=== PATIENT | female | born 1965 | race Caucasian/White ===

== ENCOUNTER 2016-07-29 10:28 | Emergency (ER) | payer BC ==
[~2016-07-29] VITALS: Wt 106.2 kg
[~2016-07-29 10:28] MED LIST: ALBU8.5H3 INH; APR50 PO; ASPI-664 PO; ASPI81TA3 PO; FURO40TA4 PO; GLIP-95 PO; HYD25 PO; LOSA100T47 PO; METF-382 PO; METO-448 PO; METO25TA4 PO
[2016-07-29] MEDS ORDERED: ONDANSETRON 4 MG INJ IV STA (11:41)
[2016-07-29] MEDS ORDERED: morphine 4 MG/ML VIAL IV STA (11:41)
[2016-07-29 12:20] LABS: POTASSIUM 4.3 mmol/L (3.5-5.1)
[2016-07-29 12:22] LABS: CREATININE 1.39 mg/dl (0.44-1.00)
[2016-07-29 12:23] LABS: CALCIUM 9.3 mg/dl (8.4-10.2)
[2016-07-29 12:34] LABS: INR 0.93; PROTIME 12.5 Sec (12.2-14.2)
[2016-07-29 12:35] LABS: PARTIAL THROMBOPLASTIN TIME 32.8 Sec (25.0-35.0)
--- NOTE | 2016-07-29 12:35 | RADRPT ---
PROCEDURE: CT Left Lower Leg without contrast CLINICAL INDICATION: Left calf pain and swelling evaluate for abscess, hematoma, fracture TECHNIQUE: Transaxial images were obtained on a multi-slice CT scanner without intravenous contras t. Sagittal and coronal re-formations were subsequently made. One or more of the following dose reduction techniques were used: - Automated exposure control. - Adjustment of the mA and/or kV according to patient size. - Use of iterative reconstruction technique. Radiation: The CTDIvol is 18.46 mGy and the DLP is 888.56 mGycm. COMPARISON: None. FINDINGS: Osseous structures: The osseous elements appear intact with no fracture or destructive process ident ified. There is mild calcaneal spurring at the insertion of the Achilles tendon and plantar aponeuro sis. Joint spaces: The femoral tibial and patellar femoral as well as the ankle joint spaces appear unrem arkable. No joint effusion is identified. Soft tissues: The muscles appear unremarkable. There is stranding within the subcutaneous fat at th e posterior medial lower leg and within the ankle region. A few punctate calcifications are seen wi thin the subcutaneous fat compatible with phleboliths. IMPRESSION: 1. The osseous elements appear intact and the joint spaces are well maintained with no joint effusi on evident. 2. There is stranding of the subcutaneous fat posteriorly and medially within the lower leg and ank le regions suspicious for inflammation or edema. No abscess is identified within the limitations of lack of intravenous contrast. 3. Mild calcaneal spurring 4. A few punctate calcifications are seen in the subcutaneous fat compatible with phleboliths. Physician Marlon Date Time Electronically viewed and signed by Physician Marlon on 07/29/2016 12:34 /
--- NOTE | 2016-07-29 12:37 | RADRPT ---
PROCEDURE: US Lower extremity Venous. CLINICAL INDICATION: Right leg pain , swelling TECHNIQUE: Multiple sonographic images of the right lower extremity deep venous system was obtaine d utilizing grayscale, color-flow, compressive sonography and doppler imaging with augmentation. Th e images were reviewed on a PACS workstation. COMPARISON: None. FINDINGS: There is normal compressibility and flow within the right common femoral, superficial femoral, poste rior tibial, peroneal and popliteal veins. RPTAT: AA IMPRESSION: No sonographic evidence for deep venous thrombosis. .Donato Dennis MD, MD Date Time Electronically viewed and signed by .Donato Dennis MD, MD on 07/29/2016 12:37 .S/
--- NOTE | 2016-07-29 13:29 | ERD ---
ER Documentation Chief Complaint Date/Time DATE: 07/29/16 TIME: 13:24 Chief Complaint RIGHT LOWER LEG PAIN/REDNESS/SWELLING HPI Morbidly obese 50-year-old female history of diabetes who presents with right lower extremity pain and redness and swelling. Rack Puller use. The patient describes several days of symptoms, pain is noted to be throbbing, associated calf swelling and pain with associated erythema warmth and tenderness. She denies any recent travel, immobilization, no history of DVT. She denies any pleuritic pain or chest pain. Denies any recent trauma. ROS All systems reviewed and are negative except as per history of present illness. Medications Home Meds Active Scripts Ondansetron (Ondansetron Odt) 4 Mg Tab.rapdis, 4 MG PO Q6H Y for NAUSEA AND/OR VOMITING, #30 TAB Prov:DAVID PLASCENCIA MD 07/29/16 Hydrocodone/Acetaminophen ([place] 10-325 Tablet) 1 Each Tablet, 1 TAB PO Q6H Y for PAIN, #12 TAB Prov:DAVID PLASCENCIA MD 07/29/16 Clindamycin Hcl* (Clindamycin Hcl*) 300 Mg Capsule, 300 MG PO TID for 10 Days, CAP Prov:DAVID PLASCENCIA MD 07/29/16 Furosemide* (Furosemide*) 40 Mg Tablet, 40 MG PO BID for 28 Days, TAB Prov:BRYON MICHELLE MD 05/25/16 Metoprolol Tartrate* (Lopressor*) 25 Mg Tab, 25 MG PO BID for 28 Days, TAB Prov:BRYON MICHELLE MD 05/25/16 Hydralazine Hcl* (Hydralazine Hcl*) 50 Mg Tab, 50 MG PO Q8 for 28 Days, TAB Prov:BRYON MICHELLE MD 05/25/16 Aspirin (Aspirin) 81 Mg Chew, 81 MG PO DAILY for 28 Days, TAB Prov:BRYON MICHELLE MD 05/25/16 Reported Medications Aspirin* (Aspirin* (EC)) 81 Mg Tablet.dr, 81 MG PO DAILY, TAB 05/10/16 Hydrochlorothiazide* (Hydrochlorothiazide*) 25 Mg Tab, 25 MG PO DAILY, #30 TAB 05/10/16 Glipizide* (Glipizide*) 10 Mg Tablet, 10 MG PO BID, TAB 05/10/16 Metoprolol Tartrate* (Lopressor*) 25 Mg Tablet, 25 MG PO BID, #60 TAB 05/10/16 Albuterol Sulfate* (Proair HFA*) 8.5 Gm Hfa.aer.ad, 2 PUFF INH Q4H Y for WHEEZING AND SOB, INH 07/02/14 Losartan Potassium* (Cozaar*) 100 Mg Tablet, 100 MG PO DAILY, TAB 07/02/14 Metformin Hcl* (Metformin Hcl*) 500 Mg Tablet, 500 MG PO BID, TAB 07/02/14 Allergies Allergies: Coded Allergies: Penicillins (Verified Allergy, Mild, 05/28/16) PMhx/Soc History of Surgery: Yes (C. Section X4) Anesthesia Reaction: No Hx Neurological Disorder: No Hx Respiratory Disorders: Yes (Asthma) Hx Cardiac Disorders: Yes (HTN, Cholesterol) Hx Psychiatric Problems: No Hx Miscellaneous Medical Probl: Yes (MORBID OBESITY) Hx Alcohol Use: Yes (Social Drinker, Holidays only) Hx Substance Use: No Hx Tobacco Use: No Smoking Status: Never smoker FmHx Family History: No diabetes Physical Exam Vitals Vital Signs Date Time Temp Pulse Resp B/P Pulse Ox O2 Delivery O2 Flow Rate FiO2 07/29/16 14:08 65 18 143/79 99 Room Air 07/29/16 12:00 89 18 135/57 98 Room Air 07/29/16 10:33 97.5 98 18 171/94 95 Physical Exam General: Well developed, well nourished, no acute distress Head: Normocephalic, atraumatic. Eyes: Pupils equally reactive, EOM intact ENT: Moist mucous membranes Neck: Supple, no lymphadenopathy Respiratory: Lungs clear bilaterally, no distress Cardiovascular: RRR, no murmurs, rubs, or gallops Abdominal: Soft, non-tender, non-distended, no peritoneal signs : Deferred MSK: Right lower extremity has erythema warmth and tenderness to the mid unger with induration noted to the medial aspect of the calf. Negative Homans sign, 2 + dorsalis pedis and posterior tibial pulses, no temperature deficits. No crepitus. Neurologic: Alert and oriented, moving all extremities, normal speech, no focal weakness, no cerebellar signs Skin: Right lower extremity as described above Psych: Normal mood Result Diagram: 07/29/16 1200 07/29/16 1200 Results 24 hrs Laboratory Tests Test 07/29/16 12:00 Activated Partial Thromboplast Time 32.8Sec Anion Gap 19 Basophils # 0.010^3/ul Basophils % 0.4% Blood Urea Nitrogen 39mg/dl Calcium Level 9.3mg/dl Carbon Dioxide Level 33mmol/L Chloride Level 91mmol/L Creatine Kinase 90IU/L Creatinine 1.39mg/dl Eosinophils # 0.410^3/ul Eosinophils % 3.4% Glucose Level 162mg/dl Hematocrit 41.6% Hemoglobin 13.8g/dl INR International Normalized Ratio 0.93 Lymphocytes # 1.610^3/ul Lymphocytes % 14.5% Mean Corpuscular Hemoglobin 27.9pg Mean Corpuscular Hemoglobin Concent 33.2g/dl Mean Corpuscular Volume 83.9fl Mean Platelet Volume 9.1fl Monocytes # 0.610^3/ul Monocytes % 5.1% Neutrophils # 8.310^3/ul Neutrophils % 76.6% Nucleated Red Blood Cells # 0.010^3/ul Nucleated Red Blood Cells % 0.0/100WBC Platelet Count 36301^3/UL Potassium Level 4.3mmol/L Prothrombin Time 12.5Sec Prothrombin Time Ratio 1.0 Red Blood Count 4.9510^6/ul Red Cell Distribution Width 21.3% Sodium Level 139mmol/L White Blood Count 10.810^3/ul Current Medications Medications (Trade) Dose Ordered Sig/Sarah Route PRN Reason Start Time Stop Time Status Last Admin Dose Admin Morphine Sulfate (morphine) 4 mg ONCE STAT IV 07/29/16 11:41 07/29/16 11:45 DC 07/29/16 11:57 Ondansetron HCl 4 mg 4 mg ONCE STAT IV 07/29/16 11:41 07/29/16 11:45 DC 07/29/16 11:57 Clindamycin HCl/ Dextrose (Cleocin 600 Mg/ D5W (Pmx)) 50 ml @ 50 mls/hr ONCE IVPB 07/29/16 13:30 07/29/16 14:29 DC 07/29/16 14:05 Procedures/MDM EKG, MONITORS, & DIAGNOSTIC IMAGING: CT right Lower extremity: IMPRESSION: 1. The osseous elements appear intact and the joint spaces are well maintained with no joint effusion evident. 2. There is stranding of the subcutaneous fat posteriorly and medially within the lower leg and ankle regions suspicious for inflammation or edema. No abscess is identified within the limitations of lack of intravenous contrast. 3. Mild calcaneal spurring 4. A few punctate calcifications are seen in the subcutaneous fat compatible with phleboliths. Right Lower extremity duplex: No DVT LAB INTERPRETATION: Slightly elevated creatinine, normal white count MEDICAL DECISION MAKING: The patient presents with nontraumatic right lower extremity swelling, erythema warmth and tenderness. The patient's clinical exam and presentation is either consistent with cellulitis versus hematoma versus DVT. The patient will benefit from CT imaging to rule out this process, no evidence of trauma. Low clinical concern for necrotizing process. The patient has no fever. ER COURSE: The patient was given pain control medication. Her CT shows evidence of stranding but no evidence of abscess or focal collection of fluid. The patient has a negative duplex. The patient was treated with an IV dose of clindamycin and will benefit from outpatient antibiotics. The patient requires close return precautions and I believe she would benefit from repeat evaluation within 24 hours to assure for improvement and no progression of disease process. The patient should return to the emergency room for repeat evaluation. The patient verbalizes understanding. Her pain is well controlled. Again, no evidence of acute vascular process, necrotizing process. I kept the patient and/or family informed of laboratory and diagnostic imaging results throughout the emergency room course. DISPOSITION PLAN: We discussed follow up with the patient's primary care doctor within 24 to 48 hours as needed. We also discussed return to the emergency room for worsening symptoms or worsening condition. Patient to return tomorrow for repeat evaluation Discharge Medications: Clindamycin, [place], Zofran We discussed the use of narcotics including avoidance of operating heavy machinery and driving as well as its addictive properties. Departure Diagnosis: Primary Impression: Cellulitis of right lower extremity Condition: DAVID Sweeney MD Jul 29, 2016 13:29
[2016-07-29] MEDS ORDERED: CLINDAMYCIN 600 MG/D5W (PMX) 50 ML IVPB SCH (13:30)
[2016-07-29] MEDS ORDERED: HYDR-902 PO (14:32)
[2016-07-29] MEDS ORDERED: CLIN-73 PO (14:32)
[2016-07-29] MEDS ORDERED: ONDA4TAB14 PO (14:32)
[2016-07-29 14:34] LABS: HEMOGLOBIN 13.8 g/dl (12.0-16.0); RED BLOOD COUNT 4.95 10^6/ul (4.20-5.40); UNCORRECTED WBC 10.8 10^3/ul (4.8-10.8); WHITE BLOOD COUNT 10.8 10^3/ul (4.8-10.8)
[2016-07-29 14:35] LABS: BASOPHILS % 0.4 % (0.0-2.0); EOSINOPHILS # 0.4 10^3/ul (0.0-0.5); EOSINOPHILS % 3.4 % (0.0-7.0); HEMATOCRIT 41.6 % (37.0-47.0); LYMPHOCYTES # 1.6 10^3/ul (0.8-2.9); LYMPHOCYTES % 14.5 % (15.0-51.0); MEAN CORPUSCULAR HEMOGLOBIN 27.9 pg (29.0-33.0); MEAN CORPUSCULAR HGB CONC 33.2 g/dl (32.0-37.0); MEAN CORPUSCULAR VOLUME 83.9 fl (82.0-101.0); MEAN PLATELET VOLUME 9.1 fl (7.4-10.4); MONOCYTE # 0.6 10^3/ul (0.3-0.9); MONOCYTES % 5.1 % (0.0-11.0); NEUTROPHIL # 8.3 10^3/ul (1.6-7.5); NEUTROPHILS % 76.6 % (39.0-77.0); PLATELET COUNT 325 10^3/UL (140-440); RED CELL DISTRIBUTION WIDTH 21.3 % (11.5-14.5)
[2016-07-29 14:50] VITALS: BP 142/78; PULSE 69; RESP 18; TEMP 98.6
[2016-07-30] MEDS ORDERED: METO-429 PO (14:14)
[2016-07-30] MEDS ORDERED: FURO40TA4 PO (14:14)
== END 2016-07-29 14:51 | disposition home or self-care (01) ==
LOC: E/R 10:28
DX: L03.115 Cellulitis of right lower limb (principal); E11.9 Type 2 diabetes mellitus without complications; I10 Essential (primary) hypertension; J45.909 Unspecified asthma, uncomplicated; E66.9 Obesity, unspecified; Z79.82 Long term (current) use of aspirin; Z79.84 Long term (current) use of oral hypoglycemic drugs
CPT/HCPCS: 36415; 73700; 80048; 82550; 82553; 84484; 85025; 85610; 85730; 93971; 96374; 96375; J2270; J2405; Z7502; Z7610

== ENCOUNTER 2016-07-30 11:46 | Inpatient (IN) | payer BC ==
[~2016-07-30] VITALS: Ht 167.6 cm; Wt 106.0 kg
[~2016-07-30 11:46] MED LIST changes: +CLIN-73 PO; +HYDR-902 PO; +ONDA4TAB14 PO
[2016-07-30] MEDS ORDERED: FURO40TA4 PO (14:14)
[2016-07-30] MEDS ORDERED: METO-429 PO (14:14)
--- NOTE | 2016-07-30 14:42 | ERA ---
ER Documentation Chief Complaint Date/Time DATE: 07/30/16 TIME: 14:41 Chief Complaint R LOWER LEG SWELLING AND REDNESS, SEEN ER YESTERDAY. MORE PAIN AND REDNESS HPI The patient is a 50-year-old female, presenting to the ER because of abdominal pain for the last couple days, 11/17, no aggravating or relieving factor. She was seen in the ER last night for right lower extremity cellulitis treated with clindamycin. She denies fever, chills, neck pain. He complains of nausea and vomiting intermittently for the last 2 days, denies dysuria, diarrhea, constipation. She does not smoke or drink Past medical history: Hypertension, diabetes mellitus ROS All systems reviewed and are negative except as per history of present illness. Medications Home Meds Reported Medications Furosemide* (Furosemide*) 40 Mg Tablet, 40 MG PO BID, TAB 07/30/16 Metoprolol Tartrate* (Lopressor*) 50 Mg Tab, 50 MG PO BID, #60 TAB 07/30/16 Aspirin* (Aspirin* (EC)) 81 Mg Tablet.dr, 81 MG PO DAILY, TAB 05/10/16 Hydrochlorothiazide* (Hydrochlorothiazide*) 25 Mg Tab, 25 MG PO DAILY, #30 TAB 05/10/16 Glipizide* (Glipizide*) 10 Mg Tablet, 10 MG PO BID, TAB 05/10/16 Albuterol Sulfate* (Proair HFA*) 8.5 Gm Hfa.aer.ad, 2 PUFF INH Q4H Y for WHEEZING AND SOB, INH 07/02/14 Losartan Potassium* (Cozaar*) 100 Mg Tablet, 100 MG PO DAILY, TAB 07/02/14 Metformin Hcl* (Metformin Hcl*) 500 Mg Tablet, 500 MG PO BID, TAB 07/02/14 Discontinued Reported Medications Metoprolol Tartrate* (Lopressor*) 25 Mg Tablet, 25 MG PO BID, #60 TAB 05/10/16 Discontinued Scripts Ondansetron (Ondansetron Odt) 4 Mg Tab.rapdis, 4 MG PO Q6H Y for NAUSEA AND/OR VOMITING, #30 TAB Prov:DAVID PLASCENCIA MD 07/29/16 Hydrocodone/Acetaminophen ([place] 10-325 Tablet) 1 Each Tablet, 1 TAB PO Q6H Y for PAIN, #12 TAB Prov:DAVID PLASCENCIA MD 07/29/16 Clindamycin Hcl* (Clindamycin Hcl*) 300 Mg Capsule, 300 MG PO TID for 10 Days, CAP Prov:DAVID PLASCENCIA MD 07/29/16 Furosemide* (Furosemide*) 40 Mg Tablet, 40 MG PO BID for 28 Days, TAB Prov:BRYON MICHELLE MD 05/25/16 Metoprolol Tartrate* (Lopressor*) 25 Mg Tab, 25 MG PO BID for 28 Days, TAB Prov:BRYON MICHELLE MD 05/25/16 Hydralazine Hcl* (Hydralazine Hcl*) 50 Mg Tab, 50 MG PO Q8 for 28 Days, TAB Prov:BRYON MICHELLE MD 05/25/16 Aspirin (Aspirin) 81 Mg Chew, 81 MG PO DAILY for 28 Days, TAB Prov:BRYON MICHELLE MD 05/25/16 Allergies Allergies: Coded Allergies: Penicillins (Verified Allergy, Mild, 07/30/16) PMhx/Soc History of Surgery: Yes (C. Section X4) Anesthesia Reaction: No Hx Neurological Disorder: No Hx Respiratory Disorders: Yes (Asthma) Hx Cardiac Disorders: Yes (HTN, Cholesterol) Hx Psychiatric Problems: No Hx Miscellaneous Medical Probl: Yes (MORBID OBESITY) Hx Alcohol Use: Yes (Social Drinker, Holidays only) Hx Substance Use: No Hx Tobacco Use: No Physical Exam Vitals Vital Signs Date Time Temp Pulse Resp B/P Pulse Ox O2 Delivery O2 Flow Rate FiO2 07/30/16 11:50 97.8 91 20 136/69 98 Physical Exam Const: No acute distress. Head: Atraumatic. Eyes: Normal Conjunctiva. ENT: Normal External Ears, Nose and Mouth. Neck: Full range of motion. No meningismus. Resp: Clear to auscultation bilaterally. Cardio: Regular rate and rhythm, no murmurs. Abd: Soft, non distended, normal bowel sounds, diffuse and moderate abdominal tenderness, no rigidity, rebound, CVA tenderness Skin: No petechiae or rashes. Back: No midline or flank tenderness. Ext: Right lower extremity erythema, no calf tenderness Neur: Awake and alert. No focal deficit Psych: Normal Mood and Affect. Result Diagram: 07/30/16 1455 07/30/16 1455 Results 24 hrs Laboratory Tests Test 07/30/16 14:55 Alanine Aminotransferase (ALT/SGPT) 20IU/L Albumin 4.5g/dl Albumin/Globulin Ratio 1.32 Alkaline Phosphatase 108IU/L Anion Gap 20 Aspartate Amino Transf (AST/SGOT) 24IU/L Basophils # 0.010^3/ul Basophils % 0.2% Blood Morphology Comment Blood Urea Nitrogen 49mg/dl Calcium Level 9.1mg/dl Carbon Dioxide Level 34mmol/L Chloride Level 88mmol/L Creatinine 2.03mg/dl Direct Bilirubin 0.00mg/dl Eosinophils # 0.110^3/ul Eosinophils % 0.7% Globulin 3.40g/dl Glucose Level 183mg/dl Hematocrit 38.9% Hemoglobin 13.0g/dl Indirect Bilirubin 0.5mg/dl Lipase 56U/L Lymphocytes # 1.010^3/ul Lymphocytes % 7.5% Mean Corpuscular Hemoglobin 28.2pg Mean Corpuscular Hemoglobin Concent 33.4g/dl Mean Corpuscular Volume 84.4fl Mean Platelet Volume 8.8fl Monocytes # 0.310^3/ul Monocytes % 2.5% Neutrophils # 12.010^3/ul Neutrophils % 89.1% Nucleated Red Blood Cells # 0.010^3/ul Nucleated Red Blood Cells % 0.0/100WBC Platelet Count 49383^3/UL Potassium Level 4.4mmol/L Red Blood Count 4.6110^6/ul Red Cell Distribution Width 21.1% Sodium Level 138mmol/L Total Bilirubin 0.5mg/dl Total Protein 7.9g/dl White Blood Count 13.510^3/ul Current Medications Medications (Trade) Dose Ordered Sig/Sarah Route PRN Reason Start Time Stop Time Status Last Admin Dose Admin Morphine Sulfate (morphine) 2 mg ONCE STAT IV 07/30/16 14:45 07/30/16 14:47 DC 07/30/16 15:09 Ondansetron HCl 4 mg 4 mg ONCE STAT IV 07/30/16 14:45 07/30/16 14:47 DC 07/30/16 15:09 Sodium Chloride 500 ml @ 500 mls/hr Q1H ONCE IV 07/30/16 18:00 07/30/16 18:59 07/30/16 18:31 Clindamycin HCl/ Dextrose (Cleocin 300 Mg/ D5W (Pmx)) 50 ml @ 100 mls/hr ONCE IVPB 07/30/16 18:00 07/30/16 18:29 DC Procedures/MDM EKG: Read by emergency physician Rate/Rhythm: Normal Sinus Rhythm. 66 beats/min QRS, ST, T-waves: No ST elevation, no T inversion, incomplete right bundle branch block, LVH, lateral T inversion Impression: Abnormal EKG [place] [id number] Radiology Main Line: [phone] DIAGNOSTIC IMAGING REPORT Patient: JAMAR REYES : 1965 Age: 50 Sex: F MR #: [id number] DOS: 07/30/16 1530 Ordering MD: JUDITH DAVIDSON MD Location: E/R Room/Bed: PROCEDURE: CT Abdomen and Pelvis without contrast. CLINICAL INDICATION: Abdominal pain. TECHNIQUE: Multiple contiguous axial CT images of the abdomen and pelvis were obtained without the administration of intravenous contrast. Coronal and sagittal reconstructions were also performed. CTDIvol (mGy): 23.55; Total Exam DLP (mGy-cm): 1168.38. One or more of the following dose reduction techniques were utilized: - Automated exposure control. - Adjustment of the mA and/or kV according to patient size. - Use of iterative reconstruction technique. COMPARISON: None. FINDINGS: Limited imaging of the lower thorax is unremarkable. The liver and spleen are homogeneous in density. The liver is mildly diffusely low in attenuation compatible with mild fatty infiltration. The gallbladder, pancreas and adrenal glands are unremarkable. The kidneys are symmetric in size. There are no nephroureteral stones. There is no hydronephrosis or abnormal perinephric inflammation. The abdominal aorta is normal in caliber. Atherosclerotic calcification is present. There is no periaortic / retroperitoneal lymphadenopathy. The stomach and small and large intestines are unremarkable. The appendix is normal. There are no focal inflammatory changes of the mesentery. There is no mesenteric lymphadenopathy. There is no ascites. The bladder, uterus and adnexa are unremarkable. There is no free pelvic fluid. There is no pelvic sidewall or inguinal lymphadenopathy. Degenerative changes of the spine are observed. Diastasis of the abdominis rectus muscles is observed. IMPRESSION: No evidence of abdominopelvic mass, lymphadenopathy or acute inflammatory pathology. Fatty infiltration of the liver. RPTAT: HLST .Dolly Ruvalcaba MD, Date Time Electronically viewed and signed by .Dolly Ruvalcaba MD, MD on 07/30/2016 17:12 .T/ CC: JUDITH DAVIDSON MD Urinalysis is pending MEDICAL MAKING DECISION: The patient is a 50-year-old female, presenting to the ER because of acute abdominal pain of unclear etiology, acute kidney injury, acute right lower extremity cellulitis. She was treated with morphine 2 mg IV for pain, Zofran formula IV for nausea and clindamycin IV for acute right lower extremity cellulitis and normal saline 400 mL for acute dehydration with good response. The differential diagnoses considered include but are not limited to cholelithiasis, cholecystitis, cystitis, pancreatitis, hepatitis, gastritis, peptic ulcer disease, gastric ulcer, appendicitis, diverticulitis, cholangitis, choledocholithiasis, partial small bowel obstruction. Departure Diagnosis: Primary Impression: Abdominal pain Additional Impressions: Acute kidney injury Dehydration Cellulitis of right lower extremity Condition: Stable Comments I discussed the findings with the patient. I discussed the patient with her physician Dr. Michelle who was made aware of the lab, the treatment, the patient condition. The patient is admitted to medical surgery bed at 5:45 PM JUDITH DAVIDSON MD Jul 30, 2016 14:42
[2016-07-30] MEDS ORDERED: morphine 2 MG INJ IV STA (14:45)
[2016-07-30] MEDS ORDERED: ONDANSETRON 4 MG INJ IV STA ×2 (14:45→18:42)
[2016-07-30 15:04] LABS: BASOPHILS % 0.2 % (0.0-2.0); EOSINOPHILS # 0.1 10^3/ul (0.0-0.5); EOSINOPHILS % 0.7 % (0.0-7.0); HEMATOCRIT 38.9 % (37.0-47.0); LYMPHOCYTES % 7.5 % (15.0-51.0); MEAN CORPUSCULAR HEMOGLOBIN 28.2 pg (29.0-33.0); MEAN CORPUSCULAR HGB CONC 33.4 g/dl (32.0-37.0); MEAN CORPUSCULAR VOLUME 84.4 fl (82.0-101.0); MEAN PLATELET VOLUME 8.8 fl (7.4-10.4); MONOCYTE # 0.3 10^3/ul (0.3-0.9); MONOCYTES % 2.5 % (0.0-11.0); NEUTROPHILS % 89.1 % (39.0-77.0); PLATELET COUNT 322 10^3/UL (140-440); RED BLOOD COUNT 4.61 10^6/ul (4.20-5.40); RED CELL DISTRIBUTION WIDTH 21.1 % (11.5-14.5); UNCORRECTED WBC 13.5 10^3/ul (4.8-10.8); WHITE BLOOD COUNT 13.5 10^3/ul (4.8-10.8)
[2016-07-30 15:10] LABS: CONDITION 1; LH ANALYZER COMMENTS 1
[2016-07-30 15:11] LABS: ALBUMIN 4.5 g/dl (3.3-4.9)
[2016-07-30 15:12] LABS: POTASSIUM 4.4 mmol/L (3.5-5.1)
[2016-07-30 15:14] LABS: ALBUMIN/GLOBULIN RATIO 1.32; BILIRUBIN,INDIRECT 0.5 mg/dl (0-1.1); BILIRUBIN,TOTAL 0.5 mg/dl (0.2-1.3); CREATININE 2.03 mg/dl (0.44-1.00); TOTAL PROTEIN 7.9 g/dl (6.1-8.1)
[2016-07-30 15:15] LABS: CALCIUM 9.1 mg/dl (8.4-10.2)
--- NOTE | 2016-07-30 16:17 | RADRPT ---
PROCEDURE: Chest Radiograph. CLINICAL INDICATION: Fever TECHNIQUE: Single frontal chest radiograph. COMPARISON: Chest radiograph 05/23/2016 FINDINGS: The patient is rotated. Heart size is poorly evaluated. The cardiomediastinal silhouette is grossl y within normal limits. No infiltrate or effusion is seen. The bones are intact. IMPRESSION: 1. No evidence of acute cardiopulmonary disease. RPTAT: KK .Chris Maldonado MD, MD Date Time Electronically viewed and signed by .Chris Maldonado MD, on 07/30/2016 16:17 .B/
--- NOTE | 2016-07-30 17:12 | RADRPT ---
PROCEDURE: CT Abdomen and Pelvis without contrast. CLINICAL INDICATION: Abdominal pain. TECHNIQUE: Multiple contiguous axial CT images of the abdomen and pelvis were obtained without the administration of intravenous contrast. Coronal and sagittal reconstructions were also performed. C TDIvol (mGy): 23.55; Total Exam DLP (mGy-cm): 1168.38. One or more of the following dose reduction techniques were utilized: - Automated exposure control. - Adjustment of the mA and/or kV according to patient size. - Use of iterative reconstruction technique. COMPARISON: None. FINDINGS: Limited imaging of the lower thorax is unremarkable. The liver and spleen are homogeneous in density. The liver is mildly diffusely low in attenuation c ompatible with mild fatty infiltration. The gallbladder, pancreas and adrenal glands are unremarkabl e. The kidneys are symmetric in size. There are no nephroureteral stones. There is no hydronephrosis o r abnormal perinephric inflammation. The abdominal aorta is normal in caliber. Atherosclerotic calcification is present. There is no per iaortic / retroperitoneal lymphadenopathy. The stomach and small and large intestines are unremarkable. The appendix is normal. There are no focal inflammatory changes of the mesentery. There is no mesenteric lymphadenopathy. There is no a scites. The bladder, uterus and adnexa are unremarkable. There is no free pelvic fluid. There is no pelvic sidewall or inguinal lymphadenopathy. Degenerative changes of the spine are observed. Diastasis of the abdominis rectus muscles is observ ed. IMPRESSION: No evidence of abdominopelvic mass, lymphadenopathy or acute inflammatory pathology. Fatty infiltration of the liver. RPTAT: HLST .Dolly Ruvalcaba MD, Date Time Electronically viewed and signed by .Dolly Ruvalcaba MD, MD on 07/30/2016 17:12 .T/
[2016-07-30] MEDS ORDERED: SOD CHLORIDE 0.9% 500 ML IV ONE (18:00)
[2016-07-30] MEDS ORDERED: CLINDAMYCIN 300 MG/D5W (PMX) 50 ML IVPB SCH (18:00)
[2016-07-30 18:52] LABS: ADD UMIC YES; URINE BILIRUBIN (Dip) NEGATIVE (NEGATIVE); URINE BLOOD (Dip) NEGATIVE (NEGATIVE); URINE COLOR LT. YELLOW (YELLOW); URINE GLUCOSE (Dip) NEGATIVE (NEGATIVE); URINE KETONES (Dip) NEGATIVE (NEGATIVE); URINE LEUKOCYTE ESTERASE (Dip) NEGATIVE (NEGATIVE); URINE NITRITE (Dip) NEGATIVE (NEGATIVE); URINE TOTAL PROTEIN (Dip) 2+ (NEGATIVE); URINE UROBILINOGEN (Dip) 0.2 E.U./dL (0.1-1.0)
[2016-07-30] MEDS ORDERED: morphine 2 MG INJ IV ONE (19:00)
[2016-07-30 19:05] LABS: BACTERIA,URINE MODERATE; URINE RBCS 0-2 /HPF (0)
[2016-07-30] MEDS ORDERED: GLUCAGON 1 MG INJ IM PRN (20:30)
[2016-07-30] MEDS ORDERED: GLUCOSE GEL 15 GRAM TUBE PO PRN (20:30)
[2016-07-30] MEDS ORDERED: ALBUTEROL HFA 8 GM INHALER INH PRN (20:30)
[2016-07-30] MEDS ORDERED: GLUCOSE GEL 15 GRAM TUBE BUCCAL PRN (20:30)
[2016-07-30] MEDS ORDERED: DEXTROSE 50% 50 ML SYRINGE IV PRN ×2 (20:30)
[2016-07-30] MEDS: glipiZIDE 10 MG TAB PO SCH (21:00)
[2016-07-30] MEDS: FUROSEMIDE 40 MG TAB PO SCH (21:39)
[2016-07-30] MEDS: METOPROLOL 50 MG TAB PO SCH (21:39)
--- NOTE | 2016-07-30 22:25 | QN ---
Documentation Comment [id number] BRYON MICHELLE MD Jul 30, 2016 22:25
[2016-07-30 22:41] VITALS: TEMP 98.9
[2016-07-30] MEDS ORDERED: ONDANSETRON 4 MG INJ IV PRN (23:00)
[2016-07-30] MEDS ORDERED: NACL 0.9% 3 ML SYG IV SCH (23:00)
[2016-07-30 23:35] VITALS: Ht 167.6 cm; Wt 106.0 kg
--- NOTE | 2016-07-30 23:58 | HP ---
DATE OF ADMISSION: 07/30/2016 HISTORY OF PRESENT ILLNESS: The patient with history of acute hypoxemic hypercapnic respiratory mary lure, congestive heart failure, history of renal insufficiency, obstructive sleep apnea, obesity hyp oventilation syndrome, obesity, dyslipidemia, atherosclerotic heart disease. The patient now presen ts with right lower extremity redness, swelling, and pain for a few days and patient is being admitt ed for further management. PAST MEDICAL HISTORY: As mentioned above. ALLERGY HISTORY: PENICILLIN. SOCIAL HISTORY: Negative. MEDICATION HISTORY: 1. Albuterol. 2. Aspirin. 3. Lasix. 4. Glipizide. 5. Hydrochlorothiazide. 6. Losartan. 7. Metformin. 8. Metoprolol. REVIEW OF SYSTEMS: HEENT: Unremarkable. RESPIRATORY: Unremarkable. CARDIOVASCULAR: Unremarkable. ABDOMEN: Unremarkable. EXTREMITIES: Right lower extremity pain, swelling, redness. CENTRAL NERVOUS SYSTEM: Unremarkable. PHYSICAL EXAMINATION: GENERAL: Overweight female, awake, alert. VITAL SIGNS: Stable. HEAD: Atraumatic, normocephalic. Pupils equal, reactive to light. NECK: Supple. No JVD. LUNGS: Clear. CARDIOVASCULAR: S1, S2 normal. ABDOMEN: Soft, obese, bowel sounds present. No palpable mass or hepatosplenomegaly. MUSCULOSKELETAL: Right leg is warm, swollen, tender, red, erythematous. LABORATORY DATA: Shows WBC 13.5, hematocrit 38.9, platelet count is 322. Sodium 138, potassium 4.4 , BUN 49, creatinine 2.03. The patient has a creatinine of 1.95 on 05/28/2016 and creatinine of 1.3 9 on 07/29. Lower extremity CT scan done on 07/29/2016 shows osseous elements appear intact with st randing of the subcutaneous fat. No evidence of DVT, but ultrasound in the past. IMPRESSION: 1. Right lower extremity cellulitis. 2. Acute kidney injury. 3. Hypertension. 4. History of chronic obstructive pulmonary disease. 5. Atherosclerotic heart disease. 6. The patient has diabetes mellitus. PLAN: To continue home medications, sliding scale, antibiotics. DVT prophylaxis. Orders were done . Dictated By: BRYON MICHELLE MD BS/NTS Conf#: [id number] DID#: [id number]
[2016-07-31] MEDS: SOD CHLORIDE 0.9% 1,000 ML IV SCH ×2 (01:30→16:59)
[2016-07-31] MEDS: ACCUCHECK AT 2AM (Patients on SS coverage) XX SCH (02:00)
[2016-07-31] MEDS: HYDROCODONE/APAP (5/325) TAB PO PRN ×2 (03:01→18:20)
[2016-07-31] MEDS: FUROSEMIDE 40 MG TAB PO SCH ×2 (05:46→16:58)
[2016-07-31] MEDS ORDERED: PANTOPRAZOLE 40 MG INJ IV SCH (06:00)
[2016-07-31 06:23] LABS: BASOPHILS % 0.2 % (0.0-2.0); EOSINOPHILS # 0.4 10^3/ul (0.0-0.5); EOSINOPHILS % 2.6 % (0.0-7.0); HEMATOCRIT 39.4 % (37.0-47.0); HEMOGLOBIN 13.3 g/dl (12.0-16.0); LYMPHOCYTES # 2.5 10^3/ul (0.8-2.9); LYMPHOCYTES % 18.4 % (15.0-51.0); MEAN CORPUSCULAR HEMOGLOBIN 28.5 pg (29.0-33.0); MEAN CORPUSCULAR HGB CONC 33.6 g/dl (32.0-37.0); MEAN CORPUSCULAR VOLUME 84.9 fl (82.0-101.0); MEAN PLATELET VOLUME 8.8 fl (7.4-10.4); MONOCYTES % 7.6 % (0.0-11.0); NEUTROPHIL # 9.7 10^3/ul (1.6-7.5); NEUTROPHILS % 71.2 % (39.0-77.0); PLATELET COUNT 327 10^3/UL (140-440); RED BLOOD COUNT 4.64 10^6/ul (4.20-5.40); UNCORRECTED WBC 13.6 10^3/ul (4.8-10.8); WHITE BLOOD COUNT 13.6 10^3/ul (4.8-10.8)
[2016-07-31 06:25] LABS: CONDITION 1; LH ANALYZER COMMENTS 1
[2016-07-31 06:31] LABS: ALBUMIN 4.2 g/dl (3.3-4.9); POTASSIUM 4.1 mmol/L (3.5-5.1)
[2016-07-31 06:33] LABS: BILIRUBIN,INDIRECT 0.4 mg/dl (0-1.1); BILIRUBIN,TOTAL 0.4 mg/dl (0.2-1.3); CREATININE 1.76 mg/dl (0.44-1.00)
[2016-07-31 06:34] LABS: ALBUMIN/GLOBULIN RATIO 1.27; CALCIUM 8.8 mg/dl (8.4-10.2); TOTAL PROTEIN 7.5 g/dl (6.1-8.1)
[2016-07-31 07:23] VITALS: BP 144/65; RESP 18
[2016-07-31] MEDS: INSULIN ASPART [NOVOLOG] 3 ML PEN SC SCH ×4 (08:00→20:21)
[2016-07-31] MEDS: LEVOFLOXACIN 500MG/D5W (PMX) 100 ML IVPB SCH (08:16)
[2016-07-31] MEDS: ASPIRIN (EC) 81 MG TAB PO SCH (08:17)
[2016-07-31] MEDS: LOSARTAN 50 MG TAB PO SCH (08:17)
[2016-07-31] MEDS: METOPROLOL 50 MG TAB PO SCH ×2 (08:18→20:16)
[2016-07-31] MEDS: glipiZIDE 10 MG TAB PO SCH ×2 (08:18→16:57)
[2016-07-31] MEDS: ENOXAPARIN 40 MG/0.4 ML SYG SC SCH (08:20)
[2016-07-31 19:23] VITALS: BP 128/58; RESP 16
--- NOTE | 2016-07-31 20:37 | PN ---
Date/Time of Note Date/Time of Note DATE: 07/31/16 TIME: 20:36 Assessment/Plan VTE Prophylaxis VTE Prophylaxis Intervention: other Lines/Catheters [facility] Type (from [facility] Peripheral IV Urinary Cath still in place: No Assessment/Plan Chief Complaint/Hosp Course IMPRESSION: 1. Right lower extremity cellulitis. 2. Acute kidney injury. 3. Hypertension. 4. History of chronic obstructive pulmonary disease. 5. Atherosclerotic heart disease. 6. The patient has diabetes mellitus [facility]IOT[facility] Problems: Subjective 24 Hr Interval Summary Gastrointestinal: no complaints Genitourinary: no complaints Exam/Review of Systems Vital Signs Vitals Vital Signs Date Time Temp Pulse Resp B/P Pulse Ox O2 Delivery O2 Flow Rate FiO2 07/31/16 19:23 98.2 87 16 128/58 87 07/31/16 07:55 Nasal Cannula 2.0 Intake and Output 07/30/16 07/30/16 07/31/16 15:00 23:00 07:00 Intake Total 525 ml Output Total 2 ml Balance 523 ml Exam Respiratory: clear to auscultation Cardiovascular: regular rate and rhythm Gastrointestinal: bowel sounds (+), soft Extremities: edema (+) Results Result Diagram: 07/31/16 0529 07/31/16 0529 Results 24 hrs Laboratory Tests Test 07/31/16 01:58 07/31/16 05:29 07/31/16 07:39 07/31/16 11:44 Bedside Glucose 94 116 74 Alanine Aminotransferase (ALT/SGPT) 16 Albumin 4.2 Albumin/Globulin Ratio 1.27 Alkaline Phosphatase 98 Anion Gap 18 H Aspartate Amino Transf (AST/SGOT) 26 Basophils # 0.0 Basophils % 0.2 Blood Morphology Comment Blood Urea Nitrogen 43 H Calcium Level 8.8 Carbon Dioxide Level 34 H Chloride Level 91 L Creatinine 1.76 H Direct Bilirubin 0.00 Eosinophils # 0.4 Eosinophils % 2.6 Globulin 3.30 H Glucose Level 101 # Hematocrit 39.4 Hemoglobin 13.3 Indirect Bilirubin 0.4 Lymphocytes # 2.5 Lymphocytes % 18.4 Mean Corpuscular Hemoglobin 28.5 L Mean Corpuscular Hemoglobin Concent 33.6 Mean Corpuscular Volume 84.9 Mean Platelet Volume 8.8 Monocytes # 1.0 H Monocytes % 7.6 Neutrophils # 9.7 H Neutrophils % 71.2 Nucleated Red Blood Cells # 0.0 Nucleated Red Blood Cells % 0.0 Platelet Count 327 Potassium Level 4.1 Red Blood Count 4.64 Red Cell Distribution Width 21.0 H Sodium Level 139 Total Bilirubin 0.4 Total Protein 7.5 White Blood Count 13.6 H Test 07/31/16 16:22 07/31/16 20:20 Bedside Glucose 87 70 Medications Medications Current Medications Albuterol (Ventolin Hfa) 2 puff Q4H PRN INH WHEEZING AND SOB; Start 07/30/16 at 20:30 Aspirin (Halfprin) 81 mg DAILY PO Last administered on 07/31/16 08:17; Admin Dose 81 MG; Start 07/31/16 at 09:00 Furosemide (Lasix) 40 mg BID@06,18 PO Last administered on 07/31/16 16:58; Admin Dose 40 MG; Start 07/30/16 at 21:00 Losartan Potassium (Cozaar) 100 mg DAILY PO Last administered on 07/31/16 08: 17; Admin Dose 100 MG; Start 07/31/16 at 09:00 Metoprolol Tartrate (Lopressor) 50 mg BID PO Last administered on 07/31/16 20: 16; Admin Dose 50 MG; Start 07/30/16 at 21:00 Miscellaneous Information 1 ea NOTE XX ; Start 07/30/16 at 20:30 Glucose (Glutose) 15 gm Q15M PRN PO DECREASED GLUCOSE; Start 07/30/16 at 20:30 Glucose (Glutose) 22.5 gm Q15M PRN PO DECREASED GLUCOSE; Start 07/30/16 at 20: 30 Dextrose (D50w Syringe) 25 ml Q15M PRN IV DECREASED GLUCOSE; Start 07/30/16 at 20:30 Dextrose (D50w Syringe) 50 ml Q15M PRN IV DECREASED GLUCOSE; Start 07/30/16 at 20:30 Glucagon (Glucagen) 1 mg Q15M PRN IM DECREASED GLUCOSE; Start 07/30/16 at 20:30 Glucose 15 gm 15 gm Q15M PRN BUCCAL DECREASED GLUCOSE; Start 07/30/16 at 20:30 Sodium Chloride (NS) 1,000 ml @ 50 mls/hr Q20H IV Last administered on 01:30; Admin Dose 50 MLS/HR; Start 07/30/16 at 22:33 Ondansetron HCl (Zofran Inj) 4 mg Q6H PRN IV NAUSEA AND/OR VOMITING; Start at 23:00 Acetaminophen (Tylenol Tab) 650 mg Q6H PRN PO PAIN LEVEL 1-3 OR FEVER; Start at 23:00 Acetaminophen/ Hydrocodone Bitart ([place] (5/325)) 1 tab Q6H PRN PO MODERATE PAIN LEVEL 4-6 Last administered on 07/31/16 18:20; Admin Dose 1 TAB; Start at 23:00 Enoxaparin Sodium 40 mg 40 mg DAILY SC Last administered on 07/31/16 08:20; Admin Dose 40 MG; Start 07/31/16 at 09:00 Levofloxacin/ Dextrose (Levaquin 500mg/ D5W 100 ml (Pmx)) 100 ml @ 100 mls/hr DAILY IVPB Last administered on 07/31/16 08:16; Admin Dose 100 MLS/HR; Start 07/31/16 at 09:00 Diagnostic Test (Pha) (Accucheck) 1 ea 02 XX ; Start 07/31/16 at 02:00 Pantoprazole (Protonix Tab) 40 mg DAILY@06 PO ; Start 08/01/16 at 06:00 BRYON MICHELLE MD Jul 31, 2016 20:37
[2016-07-31 21:46] VITALS: BP 125/65; PULSE 71
[2016-08-01] MEDS: ACCUCHECK AT 2AM (Patients on SS coverage) XX SCH (02:00)
[2016-08-01] MEDS: HYDROCODONE/APAP (5/325) TAB PO PRN ×2 (03:41→16:36)
[2016-08-01] MEDS: PANTOPRAZOLE (EC) 40 MG TAB PO SCH (05:31)
[2016-08-01] MEDS: SOD CHLORIDE 0.9% 1,000 ML IV SCH (05:32)
[2016-08-01 05:33] LABS: BASOPHILS % 0.2 % (0.0-2.0); EOSINOPHILS # 0.3 10^3/ul (0.0-0.5); EOSINOPHILS % 2.9 % (0.0-7.0); HEMATOCRIT 38.3 % (37.0-47.0); HEMOGLOBIN 12.6 g/dl (12.0-16.0); LYMPHOCYTES # 2.2 10^3/ul (0.8-2.9); LYMPHOCYTES % 19.1 % (15.0-51.0); MEAN CORPUSCULAR HEMOGLOBIN 28.1 pg (29.0-33.0); MEAN CORPUSCULAR VOLUME 85.3 fl (82.0-101.0); MEAN PLATELET VOLUME 8.8 fl (7.4-10.4); MONOCYTE # 0.9 10^3/ul (0.3-0.9); NEUTROPHIL # 8.1 10^3/ul (1.6-7.5); NEUTROPHILS % 69.8 % (39.0-77.0); PLATELET COUNT 321 10^3/UL (140-440); RED BLOOD COUNT 4.49 10^6/ul (4.20-5.40); RED CELL DISTRIBUTION WIDTH 20.8 % (11.5-14.5); UNCORRECTED WBC 11.6 10^3/ul (4.8-10.8); WHITE BLOOD COUNT 11.6 10^3/ul (4.8-10.8)
[2016-08-01] MEDS: FUROSEMIDE 40 MG TAB PO SCH ×2 (05:35→17:56)
[2016-08-01 05:40] LABS: CONDITION 1; LH ANALYZER COMMENTS 1
[2016-08-01 07:51] VITALS: BP 124/57; RESP 16
[2016-08-01] MEDS: INSULIN ASPART [NOVOLOG] 3 ML PEN SC SCH ×4 (08:00→21:00)
[2016-08-01] MEDS: glipiZIDE 10 MG TAB PO SCH ×2 (08:06→16:36)
[2016-08-01] MEDS: METOPROLOL 50 MG TAB PO SCH ×2 (08:06→20:26)
[2016-08-01] MEDS: LEVOFLOXACIN 500MG/D5W (PMX) 100 ML IVPB SCH (08:07)
[2016-08-01] MEDS: ASPIRIN (EC) 81 MG TAB PO SCH (08:07)
[2016-08-01] MEDS: LOSARTAN 50 MG TAB PO SCH (08:07)
[2016-08-01] MEDS: ENOXAPARIN 40 MG/0.4 ML SYG SC SCH (08:08)
--- NOTE | 2016-08-01 18:44 | PN ---
Date/Time of Note Date/Time of Note DATE: 08/01/16 TIME: 18:42 Assessment/Plan VTE Prophylaxis VTE Prophylaxis Intervention: other Lines/Catheters [facility] ([facility] [place] Urinary Cath still in place: No Assessment/Plan Chief Complaint/Hosp Course IMPRESSION: 1. Right lower extremity cellulitis. BETTER 2. Acute kidney injury. 3. Hypertension. 4. History of chronic obstructive pulmonary disease. 5. Atherosclerotic heart disease. 6. The patient has diabetes mellitus [facility]TIBIOT[facility] Problems: Subjective 24 Hr Interval Summary Gastrointestinal: no complaints Genitourinary: no complaints Exam/Review of Systems Vital Signs Vitals Vital Signs Date Time Temp Pulse Resp B/P Pulse Ox O2 Delivery O2 Flow Rate FiO2 08/01/16 07:51 98.4 60 16 124/57 90 07/31/16 20:00 Nasal Cannula 2.0 Intake and Output 07/31/16 07/31/16 08/01/16 15:00 23:00 07:00 Intake Total 100 ml 1170 ml 835 ml Output Total 550 ml Balance 100 ml 620 ml 835 ml Exam Respiratory: clear to auscultation Cardiovascular: regular rate and rhythm Gastrointestinal: bowel sounds (+), soft Extremities: edema (/REDNESS LESS) Results Result Diagram: 08/01/16 0422 07/31/16 0529 Results 24 hrs Laboratory Tests Test 07/31/16 20:20 08/01/16 04:22 08/01/16 07:52 08/01/16 12:00 Bedside Glucose 70 94 128 Basophils # 0.0 Basophils % 0.2 Blood Morphology Comment Eosinophils # 0.3 Eosinophils % 2.9 Hematocrit 38.3 Hemoglobin 12.6 Lymphocytes # 2.2 Lymphocytes % 19.1 Mean Corpuscular Hemoglobin 28.1 L Mean Corpuscular Hemoglobin Concent 33.0 Mean Corpuscular Volume 85.3 Mean Platelet Volume 8.8 Monocytes # 0.9 Monocytes % 8.0 Neutrophils # 8.1 H Neutrophils % 69.8 Nucleated Red Blood Cells # 0.0 Nucleated Red Blood Cells % 0.0 Platelet Count 321 Red Blood Count 4.49 Red Cell Distribution Width 20.8 H White Blood Count 11.6 H Test 08/01/16 16:35 Bedside Glucose 99 Medications Medications Current Medications Albuterol (Ventolin Hfa) 2 puff Q4H PRN INH WHEEZING AND SOB; Start 07/30/16 at 20:30 Aspirin (Halfprin) 81 mg DAILY PO Last administered on 08/01/16 08:07; Admin Dose 81 MG; Start 07/31/16 at 09:00 Furosemide (Lasix) 40 mg BID@06,18 PO Last administered on 08/01/16 17:56; Admin Dose 40 MG; Start 07/30/16 at 21:00 Losartan Potassium (Cozaar) 100 mg DAILY PO Last administered on 08/01/16 08: 07; Admin Dose 100 MG; Start 07/31/16 at 09:00 Metoprolol Tartrate (Lopressor) 50 mg BID PO Last administered on 08/01/16 08: 06; Admin Dose 50 MG; Start 07/30/16 at 21:00 Miscellaneous Information 1 ea NOTE XX ; Start 07/30/16 at 20:30 Glucose (Glutose) 15 gm Q15M PRN PO DECREASED GLUCOSE; Start 07/30/16 at 20:30 Glucose (Glutose) 22.5 gm Q15M PRN PO DECREASED GLUCOSE; Start 07/30/16 at 20: 30 Dextrose (D50w Syringe) 25 ml Q15M PRN IV DECREASED GLUCOSE; Start 07/30/16 at 20:30 Dextrose (D50w Syringe) 50 ml Q15M PRN IV DECREASED GLUCOSE; Start 07/30/16 at 20:30 Glucagon (Glucagen) 1 mg Q15M PRN IM DECREASED GLUCOSE; Start 07/30/16 at 20:30 Glucose 15 gm 15 gm Q15M PRN BUCCAL DECREASED GLUCOSE; Start 07/30/16 at 20:30 Sodium Chloride (NS) 1,000 ml @ 50 mls/hr Q20H IV Last administered on 05:32; Admin Dose 50 MLS/HR; Start 07/30/16 at 22:33 Ondansetron HCl (Zofran Inj) 4 mg Q6H PRN IV NAUSEA AND/OR VOMITING; Start at 23:00 Acetaminophen (Tylenol Tab) 650 mg Q6H PRN PO PAIN LEVEL 1-3 OR FEVER; Start at 23:00 Acetaminophen/ Hydrocodone Bitart ([place] (5/325)) 1 tab Q6H PRN PO MODERATE PAIN LEVEL 4-6 Last administered on 08/01/16 16:36; Admin Dose 1 TAB; Start at 23:00 Enoxaparin Sodium 40 mg 40 mg DAILY SC Last administered on 08/01/16 08:08; Admin Dose 40 MG; Start 07/31/16 at 09:00 Levofloxacin/ Dextrose (Levaquin 500mg/ D5W 100 ml (Pmx)) 100 ml @ 100 mls/hr DAILY IVPB Last administered on 08/01/16 08:07; Admin Dose 100 MLS/HR; Start 07/31/16 at 09:00 Diagnostic Test (Pha) (Accucheck) 1 ea 02 XX ; Start 07/31/16 at 02:00 Pantoprazole (Protonix Tab) 40 mg DAILY@06 PO Last administered on 08/01/16 05 :31; Admin Dose 40 MG; Start 08/01/16 at 06:00 BRYON MICHELLE MD Aug 01, 2016 18:44
[2016-08-01 19:37] VITALS: BP 177/76; RESP 16
[2016-08-01] MEDS: GLUCOSE GEL 15 GRAM TUBE PO PRN (19:57)
[2016-08-02] MEDS: ACCUCHECK AT 2AM (Patients on SS coverage) XX SCH (02:00)
[2016-08-02] MEDS: GLUCOSE GEL 15 GRAM TUBE PO PRN (02:06)
[2016-08-02] MEDS: HYDROCODONE/APAP (5/325) TAB PO PRN ×3 (02:52→20:16)
[2016-08-02] MEDS: DEXTROSE 5%-0.45% NACL 1,000 ML IV SCH (03:33)
[2016-08-02] MEDS: PANTOPRAZOLE (EC) 40 MG TAB PO SCH (05:34)
[2016-08-02] MEDS: FUROSEMIDE 40 MG TAB PO SCH ×2 (05:37→17:42)
[2016-08-02 05:45] LABS: ALBUMIN 3.8 g/dl (3.3-4.9)
[2016-08-02 05:46] LABS: POTASSIUM 4.2 mmol/L (3.5-5.1)
[2016-08-02 05:48] LABS: ALBUMIN/GLOBULIN RATIO 1.05; BILIRUBIN,INDIRECT 0.2 mg/dl (0-1.1); BILIRUBIN,TOTAL 0.2 mg/dl (0.2-1.3); CREATININE 1.38 mg/dl (0.44-1.00); TOTAL PROTEIN 7.4 g/dl (6.1-8.1)
[2016-08-02 05:49] LABS: CALCIUM 8.8 mg/dl (8.4-10.2)
[2016-08-02 05:50] LABS: BASOPHILS % 0.3 % (0.0-2.0); EOSINOPHILS # 0.3 10^3/ul (0.0-0.5); EOSINOPHILS % 2.5 % (0.0-7.0); HEMOGLOBIN 12.4 g/dl (12.0-16.0); LYMPHOCYTES # 1.8 10^3/ul (0.8-2.9); LYMPHOCYTES % 14.4 % (15.0-51.0); MEAN CORPUSCULAR HEMOGLOBIN 27.9 pg (29.0-33.0); MEAN CORPUSCULAR HGB CONC 32.5 g/dl (32.0-37.0); MEAN CORPUSCULAR VOLUME 85.7 fl (82.0-101.0); MEAN PLATELET VOLUME 8.8 fl (7.4-10.4); MONOCYTE # 0.7 10^3/ul (0.3-0.9); MONOCYTES % 5.9 % (0.0-11.0); NEUTROPHIL # 9.7 10^3/ul (1.6-7.5); NEUTROPHILS % 76.9 % (39.0-77.0); PLATELET COUNT 338 10^3/UL (140-440); RED BLOOD COUNT 4.44 10^6/ul (4.20-5.40); RED CELL DISTRIBUTION WIDTH 20.1 % (11.5-14.5); UNCORRECTED WBC 12.6 10^3/ul (4.8-10.8); WHITE BLOOD COUNT 12.6 10^3/ul (4.8-10.8)
[2016-08-02 06:38] LABS: CONDITION 1; LH ANALYZER COMMENTS 1
[2016-08-02 07:57] VITALS: BP 138/61; RESP 18
[2016-08-02] MEDS: INSULIN ASPART [NOVOLOG] 3 ML PEN SC SCH ×4 (08:00→20:24)
[2016-08-02] MEDS: glipiZIDE 10 MG TAB PO SCH ×2 (09:50→17:42)
[2016-08-02] MEDS: LOSARTAN 50 MG TAB PO SCH (09:50)
[2016-08-02] MEDS: METOPROLOL 50 MG TAB PO SCH ×2 (09:50→20:15)
[2016-08-02] MEDS: ASPIRIN (EC) 81 MG TAB PO SCH (09:50)
[2016-08-02] MEDS: LEVOFLOXACIN 500MG/D5W (PMX) 100 ML IVPB SCH (09:51)
[2016-08-02] MEDS: ENOXAPARIN 40 MG/0.4 ML SYG SC SCH (09:52)
[2016-08-02 16:25] VITALS: BP 176/84; PULSE 68; RESP 18
[2016-08-02 17:44] VITALS: BP 159/82; PULSE 71; RESP 18
[2016-08-02 20:00] VITALS: BP 182/86; PULSE 68; RESP 18; RESP 19
--- NOTE | 2016-08-02 20:31 | PN ---
Date/Time of Note Date/Time of Note DATE: 08/02/16 TIME: 20:29 Assessment/Plan VTE Prophylaxis VTE Prophylaxis Intervention: other Lines/Catheters IV [facility] Type (from [facility]): Peripheral IV Urinary Cath still in place: No Assessment/Plan Chief Complaint/Hosp Course IMPRESSION: 1. Right lower extremity cellulitis. 2. Acute kidney injury. 3. Hypertension. 4. History of chronic obstructive pulmonary disease. 5. Atherosclerotic heart disease. 6. The patient has diabetes mellitus PLAN [facility]TIBIOT[facility] dr villalba to see called Problems: Subjective 24 Hr Interval Summary ENT: no complaints Respiratory: no complaints Cardiovascular: no complaints Exam/Review of Systems Vital Signs Vitals Vital Signs Date Time Temp Pulse Resp B/P Pulse Ox O2 Delivery O2 Flow Rate FiO2 08/02/16 17:44 71 18 159/82 08/02/16 07:57 98.5 93 07/31/16 20:00 Nasal Cannula 2.0 Intake and Output 08/01/16 08/01/16 08/02/16 15:00 23:00 07:00 Intake Total 1870 ml 1800 ml Output Total 700 ml Balance 1870 ml 1100 ml Exam Neck: supple Respiratory: clear to auscultation Cardiovascular: regular rate and rhythm Gastrointestinal: soft Musculoskeletal: nl extremities to inspection Skin: other (rt leg wound+) Results Result Diagram: 08/02/16 04208/02/16 0425 Results 24 hrs Laboratory Tests Test 08/01/16 20:48 08/02/16 02:01 08/02/16 02:26 08/02/16 02:28 Bedside Glucose 107 52 L 53 L 56 L Test 08/02/16 02:49 08/02/16 03:09 08/02/16 03:28 08/02/16 04:25 Bedside Glucose 66 L 175 162 Alanine Aminotransferase (ALT/SGPT) 25 Albumin 3.8 Albumin/Globulin Ratio 1.05 Alkaline Phosphatase 86 Anion Gap 15 Aspartate Amino Transf (AST/SGOT) 21 Basophils # 0.0 Basophils % 0.3 Blood Morphology Comment Blood Urea Nitrogen 30 #H Calcium Level 8.8 Carbon Dioxide Level 34 H Chloride Level 93 L Creatinine 1.38 H Direct Bilirubin 0.00 Eosinophils # 0.3 Eosinophils % 2.5 Globulin 3.60 H Glucose Level 108 Hematocrit 38.0 Hemoglobin 12.4 Indirect Bilirubin 0.2 Lymphocytes # 1.8 Lymphocytes % 14.4 L Mean Corpuscular Hemoglobin 27.9 L Mean Corpuscular Hemoglobin Concent 32.5 Mean Corpuscular Volume 85.7 Mean Platelet Volume 8.8 Monocytes # 0.7 Monocytes % 5.9 Neutrophils # 9.7 H Neutrophils % 76.9 Nucleated Red Blood Cells # 0.0 Nucleated Red Blood Cells % 0.0 Platelet Count 338 Potassium Level 4.2 Red Blood Count 4.44 Red Cell Distribution Width 20.1 H Sodium Level 138 Total Bilirubin 0.2 Total Protein 7.4 White Blood Count 12.6 H Test 08/02/16 08:42 08/02/16 12:32 08/02/16 17:33 Bedside Glucose 89 175 127 Medications Medications Current Medications Albuterol (Ventolin Hfa) 2 puff Q4H PRN INH WHEEZING AND SOB; Start 07/30/16 at 20:30 Aspirin (Halfprin) 81 mg DAILY PO Last administered on 08/02/16 09:50; Admin Dose 81 MG; Start 07/31/16 at 09:00 Furosemide (Lasix) 40 mg BID@,18 PO Last administered on 08/02/16 17:42; Admin Dose 40 MG; Start 07/30/16 at 21:00 Losartan Potassium (Cozaar) 100 mg DAILY PO Last administered on 08/02/16 09: 50; Admin Dose 100 MG; Start 07/31/16 at 09:00 Metoprolol Tartrate (Lopressor) 50 mg BID PO Last administered on 08/02/16 20: 15; Admin Dose 50 MG; Start 07/30/16 at 21:00 Miscellaneous Information 1 ea NOTE XX ; Start 07/30/16 at 20:30 Glucose (Glutose) 15 gm Q15M PRN PO DECREASED GLUCOSE Last administered on 08/02 02:06; Admin Dose 15 GM; Start 07/30/16 at 20:30 Glucose (Glutose) 22.5 gm Q15M PRN PO DECREASED GLUCOSE; Start 07/30/16 at 20: 30 Dextrose (D50w Syringe) 25 ml Q15M PRN IV DECREASED GLUCOSE Last administered on 08/02/16 03:01; Admin Dose 25 ML; Start 07/30/16 at 20:30 Dextrose (D50w Syringe) 50 ml Q15M PRN IV DECREASED GLUCOSE; Start 07/30/16 at 20:30 Glucagon (Glucagen) 1 mg Q15M PRN IM DECREASED GLUCOSE; Start 07/30/16 at 20:30 Glucose (Glutose) 15 gm Q15M PRN BUCCAL DECREASED GLUCOSE; Start 07/30/16 at 20 :30 Ondansetron HCl (Zofran Inj) 4 mg Q6H PRN IV NAUSEA AND/OR VOMITING; Start at 23:00 Acetaminophen (Tylenol Tab) 650 mg Q6H PRN PO PAIN LEVEL 1-3 OR FEVER; Start at 23:00 Acetaminophen/ Hydrocodone Bitart ([place] (5/325)) 1 tab Q6H PRN PO MODERATE PAIN LEVEL 4-6 Last administered on 08/02/16 20:16; Admin Dose 1 TAB; Start at 23:00 Enoxaparin Sodium 40 mg 40 mg DAILY SC Last administered on 08/02/16 09:52; Admin Dose 40 MG; Start 07/31/16 at 09:00 Levofloxacin/ Dextrose (Levaquin 500mg/ D5W 100 ml (Pmx)) 100 ml @ 100 mls/hr DAILY IVPB Last administered on 08/02/16 09:51; Admin Dose 100 MLS/HR; Start 07/31/16 at 09:00 Diagnostic Test (Pha) (Accucheck) 1 ea 02 XX ; Start 07/31/16 at 02:00 Pantoprazole 40 mg 40 mg DAILY@06 PO Last administered on 08/02/16 05:34; Admin Dose 40 MG; Start 08/01/16 at 06:00 Dextrose/Sodium Chloride (D5-1/2ns) 1,000 ml @ 30 mls/hr Q24H IV Last administered on 08/02/16 03:33; Admin Dose 30 MLS/HR; Start 08/02/16 at 03:30 BRYON MICHELLE MD Aug 02, 2016 20:30
[2016-08-02 22:15] VITALS: BP 185/83; PULSE 63
[2016-08-02] MEDS ORDERED: hydrALAzine 20 MG INJ IV PRN (22:30)
[2016-08-03 00:13] VITALS: BP 159/83; PULSE 73
[2016-08-03] MEDS: ACCUCHECK AT 2AM (Patients on SS coverage) XX SCH (02:00)
[2016-08-03] MEDS: DEXTROSE 5%-0.45% NACL 1,000 ML IV SCH (05:42)
[2016-08-03] MEDS: PANTOPRAZOLE (EC) 40 MG TAB PO SCH (05:44)
[2016-08-03] MEDS: FUROSEMIDE 40 MG TAB PO SCH ×2 (05:46→17:21)
[2016-08-03 05:49] LABS: ADD SCAN DIFF NO
[2016-08-03 06:08] LABS: BASOPHILS % 0.3 % (0.0-2.0); EOSINOPHILS # 0.5 10^3/ul (0.0-0.5); EOSINOPHILS % 4.7 % (0.0-7.0); HEMATOCRIT 39.8 % (37.0-47.0); HEMOGLOBIN 12.6 g/dl (12.0-16.0); LYMPHOCYTES # 2.6 10^3/ul (0.8-2.9); LYMPHOCYTES % 26.1 % (15.0-51.0); MEAN CORPUSCULAR HEMOGLOBIN 27.6 pg (29.0-33.0); MEAN CORPUSCULAR HGB CONC 31.7 g/dl (32.0-37.0); MEAN CORPUSCULAR VOLUME 87.1 fl (82.0-101.0); MEAN PLATELET VOLUME 10.1 fl (7.4-10.4); MONOCYTE # 0.7 10^3/ul (0.3-0.9); MONOCYTES % 7.1 % (0.0-11.0); PLATELET COUNT 382 10^3/UL (140-415); RED BLOOD COUNT 4.57 10^6/ul (4.20-5.40); RED CELL DISTRIBUTION WIDTH 18.9 % (11.5-14.5); WHITE BLOOD COUNT 9.8 10^3/ul (4.8-10.8)
[2016-08-03 07:07] VITALS: BP 126/84; RESP 18
[2016-08-03] MEDS: glipiZIDE 10 MG TAB PO SCH ×2 (07:52→17:21)
[2016-08-03] MEDS: INSULIN ASPART [NOVOLOG] 3 ML PEN SC SCH ×4 (08:00→20:40)
[2016-08-03] MEDS: LEVOFLOXACIN 500MG/D5W (PMX) 100 ML IVPB SCH (08:18)
[2016-08-03] MEDS: METOPROLOL 50 MG TAB PO SCH ×2 (08:19→20:36)
[2016-08-03] MEDS: LOSARTAN 50 MG TAB PO SCH ×2 (08:20→20:36)
[2016-08-03] MEDS: ENOXAPARIN 40 MG/0.4 ML SYG SC SCH (08:20)
[2016-08-03] MEDS: ASPIRIN (EC) 81 MG TAB PO SCH (08:20)
[2016-08-03] MEDS ORDERED: LOSARTAN 50 MG TAB PO SCH (09:00)
[2016-08-03] MEDS: HYDROCODONE/APAP (5/325) TAB PO PRN ×2 (12:03→18:48)
[2016-08-03 19:25] VITALS: BP 157/74; RESP 18
[2016-08-03] MEDS: ACETAMINOPHEN 325 MG TAB PO PRN (20:33)
[2016-08-03] MEDS: DOCUSATE SODIUM 250 MG CAP PO SCH (20:35)
--- NOTE | 2016-08-03 21:32 | PN ---
Date/Time of Note Date/Time of Note DATE: 08/03/16 TIME: 21:31 Assessment/Plan VTE Prophylaxis VTE Prophylaxis Intervention: other Lines/Catheters IV Catheter Type (from [facility]): Peripheral IV Urinary Cath still in place: No Assessment/Plan Chief Complaint/Hosp Course IMPRESSION: 1. Right lower extremity cellulitis./BLISTER 2. Acute kidney injury. STABLE 3. Hypertension. 4. History of chronic obstructive pulmonary disease. 5. Atherosclerotic heart disease. 6. The patient has diabetes mellitus 7 BLISTER+ [facility]AN [facility]TIBIOT[facility] dr villalba to see called Problems: Subjective 24 Hr Interval Summary Musculoskeletal: no complaints Skin: skin lesions (+) Exam/Review of Systems Vital Signs Vitals Vital Signs Date Time Temp Pulse Resp B/P Pulse Ox O2 Delivery O2 Flow Rate FiO2 08/03/16 19:25 98.1 71 18 157/74 94 07/31/16 20:00 Nasal Cannula 2.0 Intake and Output 08/02/16 08/02/16 08/03/16 15:00 23:00 07:00 Intake Total 1810 ml 1150 ml Output Total 3 ml 3 ml Balance 1807 ml 1147 ml Exam Respiratory: clear to auscultation Cardiovascular: regular rate and rhythm Gastrointestinal: soft Musculoskeletal: nl extremities to inspection Extremities: edema (+) Results Result Diagram: 08/03/16 0425 08/02/16 0425 Results 24 hrs Laboratory Tests Test 08/03/16 04:25 08/03/16 07:37 08/03/16 12:00 08/03/16 17:16 Basophils # 0.0 Basophils % 0.3 Eosinophils # 0.5 Eosinophils % 4.7 Hematocrit 39.8 Hemoglobin 12.6 Lymphocytes # 2.6 Lymphocytes % 26.1 Mean Corpuscular Hemoglobin 27.6 L Mean Corpuscular Hemoglobin Concent 31.7 L Mean Corpuscular Volume 87.1 Mean Platelet Volume 10.1 Monocytes # 0.7 Monocytes % 7.1 Neutrophils # 6.0 Neutrophils % 61.0 Nucleated Red Blood Cells # 0.0 Nucleated Red Blood Cells % 0.0 Platelet Count 382 Red Blood Count 4.57 Red Cell Distribution Width 18.9 H White Blood Count 9.8 # Bedside Glucose 125 93 106 Test 08/03/16 20:39 Bedside Glucose 96 Medications Medications Current Medications Albuterol (Ventolin Hfa) 2 puff Q4H PRN INH WHEEZING AND SOB; Start 07/30/16 at 20:30 Aspirin (Halfprin) 81 mg DAILY PO Last administered on 08/03/16 08:20; Admin Dose 81 MG; Start 07/31/16 at 09:00 Furosemide (Lasix) 40 mg BID@,18 PO Last administered on 08/03/16 17:21; Admin Dose 40 MG; Start 07/30/16 at 21:00 Metoprolol Tartrate (Lopressor) 50 mg BID PO Last administered on 08/03/16 20: 36; Admin Dose 50 MG; Start 07/30/16 at 21:00 Miscellaneous Information 1 ea NOTE XX ; Start 07/30/16 at 20:30 Glucose (Glutose) 15 gm Q15M PRN PO DECREASED GLUCOSE Last administered on 08/02 02:06; Admin Dose 15 GM; Start 07/30/16 at 20:30 Glucose (Glutose) 22.5 gm Q15M PRN PO DECREASED GLUCOSE; Start 07/30/16 at 20: 30 Dextrose (D50w Syringe) 25 ml Q15M PRN IV DECREASED GLUCOSE Last administered on 08/02/16 03:01; Admin Dose 25 ML; Start 07/30/16 at 20:30 Dextrose (D50w Syringe) 50 ml Q15M PRN IV DECREASED GLUCOSE; Start 07/30/16 at 20:30 Glucagon (Glucagen) 1 mg Q15M PRN IM DECREASED GLUCOSE; Start 07/30/16 at 20:30 Glucose (Glutose) 15 gm Q15M PRN BUCCAL DECREASED GLUCOSE; Start 07/30/16 at 20 :30 Ondansetron HCl (Zofran Inj) 4 mg Q6H PRN IV NAUSEA AND/OR VOMITING; Start at 23:00 Acetaminophen (Tylenol Tab) 650 mg Q6H PRN PO PAIN LEVEL 1-3 OR FEVER Last administered on 08/03/16 20:33; Admin Dose 650 MG; Start 07/30/16 at 23:00 Acetaminophen/ Hydrocodone Bitart ([place] (5/325)) 1 tab Q6H PRN PO MODERATE PAIN LEVEL 4-6 Last administered on 08/03/16 18:48; Admin Dose 1 TAB; Start at 23:00 Enoxaparin Sodium 40 mg 40 mg DAILY SC Last administered on 08/03/16 08:20; Admin Dose 40 MG; Start 07/31/16 at 09:00 Levofloxacin/ Dextrose (Levaquin 500mg/ D5W 100 ml (Pmx)) 100 ml @ 100 mls/hr DAILY IVPB Last administered on 08/03/16 08:18; Admin Dose 100 MLS/HR; Start 07/31/16 at 09:00 Diagnostic Test (Pha) (Accucheck) 1 ea 02 XX ; Start 07/31/16 at 02:00 Pantoprazole 40 mg 40 mg DAILY@06 PO Last administered on 08/03/16 05:44; Admin Dose 40 MG; Start 08/01/16 at 06:00 Dextrose/Sodium Chloride (D5-1/2ns) 1,000 ml @ 30 mls/hr Q24H IV Last administered on 08/03/16 05:42; Admin Dose 30 MLS/HR; Start 08/02/16 at 03:30 Hydralazine HCl (Apresoline) 10 mg Q6H PRN IV for SBP >170 Last administered on 08/02/16 22:36; Admin Dose 10 MG; Start 08/02/16 at 22:30 Hydralazine HCl (Apresoline) 25 mg TID PO Last administered on 08/03/16 20:34 ; Admin Dose 25 MG; Start 08/03/16 at 09:00 Losartan Potassium (Cozaar) 50 mg BID PO Last administered on 08/03/16 20:36; Admin Dose 50 MG; Start 08/03/16 at 09:00 Docusate Sodium (Colace) 250 mg BID PO Last administered on 08/03/16 20:35; Admin Dose 250 MG; Start 08/03/16 at 21:00 BRYON MICHELLE MD Aug 03, 2016 21:32
[2016-08-04] MEDS: ACCUCHECK AT 2AM (Patients on SS coverage) XX SCH (02:00)
[2016-08-04] MEDS: HYDROCODONE/APAP (5/325) TAB PO PRN ×2 (03:12→20:00)
[2016-08-04] MEDS: PANTOPRAZOLE (EC) 40 MG TAB PO SCH (05:38)
[2016-08-04] MEDS: FUROSEMIDE 40 MG TAB PO SCH ×2 (05:38→17:02)
[2016-08-04 06:14] LABS: ADD SCAN DIFF NO
[2016-08-04 06:17] LABS: BASOPHILS % 0.2 % (0.0-2.0); EOSINOPHILS # 0.5 10^3/ul (0.0-0.5); EOSINOPHILS % 5.1 % (0.0-7.0); HEMATOCRIT 40.9 % (37.0-47.0); LYMPHOCYTES # 2.3 10^3/ul (0.8-2.9); LYMPHOCYTES % 23.1 % (15.0-51.0); MEAN CORPUSCULAR HEMOGLOBIN 27.6 pg (29.0-33.0); MEAN CORPUSCULAR HGB CONC 31.8 g/dl (32.0-37.0); MEAN CORPUSCULAR VOLUME 86.8 fl (82.0-101.0); MONOCYTE # 0.7 10^3/ul (0.3-0.9); MONOCYTES % 6.8 % (0.0-11.0); NEUTROPHIL # 6.3 10^3/ul (1.6-7.5); PLATELET COUNT 385 10^3/UL (140-415); RED BLOOD COUNT 4.71 10^6/ul (4.20-5.40); WHITE BLOOD COUNT 9.9 10^3/ul (4.8-10.8)
[2016-08-04] MEDS: DEXTROSE 5%-0.45% NACL 1,000 ML IV SCH (06:43)
[2016-08-04] MEDS: INSULIN ASPART [NOVOLOG] 3 ML PEN SC SCH ×4 (08:00→21:00)
[2016-08-04 08:13] VITALS: BP 148/83; RESP 20
[2016-08-04] MEDS: DOCUSATE SODIUM 250 MG CAP PO SCH ×2 (08:32→20:05)
[2016-08-04] MEDS: ASPIRIN (EC) 81 MG TAB PO SCH (08:32)
[2016-08-04] MEDS: glipiZIDE 10 MG TAB PO SCH ×2 (08:33→17:02)
[2016-08-04] MEDS: LOSARTAN 50 MG TAB PO SCH ×2 (08:34→20:06)
[2016-08-04] MEDS: METOPROLOL 50 MG TAB PO SCH ×2 (08:34→20:06)
[2016-08-04] MEDS: LEVOFLOXACIN 500MG/D5W (PMX) 100 ML IVPB SCH (08:39)
[2016-08-04] MEDS: ENOXAPARIN 40 MG/0.4 ML SYG SC SCH (08:39)
[2016-08-04 09:42] LABS: POTASSIUM 4.7 mmol/L (3.5-5.1)
[2016-08-04 09:45] LABS: CREATININE 1.6 mg/dl (0.44-1.00)
[2016-08-04 09:46] LABS: CALCIUM 9.6 mg/dl (8.4-10.2)
--- NOTE | 2016-08-04 12:31 | PN ---
Date/Time of Note Date/Time of Note DATE: 08/04/16 TIME: 12:30 Assessment/Plan VTE Prophylaxis VTE Prophylaxis Intervention: other Lines/Catheters IV [facility] Type (from [facility]): Peripheral IV Urinary Cath still in place: No Assessment/Plan Chief Complaint/Hosp Course IMPRESSION: 1. Right lower extremity cellulitis./BLISTER 2. Acute kidney injury. STABLE 3. Hypertension. 4. History of chronic obstructive pulmonary disease. 5. Atherosclerotic heart disease. 6. The patient has diabetes mellitus 7 BLISTER+ PLAN [facility]OUND [facility] ANTIBIOTIC dr villalba to see called DR MENDOZA CALLED Problems: Subjective 24 Hr Interval Summary Skin: skin lesions (+) Exam/Review of Systems Vital Signs Vitals Vital Signs Date Time Temp Pulse Resp B/P Pulse Ox O2 Delivery O2 Flow Rate FiO2 08/04/16 08:13 98.8 88 20 148/83 96 07/31/16 20:00 Nasal Cannula 2.0 Intake and Output 08/03/16 08/03/16 08/04/16 15:00 23:00 07:00 Intake Total 100 ml 790 ml 480 ml Balance 100 ml 790 ml 480 ml Exam Neck: supple Respiratory: clear to auscultation Cardiovascular: regular rate and rhythm Gastrointestinal: soft Musculoskeletal: nl extremities to inspection Extremities: normal pulses Results Result Diagram: 08/04/16 0540 08/04/16 0540 Results 24 hrs Laboratory Tests Test 08/03/16 17:16 08/03/16 20:39 08/04/16 02:47 08/04/16 03:14 Bedside Glucose 106 96 77 112 Test 08/04/16 05:40 08/04/16 07:33 08/04/16 11:54 Anion Gap 17 H Basophils # 0.0 Basophils % 0.2 Blood Urea Nitrogen 33 H Calcium Level 9.6 Carbon Dioxide Level 31 Chloride Level 95 L Creatinine 1.60 H Eosinophils # 0.5 Eosinophils % 5.1 Glucose Level 106 Hematocrit 40.9 Hemoglobin 13.0 Lymphocytes # 2.3 Lymphocytes % 23.1 Mean Corpuscular Hemoglobin 27.6 L Mean Corpuscular Hemoglobin Concent 31.8 L Mean Corpuscular Volume 86.8 Mean Platelet Volume 10.0 Monocytes # 0.7 Monocytes % 6.8 Neutrophils # 6.3 Neutrophils % 64.0 Nucleated Red Blood Cells # 0.0 Nucleated Red Blood Cells % 0.0 Platelet Count 385 Potassium Level 4.7 Red Blood Count 4.71 Red Cell Distribution Width 19.0 H Sodium Level 138 White Blood Count 9.9 Bedside Glucose 97 75 Medications Medications Current Medications Albuterol (Ventolin Hfa) 2 puff Q4H PRN INH WHEEZING AND SOB; Start 07/30/16 at 20:30 Aspirin (Halfprin) 81 mg DAILY PO Last administered on 08/04/16 08:32; Admin Dose 81 MG; Start 07/31/16 at 09:00 Furosemide (Lasix) 40 mg BID@06,18 PO Last administered on 08/04/16 05:38; Admin Dose 40 MG; Start 07/30/16 at 21:00 Metoprolol Tartrate (Lopressor) 50 mg BID PO Last administered on 08/04/16 08: 34; Admin Dose 50 MG; Start 07/30/16 at 21:00 Miscellaneous Information 1 ea NOTE XX ; Start 07/30/16 at 20:30 Glucose (Glutose) 15 gm Q15M PRN PO DECREASED GLUCOSE Last administered on 08/02 02:06; Admin Dose 15 GM; Start 07/30/16 at 20:30 Glucose (Glutose) 22.5 gm Q15M PRN PO DECREASED GLUCOSE; Start 07/30/16 at 20: 30 Dextrose (D50w Syringe) 25 ml Q15M PRN IV DECREASED GLUCOSE Last administered on 08/02/16 03:01; Admin Dose 25 ML; Start 07/30/16 at 20:30 Dextrose (D50w Syringe) 50 ml Q15M PRN IV DECREASED GLUCOSE; Start 07/30/16 at 20:30 Glucagon (Glucagen) 1 mg Q15M PRN IM DECREASED GLUCOSE; Start 07/30/16 at 20:30 Glucose (Glutose) 15 gm Q15M PRN BUCCAL DECREASED GLUCOSE; Start 07/30/16 at 20 :30 Ondansetron HCl (Zofran Inj) 4 mg Q6H PRN IV NAUSEA AND/OR VOMITING; Start at 23:00 Acetaminophen (Tylenol Tab) 650 mg Q6H PRN PO PAIN LEVEL 1-3 OR FEVER Last administered on 08/03/16 20:33; Admin Dose 650 MG; Start 07/30/16 at 23:00 Acetaminophen/ Hydrocodone Bitart ([place] (5/325)) 1 tab Q6H PRN PO MODERATE PAIN LEVEL 4-6 Last administered on 08/04/16 03:12; Admin Dose 1 TAB; Start at 23:00 Enoxaparin Sodium 40 mg 40 mg DAILY SC Last administered on 08/03/16 08:20; Admin Dose 40 MG; Start 07/31/16 at 09:00 Levofloxacin/ Dextrose (Levaquin 500mg/ D5W 100 ml (Pmx)) 100 ml @ 100 mls/hr DAILY IVPB Last administered on 08/04/16 08:39; Admin Dose 100 MLS/HR; Start 07/31/16 at 09:00 Diagnostic Test (Pha) (Accucheck) 1 ea 02 XX ; Start 07/31/16 at 02:00 Pantoprazole 40 mg 40 mg DAILY@06 PO Last administered on 08/04/16 05:38; Admin Dose 40 MG; Start 08/01/16 at 06:00 Dextrose/Sodium Chloride (D5-1/2ns) 1,000 ml @ 30 mls/hr Q24H IV Last administered on 08/04/16 06:43; Admin Dose 30 MLS/HR; Start 08/02/16 at 03:30 Hydralazine HCl (Apresoline) 10 mg Q6H PRN IV for SBP >170 Last administered on 08/02/16 22:36; Admin Dose 10 MG; Start 08/02/16 at 22:30 Hydralazine HCl (Apresoline) 25 mg TID PO Last administered on 08/04/16 12:09 ; Admin Dose 25 MG; Start 08/03/16 at 09:00 Losartan Potassium (Cozaar) 50 mg BID PO Last administered on 08/04/16 08:34; Admin Dose 50 MG; Start 08/03/16 at 09:00 Docusate Sodium (Colace) 250 mg BID PO Last administered on 08/04/16 08:32; Admin Dose 250 MG; Start 08/03/16 at 21:00 BRYON MICHELLE MD Aug 04, 2016 12:31
[2016-08-04] MEDS ORDERED: LIDOCAINE 1% (MDV) 20 ML INJ ONE (19:04)
[2016-08-04] MEDS ORDERED: LIDOCAINE 1%/EPI (MDV) 20 ML INJ INJ ONE (19:30)
[2016-08-04 21:10] VITALS: BP 192/93; RESP 20
[2016-08-04] MEDS: CLINDAMYCIN 900 MG/D5W (PMX) 50 ML IVPB SCH (22:04)
[2016-08-05] MEDS: ACCUCHECK AT 2AM (Patients on SS coverage) XX SCH (02:00)
[2016-08-05 02:15] VITALS: BP 147/73; PULSE 62
[2016-08-05] MEDS: HYDROCODONE/APAP (5/325) TAB PO PRN ×3 (02:18→16:58)
[2016-08-05] MEDS: PANTOPRAZOLE (EC) 40 MG TAB PO SCH (05:05)
[2016-08-05] MEDS: FUROSEMIDE 40 MG TAB PO SCH ×2 (05:05→17:00)
[2016-08-05] MEDS: INSULIN ASPART [NOVOLOG] 3 ML PEN SC SCH ×4 (08:00→20:41)
[2016-08-05] MEDS: ENOXAPARIN 40 MG/0.4 ML SYG SC SCH (08:29)
[2016-08-05] MEDS: DOCUSATE SODIUM 250 MG CAP PO SCH ×2 (08:29→20:37)
[2016-08-05] MEDS: glipiZIDE 10 MG TAB PO SCH ×2 (08:29→16:58)
[2016-08-05] MEDS: ASPIRIN (EC) 81 MG TAB PO SCH (08:29)
[2016-08-05] MEDS: LOSARTAN 50 MG TAB PO SCH ×2 (08:30→20:37)
[2016-08-05] MEDS: METOPROLOL 50 MG TAB PO SCH ×2 (08:36→20:38)
[2016-08-05 08:53] VITALS: BP 131/70; RESP 20
[2016-08-05] MEDS: CLINDAMYCIN 900 MG/D5W (PMX) 50 ML IVPB SCH ×3 (09:40→22:04)
[2016-08-05] MEDS: SODIUM HYPOCHLORITE 0.125% 473 ML BTL IRR SCH (10:38)
--- NOTE | 2016-08-05 13:32 | PN ---
Date/Time of Note Date/Time of Note DATE: 08/05/16 TIME: 13:30 Assessment/Plan VTE Prophylaxis VTE Prophylaxis Intervention: other Lines/Catheters IV C[facility]ter Type (from [facility]): Peripheral IV Urinary Cath still in place: No Assessment/Plan Chief Complaint/Hosp Course IMPRESSION: 1. Right lower extremity cellulitis./BLISTER s/p i and d 2. Acute kidney injury. STABLE 3. Hypertension. 4. History of chronic obstructive pulmonary disease. 5. Atherosclerotic heart disease. 6. The patient has diabetes mellitus 7 BLISTER+ PLAN WOUND CARE ANTIBIOTIC per dr deejay MENDOZA CALLED Problems: Subjective 24 Hr Interval Summary Gastrointestinal: no complaints Musculoskeletal: no complaints Exam/Review of Systems Vital Signs Vitals Vital Signs Date Time Temp Pulse Resp B/P Pulse Ox O2 Delivery O2 Flow Rate FiO2 08/05/16 08:53 98.2 66 20 131/70 93 Intake and Output 08/04/16 08/04/16 08/05/16 15:00 23:00 07:00 Intake Total 430 ml 1200 ml 1940 ml Balance 430 ml 1200 ml 1940 ml Exam Neck: supple Respiratory: clear to auscultation Cardiovascular: regular rate and rhythm Extremities: edema (leg wound +) Results Result Diagram: 08/04/16 0540 08/04/16 0540 Results 24 hrs Laboratory Tests Test 08/04/16 16:49 08/04/16 20:03 08/05/16 07:33 08/05/16 11:51 Bedside Glucose 101 123 103 105 Medications Medications Current Medications Albuterol (Ventolin Hfa) 2 puff Q4H PRN INH WHEEZING AND SOB; Start 07/30/16 at 20:30 Aspirin (Halfprin) 81 mg DAILY PO Last administered on 08/05/16 08:29; Admin Dose 81 MG; Start 07/31/16 at 09:00 Furosemide (Lasix) 40 mg BID@06,18 PO Last administered on 08/05/16 05:05; Admin Dose 40 MG; Start 07/30/16 at 21:00 Metoprolol Tartrate (Lopressor) 50 mg BID PO Last administered on 08/05/16 08: 36; Admin Dose 50 MG; Start 07/30/16 at 21:00 Miscellaneous Information 1 ea NOTE XX ; Start 07/30/16 at 20:30 Glucose (Glutose) 15 gm Q15M PRN PO DECREASED GLUCOSE Last administered on 08/02 02:06; Admin Dose 15 GM; Start 07/30/16 at 20:30 Glucose (Glutose) 22.5 gm Q15M PRN PO DECREASED GLUCOSE; Start 07/30/16 at 20: 30 Dextrose (D50w Syringe) 25 ml Q15M PRN IV DECREASED GLUCOSE Last administered on 08/02/16 03:01; Admin Dose 25 ML; Start 07/30/16 at 20:30 Dextrose (D50w Syringe) 50 ml Q15M PRN IV DECREASED GLUCOSE; Start 07/30/16 at 20:30 Glucagon (Glucagen) 1 mg Q15M PRN IM DECREASED GLUCOSE; Start 07/30/16 at 20:30 Glucose (Glutose) 15 gm Q15M PRN BUCCAL DECREASED GLUCOSE; Start 07/30/16 at 20 :30 Ondansetron HCl (Zofran Inj) 4 mg Q6H PRN IV NAUSEA AND/OR VOMITING; Start at 23:00 Acetaminophen (Tylenol Tab) 650 mg Q6H PRN PO PAIN LEVEL 1-3 OR FEVER Last administered on 08/03/16 20:33; Admin Dose 650 MG; Start 07/30/16 at 23:00 Acetaminophen/ Hydrocodone Bitart ([place] (5/325)) 1 tab Q6H PRN PO MODERATE PAIN LEVEL 4-6 Last administered on 08/05/16 10:48; Admin Dose 1 TAB; Start at 23:00 Enoxaparin Sodium (Lovenox) 40 mg DAILY SC Last administered on 08/05/16 08:29 ; Admin Dose 40 MG; Start 07/31/16 at 09:00 Diagnostic Test (Pha) (Accucheck) 1 ea 02 XX ; Start 07/31/16 at 02:00 Pantoprazole 40 mg 40 mg DAILY@06 PO Last administered on 08/05/16 05:05; Admin Dose 40 MG; Start 08/01/16 at 06:00 Dextrose/Sodium Chloride (D5-1/2ns) 1,000 ml @ 30 mls/hr Q24H IV Last administered on 08/04/16 06:43; Admin Dose 30 MLS/HR; Start 08/02/16 at 03:30 Hydralazine HCl (Apresoline) 10 mg Q6H PRN IV for SBP >170 Last administered on 08/02/16 22:36; Admin Dose 10 MG; Start 08/02/16 at 22:30 Hydralazine HCl (Apresoline) 25 mg TID PO Last administered on 08/05/16 13:18 ; Admin Dose 25 MG; Start 08/03/16 at 09:00 Losartan Potassium (Cozaar) 50 mg BID PO Last administered on 08/05/16 08:30; Admin Dose 50 MG; Start 08/03/16 at 09:00 Docusate Sodium 250 mg 250 mg BID PO Last administered on 08/05/16 08:29; Admin Dose 250 MG; Start 08/03/16 at 21:00 Clindamycin HCl/ Dextrose (Cleocin 900 Mg/ D5W (Pmx)) 50 ml @ 50 mls/hr Q8 IVPB Last administered on 08/05/16 09:40; Admin Dose 50 MLS/HR; Start 08/04/16 at 22:00 Sodium Hypochlorite (Dakin'S (1/4 Strength)) 1 applic DAILY IRR Last administered on 08/05/16 10:38; Admin Dose 1 APPLIC; Start 08/05/16 at 10:30 BRYON MICHELLE MD Aug 05, 2016 13:32
--- NOTE | 2016-08-05 16:52 | PN ---
Date/Time of Note Date/Time of Note DATE: 08/03/16 TIME: 16:46 Assessment/Plan Lines/Catheters IV Catheter Type (from [facility]): Peripheral IV Abbott in Place (from [facility]): No Assessment/Plan Chief Complaint/Hosp Course 1. Right lower extremity cellulitis with probable abscess -Antibiotics -Will consider I&D if is not improving 2. Possible peripheral vascular disease -Will need vascular outpatient follow-up -Encourage medical optimization 3. Morbid obesity with BMI of 38 -Nutrition optimization -Exercise optimization 4. Diabetes mellitus -Diet and medication control -Weight optimization encouraged 5. Hypertension -Diet and medication control -Weight optimization encouraged 6. Acute kidney injury -Judicious fluid management -Avoid nephrotoxic agents 7. Atherosclerotic heart disease -Medical optimization as above -Cardiac optimization Fluid removed that Thank you, Late entry 08/03 Dictation #: [id number] Problems: Subjective 24 Hr Interval Summary Minimal pain right lower extremity. No fevers or chills. No chest pain or shortness of breath. No visual or neurologic changes. No dysuria. No abdominal pain. Bowel function. Exam/Review of Systems Vital Signs Vitals Vital Signs Date Time Temp Pulse Resp B/P Pulse Ox O2 Delivery O2 Flow Rate FiO2 08/05/16 08:53 98.2 66 20 131/70 93 Intake and Output 08/04/16 08/04/16 08/05/16 15:00 23:00 07:00 Intake Total 430 ml 1200 ml 1940 ml Balance 430 ml 1200 ml 1940 ml Exam Constitutional: alert, obese, oriented, No distress Psych: nl mood/affect, No anxiety Head: atraumatic, normocephalic Eyes: EOMI, PERRL, nl conjunctiva, No icteric ENMT: mucosa pink and moist, nl external ears & nose, nl lips & teeth Neck: jvd (min), non-tender, supple Respiratory: normal air movement, No congested cough, No labored breathing Cardiovascular: edema (RLE), regular rate and rhythm Gastrointestinal: non-tender, soft, No rebound or guarding Musculoskeletal: No nl extremities to inspection (RLE with erythema, edema, tenderness, fluctuance/induration) Extremities: No calf tenderness, No normal pulses Neurological: nl mental status, nl speech, nl strength Skin: nl turgor, rash or lesions (RLE erythema as above), No diaphoresis Lymph: nl lymph nodes Results Result Diagram: 08/04/16 0540 08/04/16 0540 GWENDOLYN KAMARA MD Aug 05, 2016 16:52
--- NOTE | 2016-08-05 16:54 | PN ---
Date/Time of Note Date/Time of Note DATE: 08/05/16 TIME: 16:53 Assessment/Plan Lines/Catheters IV Catheter Type (from [facility]): Peripheral IV Abbott in Place (from [facility]): No Assessment/Plan Chief Complaint/Hosp Course 1. Right lower extremity cellulitis with probable abscess -Antibiotics -I&D today 2. Possible peripheral vascular disease -Will need vascular outpatient follow-up -Encourage medical optimization 3. Morbid obesity with BMI of 38 -Nutrition optimization -Exercise optimization 4. Diabetes mellitus -Diet and medication control -Weight optimization encouraged 5. Hypertension -Diet and medication control -Weight optimization encouraged 6. Acute kidney injury -Judicious fluid management -Avoid nephrotoxic agents 7. Atherosclerotic heart disease -Medical optimization as above -Cardiac optimization Fluid removed that Thank you, Late entry 08/04 Problems: Subjective 24 Hr Interval Summary Minimal pain right lower extremity. No fevers or chills. No chest pain or shortness of breath. No visual or neurologic changes. No dysuria. No abdominal pain. Bowel function. Exam/Review of Systems Vital Signs Vitals Vital Signs Date Time Temp Pulse Resp B/P Pulse Ox O2 Delivery O2 Flow Rate FiO2 08/05/16 08:53 98.2 66 20 131/70 93 Intake and Output 08/04/16 08/04/16 08/05/16 15:00 23:00 07:00 Intake Total 430 ml 1200 ml 1940 ml Balance 430 ml 1200 ml 1940 ml Exam Free Text/Dictation Constitutional: alert, obese, oriented, No distress Psych: nl mood/affect, No anxiety Head: atraumatic, normocephalic Eyes: EOMI, PERRL, nl conjunctiva, No icteric ENMT: mucosa pink and moist, nl external ears & nose, nl lips & teeth Neck: jvd (min), non-tender, supple Respiratory: normal air movement, No congested cough, No labored breathing Cardiovascular: edema (RLE), regular rate and rhythm Gastrointestinal: non-tender, soft, No rebound or guarding Musculoskeletal: No nl extremities to inspection (RLE with erythema, edema, tenderness, fluctuance/induration) Extremities: No calf tenderness, No normal pulses Neurological: nl mental status, nl speech, nl strength Skin: nl turgor, rash or lesions (RLE erythema as above), No diaphoresis Lymph: nl lymph nodes Results Result Diagram: 08/04/16 0540 08/04/16 0540 GWENDOLYN KAMARA MD Aug 05, 2016 16:54
--- NOTE | 2016-08-05 16:56 | OPR ---
Date/Time of Note Date/Time of Note DATE: 08/05/16 TIME: 16:54 Operative Report Procedure Date: Aug 04, 2016 Preoperative Diagnosis Right lower extremity abscess Postoperative Diagnosis Same Operation Performed 1. Incision and drainage of right lower extremity abscess 2. Local anesthetic [place], [id number] Surgeon: GWENDOLYN KAMARA MD Anesthesia: other (local) Estimated Blood Loss: 0 - 10 ml's Specimens Culture Tubes/Drains 4 x 4 packing Complications: None Pt Condition Post Procedure: stable Disposition: other (on room) Indications Per notes Risks, benefits, alternatives as usual and customary. Because of her diabetes and possible peripheral vascular disease she is at high risk of chronic wound and nonhealing and worsening infection and spread of infection. Patient fully understands Marylou proceed with surgery Procedure Description Patient was placed supine on her bed, area was prepped and draped sterilely. Timeout was performed. She is artery antibiotics. Local anesthetic was injected at the incision site. Incision was made vertically into the abscess and pus was drained and culture was sent. Wound was irrigated and packed with 4 x 4. Dry gauze was applied. GWENDOLYN KAMARA MD Aug 05, 2016 16:56
[2016-08-05] MEDS: DEXTROSE 5%-0.45% NACL 1,000 ML IV SCH (16:58)
--- NOTE | 2016-08-05 16:59 | PN ---
Date/Time of Note Date/Time of Note DATE: 08/05/16 TIME: 16:56 Assessment/Plan Lines/Catheters IV Catheter Type (from [facility]): Peripheral IV Abbott in Place (from [facility]): No Assessment/Plan Chief Complaint/Hosp Course 1. Right lower extremity cellulitis with abscess status post incision and drainage to/25 -Antibiotics -Local wound care -Nutrition optimization -Vitamin C -Debridement when necessary -Outpatient vascular evaluation and the wound clinic 2. Possible peripheral vascular disease -Will need vascular outpatient follow-up -Encourage medical optimization 3. Morbid obesity with BMI of 38 -Nutrition optimization -Exercise optimization 4. Diabetes mellitus -Diet and medication control -Weight optimization encouraged 5. Hypertension -Diet and medication control -Weight optimization encouraged 6. Acute kidney injury -Judicious fluid management -Avoid nephrotoxic agents 7. Atherosclerotic heart disease -Medical optimization as above -Cardiac optimization Thank you, Problems: Subjective 24 Hr Interval Summary Pain improved on right lower extremity. No fevers or chills. No nausea or vomiting. No chest pain or shortness of breath. No visual or neurologic changes. No dysuria. Positive bowel function. No headache. No seizure. Exam/Review of Systems Vital Signs Vitals Vital Signs Date Time Temp Pulse Resp B/P Pulse Ox O2 Delivery O2 Flow Rate FiO2 08/05/16 08:53 98.2 66 20 131/70 93 Intake and Output 08/04/16 08/04/16 08/05/16 15:00 23:00 07:00 Intake Total 430 ml 1200 ml 1940 ml Balance 430 ml 1200 ml 1940 ml Exam Free Text/Dictation Constitutional: alert, obese, oriented, No distress Psych: nl mood/affect, No anxiety Head: atraumatic, normocephalic Eyes: EOMI, PERRL, nl conjunctiva, No icteric ENMT: mucosa pink and moist, nl external ears & nose, nl lips & teeth Neck: jvd (min), non-tender, supple Respiratory: normal air movement, No congested cough, No labored breathing Cardiovascular: edema (RLE), regular rate and rhythm Gastrointestinal: non-tender, soft, No rebound or guarding Musculoskeletal: No nl extremities to inspection (RLE wound with packing) Extremities: No calf tenderness, No normal pulses Neurological: nl mental status, nl speech, nl strength Skin: nl turgor, rash or lesions (RLE erythema improved), No diaphoresis Lymph: nl lymph nodes Results Result Diagram: 08/04/16 0540 08/04/16 0540 GWENDOLYN KAMARA MD Aug 05, 2016 16:59
--- NOTE | 2016-08-05 19:07 | CONS ---
DATE OF ADMISSION: 07/30/2016 DATE OF CONSULTATION: 08/02/2016 TYPE OF CONSULTATION: Surgical. REFERRING PHYSICIAN: Daniel Hernandez MD CHIEF COMPLAINT: 1. Right lower extremity infection with possible abscess. 2. BMI 38. HISTORY OF PRESENT ILLNESS: Ms. Chari Miles is a 50-year-old female with multiple comorbidities who presented to the hospital with right lower extremity redness, swelling and pain for several day s without evident injury to the site. She denies any fevers or chills. No chest pain, no shortness of breath. No cough, no seizures. No blood per mouth or rectum. No dysuria or vaginal discharge. No trauma. PAST MEDICAL HISTORY: 1. Obesity. 2. History of hypoxemic, hypercapnic respiratory failure. 3. Congestive heart failure. 4. Renal insufficiency. 5. Obstructive sleep apnea. 6. Hypoventilation syndrome. 7. Dyslipidemia. 8. Atherosclerotic cardiac disease. 9. Right lower extremity cellulitis with possible abscess. 10. Possible peripheral vascular disease. 11. Hypertension. 12. Leukocytosis. 13. Diabetes. 14. Asthma. 15. High cholesterol. PAST SURGICAL HISTORY: C-sections x4. FAMILY HISTORY: Noncontributory. REVIEW OF SYSTEMS: A 12-point of review of systems negative unless addressed in HPI. PHYSICAL EXAMINATION: VITAL SIGNS: Temperature 98.1, pulse 71, blood pressure 157/74, saturating 94%. GENERAL: No acute distress. Morbidly obese. HEENT: Pupils equal, reactive. No scleral icterus. Mucous membranes somewhat dry. NECK: No crepitus. Minimal JVD. PULMONARY: Normal respiratory effort. No wheezing. CARDIAC: S1 and S2 present. ABDOMEN: Soft, obese, nontender. EXTREMITIES: Right lower extremity with edema, erythema, tenderness and swelling. VASCULAR: Capillary refill is about 3 seconds. NEUROLOGIC: Alert, oriented, moves all 4 extremities grossly. LABORATORY AND RADIOGRAPHIC: As per chart and HPI. ASSESSMENT AND PLAN: Ms. Chari Miles is a 50-year-old female with multiple significant comorbid ities. 1. Right lower extremity cellulitis with probable abscess. Antibiotics. Will consider I and D if it's not improving. 2. Possible peripheral vascular disease. Will need vascular outpatient followup. Encourage medica l optimization. 3. Morbid obesity with body mass index of 38. Nutrition optimization. Exercise optimization. 4. Diabetes mellitus. Diet and medication control. Weight optimization encouraged. 5. Hypertension. Diet and medication control. Weight optimization encouraged. 6. Acute kidney injury. Judicious fluid management. Avoid nephrotoxic agents. 7. Atherosclerotic heart disease. Medical optimization as above. Cardiac optimization. Thank you very much for consulting me in this patient's care. Dictated By: GWENDOLYN MILLER/RATNA Conf#: [id number] DID#: [id number]
--- NOTE | 2016-08-05 19:42 | CONS ---
Date/Time of Note Date/Time of Note DATE: 08/05/16 TIME: 19:13 Assessment/Plan Assessment/Plan Chief Complaint/Hosp Course ID PROGRESS NOTE TOTAL ABX DAY # 7 => Clindamycin IV #7 s/p Levaquin 07/30 - 08/04 = #6 days 24H INTERVAL SUMMARY * A/A/O -- afebrile, VSS * POD #1 -> s/p Procedure Date: Aug 04, 2016 Preoperative Diagnosis Right lower extremity abscess Postoperative Diagnosis Same Operation Performed 1. Incision and drainage of right lower extremity abscess. QUOTING: ".Incision was made vertically into the abscess and pus was drained and culture was sent" * Susan: 08/04/16 Rcvd: 08/04/16 Source: RIGHT LEG Sp Descrip: Microbiology GRAM STAIN Final POLYMORPH. LEUKOCYTE RARE . NO ORGANISM SEEN WOUND CULTURE Preliminary No growth after 1 day Physical Exam Const: A/A/O -> VSS, no fevers, NAD HEENT: Unremarkable Neck: Full range of motion. Resp: Clear to auscultation bilaterally. Cardio: Pulse RRR Abd: Soft, non distended Skin: No petechiae or rashes. Ext: Right lower extremity erythema w/edema and blisters Neur: Awake and alert. No focal deficit Psych: Normal Mood and Affect. ID ASSESSMENT: 50 yo obese F admit with: 1. Acute Right lower extremity cellulitis with abscess. ' POD #1 -> s/p Procedure Date: Aug 04, 2016 * Preoperative Diagnosis Right lower extremity abscess Postoperative Diagnosis Same * Operation Performed 1. Incision and drainage of right lower extremity abscess. QUOTING: ".Incision was made vertically into the abscess and pus was drained and culture was sent" * Susan: 08/04/16 Rcvd: 08/04/16 Source: RIGHT LEG Sp Descrip: Microbiology GRAM STAIN Final = POLYMORPH. LEUKOCYTE RARE/NO ORGANISM SEEN WOUND CULTURE Preliminary No growth after 1 day 2. SIRS w/leukocytosis on admission, VSS, NO FEVERS/Chills 3. DMT2 w/complication of DM peripheral neuropathy 4. CKD 5. PULMONARY ISSUES: History of hypoxemic, hypercapnic respiratory failure. * COPD-Asthma-> Stable * Obstructive sleep apnea. * Obesity Hypoventilation syndrome. 6. CV ISSUES. * Essential HTN * HLD * Hx of Atherosclerotic cardiac disease. * Hx of Congestive heart failure. * BLEXT Venous stasis = obesity related venous insufficiency * Probable peripheral vascular/arterial disease. 7. PSHx: x4; Tubal Ligation ( ? )MRSA Nares => Screening ordered for tonight INVASIVES: *PIV ABX ALLERGIES: KNDA CURRENT ABX: TOTAL ABX DAY # 7 => Clindamycin IV #7 s/p Levaquin 07/30 - 08/04 = #6 days ID RECOMMENDATIONS: 1. Continue renal safe Clindamycin IV which has excellent coverage for Staph/ Strep/Anaerobes=> anticipate change to PO Clinda when cleared for DC home * Anticipate 14 days total ABX coverage = today day #7/14 2. MRSA Nares screening ordered 3. F/U on MICRO from 08/04/16 Abscess I&D = pending Problems: Consultation Date/Type/Reason Admit Date/Time Jul 30, 2016 at 17:48 Initial Consult Date Type of Consultation: ID Exam/Review of Systems Vital Signs Vitals Vital Signs Date Time Temp Pulse Resp B/P Pulse Ox O2 Delivery O2 Flow Rate FiO2 08/05/16 08:53 98.2 66 20 131/70 93 Intake and Output 08/04/16 08/04/16 08/05/16 15:00 23:00 07:00 Intake Total 430 ml 1200 ml 1940 ml Balance 430 ml 1200 ml 1940 ml Results Result Diagram: 08/04/16 0540 08/04/16 0540 Results 24 hrs Laboratory Tests Test 08/04/16 20:03 08/05/16 07:33 08/05/16 11:51 08/05/16 16:38 Bedside Glucose 123 103 105 86 Medications Medications Current Medications Albuterol (Ventolin Hfa) 2 puff Q4H PRN INH WHEEZING AND SOB; Start 07/30/16 at 20:30 Aspirin (Halfprin) 81 mg DAILY PO Last administered on 08/05/16 08:29; Admin Dose 81 MG; Start 07/31/16 at 09:00 Furosemide (Lasix) 40 mg BID@06,18 PO Last administered on 08/05/16 17:00; Admin Dose 40 MG; Start 07/30/16 at 21:00 Metoprolol Tartrate (Lopressor) 50 mg BID PO Last administered on 08/05/16 08: 36; Admin Dose 50 MG; Start 07/30/16 at 21:00 Miscellaneous Information 1 ea NOTE XX ; Start 07/30/16 at 20:30 Glucose (Glutose) 15 gm Q15M PRN PO DECREASED GLUCOSE Last administered on 08/02 02:06; Admin Dose 15 GM; Start 07/30/16 at 20:30 Glucose (Glutose) 22.5 gm Q15M PRN PO DECREASED GLUCOSE; Start 07/30/16 at 20: 30 Dextrose (D50w Syringe) 25 ml Q15M PRN IV DECREASED GLUCOSE Last administered on 08/02/16 03:01; Admin Dose 25 ML; Start 07/30/16 at 20:30 Dextrose (D50w Syringe) 50 ml Q15M PRN IV DECREASED GLUCOSE; Start 07/30/16 at 20:30 Glucagon (Glucagen) 1 mg Q15M PRN IM DECREASED GLUCOSE; Start 07/30/16 at 20:30 Glucose (Glutose) 15 gm Q15M PRN BUCCAL DECREASED GLUCOSE; Start 07/30/16 at 20 :30 Ondansetron HCl (Zofran Inj) 4 mg Q6H PRN IV NAUSEA AND/OR VOMITING; Start at 23:00 Acetaminophen (Tylenol Tab) 650 mg Q6H PRN PO PAIN LEVEL 1-3 OR FEVER Last administered on 08/03/16 20:33; Admin Dose 650 MG; Start 07/30/16 at 23:00 Acetaminophen/ Hydrocodone Bitart ([place] (5/325)) 1 tab Q6H PRN PO MODERATE PAIN LEVEL 4-6 Last administered on 08/05/16 16:58; Admin Dose 1 TAB; Start at 23:00 Enoxaparin Sodium (Lovenox) 40 mg DAILY SC Last administered on 08/05/16 08:29 ; Admin Dose 40 MG; Start 07/31/16 at 09:00 Diagnostic Test (Pha) (Accucheck) 1 ea 02 XX ; Start 07/31/16 at 02:00 Pantoprazole 40 mg 40 mg DAILY@06 PO Last administered on 08/05/16 05:05; Admin Dose 40 MG; Start 08/01/16 at 06:00 Dextrose/Sodium Chloride (D5-1/2ns) 1,000 ml @ 30 mls/hr Q24H IV Last administered on 08/05/16 16:58; Admin Dose 30 MLS/HR; Start 08/02/16 at 03:30 Hydralazine HCl (Apresoline) 10 mg Q6H PRN IV for SBP >170 Last administered on 08/02/16 22:36; Admin Dose 10 MG; Start 08/02/16 at 22:30 Hydralazine HCl (Apresoline) 25 mg TID PO Last administered on 08/05/16 13:18 ; Admin Dose 25 MG; Start 08/03/16 at 09:00 Losartan Potassium (Cozaar) 50 mg BID PO Last administered on 08/05/16 08:30; Admin Dose 50 MG; Start 08/03/16 at 09:00 Docusate Sodium 250 mg 250 mg BID PO Last administered on 08/05/16 08:29; Admin Dose 250 MG; Start 08/03/16 at 21:00 Clindamycin HCl/ Dextrose (Cleocin 900 Mg/ D5W (Pmx)) 50 ml @ 50 mls/hr Q8 IVPB Last administered on 08/05/16 14:59; Admin Dose 50 MLS/HR; Start 08/04/16 at 22:00 Sodium Hypochlorite (Dakin'S (1/4 Strength)) 1 applic DAILY IRR Last administered on 08/05/16 10:38; Admin Dose 1 APPLIC; Start 08/05/16 at 10:30 JUAN LUIS TEIXEIRA NP Aug 05, 2016 19:28
[2016-08-05 20:00] VITALS: BP 160/90; RESP 20
[2016-08-06] MEDS: ACCUCHECK AT 2AM (Patients on SS coverage) XX SCH (02:00)
[2016-08-06] MEDS: DEXTROSE 5%-0.45% NACL 1,000 ML IV SCH (03:30)
[2016-08-06] MEDS: CLINDAMYCIN 900 MG/D5W (PMX) 50 ML IVPB SCH ×3 (05:37→22:08)
[2016-08-06] MEDS: PANTOPRAZOLE (EC) 40 MG TAB PO SCH (05:38)
[2016-08-06] MEDS: FUROSEMIDE 40 MG TAB PO SCH ×2 (05:41→17:46)
[2016-08-06 06:05] LABS: ADD SCAN DIFF NO
[2016-08-06 06:14] LABS: BASOPHILS % 0.3 % (0.0-2.0); EOSINOPHILS # 0.4 10^3/ul (0.0-0.5); EOSINOPHILS % 4.6 % (0.0-7.0); HEMATOCRIT 41.5 % (37.0-47.0); HEMOGLOBIN 13.1 g/dl (12.0-16.0); LYMPHOCYTES # 2.4 10^3/ul (0.8-2.9); LYMPHOCYTES % 25.8 % (15.0-51.0); MEAN CORPUSCULAR HEMOGLOBIN 27.5 pg (29.0-33.0); MEAN CORPUSCULAR HGB CONC 31.6 g/dl (32.0-37.0); MEAN CORPUSCULAR VOLUME 87.2 fl (82.0-101.0); MEAN PLATELET VOLUME 9.9 fl (7.4-10.4); MONOCYTE # 0.5 10^3/ul (0.3-0.9); MONOCYTES % 4.8 % (0.0-11.0); NEUTROPHILS % 64.1 % (39.0-77.0); PLATELET COUNT 368 10^3/UL (140-415); RED BLOOD COUNT 4.76 10^6/ul (4.20-5.40); RED CELL DISTRIBUTION WIDTH 18.6 % (11.5-14.5); WHITE BLOOD COUNT 9.3 10^3/ul (4.8-10.8)
[2016-08-06 06:37] LABS: POTASSIUM 4.8 mmol/L (3.5-5.1)
[2016-08-06 06:40] LABS: CREATININE 1.48 mg/dl (0.44-1.00)
--- NOTE | 2016-08-06 07:41 | CONS ---
DATE OF ADMISSION: 07/30/2016 DATE OF CONSULTATION: 08/04/2016 TYPE OF CONSULTATION: Infectious Disease. REASON FOR CONSULTATION: Antibiotic management. HISTORY OF PRESENT ILLNESS: Chari Miles is a 50-year-old female who was admitted with a history of acute hypoxemic hypercapnic respiratory failure, congestive heart failure, history of renal insu fficiency, obstructive sleep apnea, obesity hypoventilation syndrome, dyslipidemia and atherosclerot ic cardiovascular disease. She now presents with right lower extremity redness, swelling and pain o f a few days' duration. She also is ALLERGIC TO PENICILLIN. On admission, her white count was 13.5, hemoglobin 38.9, platelet count 322,000. BUN and creatinine 49/2.03. A lower extremity CT s can done on 07/29/2016, shows osseous elements which appear intact with stranding of the subcutaneou s fat. No evidence of DVT. The patient was diagnosed as having right lower extremity cellulitis, a cute kidney injury, history of COPD, diabetes mellitus. She was begun on Levaquin. Chest x-ray maximus ws no evidence of acute cardiopulmonary disease. She has no evidence of abdominal pelvic mass on CT scan of the abdomen and pelvis. She has no lymphadenopathy or acute inflammatory pathology. Her w heriberto count today is 9.9, H and H of 13.0 and 40.9, platelet count 385,000. PAST MEDICAL HISTORY: Operations as outlined. FAMILY HISTORY: Noncontributory. SOCIAL HISTORY: She does not smoke, drink or abuse drugs. ALLERGIES: NONE TO PENICILLIN, SULFA OR FOODS. MEDICATIONS: Per chart. REVIEW OF SYSTEMS: As per HPI. PHYSICAL EXAMINATION: GENERAL: The patient is an overweight female who is alert, responsive, in no acute distress. VITAL SIGNS: Stable. She is afebrile. SKIN: Without generalized rash. She has right lower extremity cellulitis with blister formation. HEENT: Within normal limits. NECK: Supple. LYMPH NODES: None palpable. CHEST: Decreased breath sounds at the bases. HEART: Without murmur or gallop. ABDOMEN: Soft, nontender, without organosplenomegaly or masses. EXTREMITIES: Without cyanosis, clubbing, or edema. RECTAL AND GENITAL: Deferred. NEUROLOGIC: No focal neurological abnormality. IMPRESSION AND PLAN: The patient needs to be on a drug that kills methicillin-resistant staphyloco ccus. She currently is on Levaquin. I am going to place her on clindamycin 900 mg IV piggyback q.8 h. I will dictate my findings to Dr. Hernandez. I may stop the Levaquin as well. Dictated By: HUANG ROWLAND MD, JD/RATNA Conf#: [id number] DID#: [id number]
[2016-08-06] MEDS: INSULIN ASPART [NOVOLOG] 3 ML PEN SC SCH ×4 (08:00→20:48)
[2016-08-06 08:05] VITALS: BP 141/85; RESP 20
[2016-08-06] MEDS: ASPIRIN (EC) 81 MG TAB PO SCH (08:39)
[2016-08-06] MEDS: METOPROLOL 50 MG TAB PO SCH ×2 (08:39→20:45)
[2016-08-06] MEDS: DOCUSATE SODIUM 250 MG CAP PO SCH ×2 (08:39→20:39)
[2016-08-06] MEDS: glipiZIDE 10 MG TAB PO SCH ×2 (08:39→17:46)
[2016-08-06] MEDS: LOSARTAN 50 MG TAB PO SCH ×2 (08:40→20:45)
[2016-08-06] MEDS: ENOXAPARIN 40 MG/0.4 ML SYG SC SCH (08:41)
[2016-08-06] MEDS: SODIUM HYPOCHLORITE 0.125% 473 ML BTL IRR SCH ×2 (09:00→13:34)
--- NOTE | 2016-08-06 09:41 | PN ---
Date/Time of Note Date/Time of Note DATE: 08/06/16 TIME: 09:38 Assessment/Plan Lines/Catheters IV Catheter Type (from [facility]): Peripheral IV Abbott in Place (from [facility]): No Assessment/Plan Chief Complaint/Hosp Course 1. Right lower extremity cellulitis with abscess status post incision and drainage to/25 -Antibiotics -Local wound care -Nutrition optimization -Vitamin C -Outpatient follow up and Debridement prn -Outpatient vascular evaluation and the wound clinic 2. Possible peripheral vascular disease -Will need vascular outpatient follow-up -Encourage medical optimization 3. Morbid obesity with BMI of 38 -Nutrition optimization -Exercise optimization 4. Diabetes mellitus -Diet and medication control -Weight optimization encouraged 5. Hypertension -Diet and medication control -Weight optimization encouraged 6. Acute kidney injury. Cr improving -Judicious fluid management -Avoid nephrotoxic agents 7. Atherosclerotic heart disease -Medical optimization as above -Cardiac optimization Thank you, Problems: Subjective 24 Hr Interval Summary s/p I&D 08/04. Pain improved on right lower extremity. No fevers or chills. No nausea or vomiting. No chest pain or shortness of breath. No visual or neurologic changes. No dysuria. Positive bowel function. No headache. No seizure. Exam/Review of Systems Vital Signs Vitals Vital Signs Date Time Temp Pulse Resp B/P Pulse Ox O2 Delivery O2 Flow Rate FiO2 08/06/16 08:05 98.3 72 20 141/85 95 Intake and Output 08/05/16 08/05/16 08/06/16 15:00 23:00 07:00 Intake Total 50 ml 1610 ml 1380 ml Output Total 1100 ml 1100 ml Balance 50 ml 510 ml 280 ml Exam Free Text/Dictation Constitutional: alert, obese, oriented, No distress Psych: nl mood/affect, No anxiety Head: atraumatic, normocephalic Eyes: EOMI, PERRL, nl conjunctiva, No icteric ENMT: mucosa pink and moist, nl external ears & nose, nl lips & teeth Neck: jvd (min), non-tender, supple Respiratory: normal air movement, No congested cough, No labored breathing Cardiovascular: edema (RLE), regular rate and rhythm Gastrointestinal: non-tender, soft, No rebound or guarding Musculoskeletal: No nl extremities to inspection (RLE wound with packing) Extremities: No calf tenderness, No normal pulses Neurological: nl mental status, nl speech, nl strength Skin: nl turgor, RLE erythema improved. Wound with packing. No diaphoresis Lymph: nl lymph nodes Results Result Diagram: 08/06/16 0528 08/06/16 0520 GWENDOLYN KAMARA MD Aug 06, 2016 09:41
[2016-08-06] MEDS: HYDROCODONE/APAP (5/325) TAB PO PRN (10:42)
[2016-08-06] MEDS: ACETAMINOPHEN 325 MG TAB PO PRN (14:22)
--- NOTE | 2016-08-06 16:42 | PN ---
DATE: 08/06/2016 SUBJECTIVE: No changes overnight. The patient is alert, complaining of right lower extremity pain, no fevers. WBC 9.3, no shift, no bands. BUN 41, creatinine 1.48. MICROBIOLOGY: Right lower extremity wound culture preliminary growing Staphylococcus aureus. ANTIMICROBIALS: Patient is on clindamycin. ALLERGIES: SHE IS ALLERGIC TO PENICILLIN. PHYSICAL EXAMINATION: GENERAL: This is a morbidly obese, middle-aged woman who is in no distress. HEENT: Head atraumatic, normocephalic. Sclerae anicteric. Buccal mucosa pink. NECK: Obese. CHEST: Rise symmetrical. Breath sounds clear. HEART: S1, S2. ABDOMEN: Soft. Bowel tones present. EXTREMITIES: With right lower extremity dressing intact. ASSESSMENT: 1. Right lower extremity cellulitis with abscess, status post incision and drainage on 08/04/2016; culture growing Staphylococcus aureus preliminary. 2. Morbid obesity. 3. Diabetes. 4. Acute kidney injury. PLAN: Patient remains stable on appropriate antimicrobials, pending final cultures and sensitivitie s. Follow surgical recommendations. Dictated By: SMILEY AVILES DIGITAL TRAFFIC COORDINATOR for HUANG ROWLAND MD NI/NTS Conf#: [id number] DID#: [id number]
--- NOTE | 2016-08-06 16:56 | PN ---
Date/Time of Note Date/Time of Note DATE: 08/06/16 TIME: 16:55 Assessment/Plan VTE Prophylaxis VTE Prophylaxis Intervention: other Lines/Catheters IV C[facility] Type (from [facility]): Peripheral IV Urinary Cath still in place: No Assessment/Plan Chief Complaint/Hosp Course IMPRESSION: 1. Right lower extremity cellulitis./BLISTER s/p i and d [facility]UREUS + 2. Acute kidney injury. STABLE 3. Hypertension. 4. History of chronic obstructive pulmonary disease. 5. Atherosclerotic heart disease. 6. The patient has diabetes mellitus 7 BLISTER+S/P I AND D PLAN WOUND CARE ANTIBIOTIC per dr deejay MENDOZA CALLED Problems: Subjective 24 Hr Interval Summary Cardiovascular: no complaints Gastrointestinal: no complaints Exam/Review of Systems Vital Signs Vitals Vital Signs Date Time Temp Pulse Resp B/P Pulse Ox O2 Delivery O2 Flow Rate FiO2 08/06/16 08:05 98.3 72 20 141/85 95 Intake and Output 08/05/16 08/05/16 08/06/16 15:00 23:00 07:00 Intake Total 50 ml 1610 ml 1380 ml Output Total 1100 ml 1100 ml Balance 50 ml 510 ml 280 ml Exam Respiratory: clear to auscultation Cardiovascular: regular rate and rhythm Gastrointestinal: soft Musculoskeletal: nl extremities to inspection Extremities: normal pulses Results Result Diagram: 08/06/1628 08/06/16 0520 Results 24 hrs Laboratory Tests Test 08/05/16 20:40 08/06/16 05:20 08/06/16 05:28 08/06/16 07:31 Bedside Glucose 118 93 Anion Gap 19 H Blood Urea Nitrogen 41 H Calcium Level 9.0 Carbon Dioxide Level 29 Chloride Level 96 L Creatinine 1.48 H Glucose Level 88 Potassium Level 4.8 Sodium Level 139 Basophils # 0.0 Basophils % 0.3 Eosinophils # 0.4 Eosinophils % 4.6 Hematocrit 41.5 Hemoglobin 13.1 Lymphocytes # 2.4 Lymphocytes % 25.8 Mean Corpuscular Hemoglobin 27.5 L Mean Corpuscular Hemoglobin Concent 31.6 L Mean Corpuscular Volume 87.2 Mean Platelet Volume 9.9 Monocytes # 0.5 Monocytes % 4.8 Neutrophils # 6.0 Neutrophils % 64.1 Nucleated Red Blood Cells # 0.0 Nucleated Red Blood Cells % 0.0 Platelet Count 368 Red Blood Count 4.76 Red Cell Distribution Width 18.6 H White Blood Count 9.3 Test 08/06/16 11:03 Bedside Glucose 189 Medications Medications Current Medications Albuterol (Ventolin Hfa) 2 puff Q4H PRN INH WHEEZING AND SOB; Start 07/30/16 at 20:30 Aspirin (Halfprin) 81 mg DAILY PO Last administered on 08/06/16 08:39; Admin Dose 81 MG; Start 07/31/16 at 09:00 Furosemide (Lasix) 40 mg BID@06,18 PO Last administered on 08/06/16 05:41; Admin Dose 40 MG; Start 07/30/16 at 21:00 Metoprolol Tartrate (Lopressor) 50 mg BID PO Last administered on 08/06/16 08: 39; Admin Dose 50 MG; Start 07/30/16 at 21:00 Miscellaneous Information 1 ea NOTE XX ; Start 07/30/16 at 20:30 Glucose (Glutose) 15 gm Q15M PRN PO DECREASED GLUCOSE Last administered on 08/02 02:06; Admin Dose 15 GM; Start 07/30/16 at 20:30 Glucose (Glutose) 22.5 gm Q15M PRN PO DECREASED GLUCOSE; Start 07/30/16 at 20: 30 Dextrose (D50w Syringe) 25 ml Q15M PRN IV DECREASED GLUCOSE Last administered on 08/02/16 03:01; Admin Dose 25 ML; Start 07/30/16 at 20:30 Dextrose (D50w Syringe) 50 ml Q15M PRN IV DECREASED GLUCOSE; Start 07/30/16 at 20:30 Glucagon (Glucagen) 1 mg Q15M PRN IM DECREASED GLUCOSE; Start 07/30/16 at 20:30 Glucose (Glutose) 15 gm Q15M PRN BUCCAL DECREASED GLUCOSE; Start 07/30/16 at 20 :30 Ondansetron HCl (Zofran Inj) 4 mg Q6H PRN IV NAUSEA AND/OR VOMITING; Start at 23:00 Acetaminophen (Tylenol Tab) 650 mg Q6H PRN PO PAIN LEVEL 1-3 OR FEVER Last administered on 08/06/16 14:22; Admin Dose 650 MG; Start 07/30/16 at 23:00 Acetaminophen/ Hydrocodone Bitart ([place] (5/325)) 1 tab Q6H PRN PO MODERATE PAIN LEVEL 4-6 Last administered on 08/06/16 10:42; Admin Dose 1 TAB; Start at 23:00 Enoxaparin Sodium (Lovenox) 40 mg DAILY SC Last administered on 08/06/16 08:41 ; Admin Dose 40 MG; Start 07/31/16 at 09:00 Diagnostic Test (Pha) (Accucheck) 1 ea 02 XX ; Start 07/31/16 at 02:00 Pantoprazole 40 mg 40 mg DAILY@06 PO Last administered on 08/06/16 05:38; Admin Dose 40 MG; Start 08/01/16 at 06:00 Dextrose/Sodium Chloride (D5-1/2ns) 1,000 ml @ 30 mls/hr Q24H IV Last administered on 08/05/16 16:58; Admin Dose 30 MLS/HR; Start 08/02/16 at 03:30 Hydralazine HCl (Apresoline) 10 mg Q6H PRN IV for SBP >170 Last administered on 08/02/16 22:36; Admin Dose 10 MG; Start 08/02/16 at 22:30 Hydralazine HCl (Apresoline) 25 mg TID PO Last administered on 08/06/16 13:34 ; Admin Dose 25 MG; Start 08/03/16 at 09:00 Losartan Potassium (Cozaar) 50 mg BID PO Last administered on 08/06/16 08:40; Admin Dose 50 MG; Start 08/03/16 at 09:00 Docusate Sodium 250 mg 250 mg BID PO Last administered on 08/06/16 08:39; Admin Dose 250 MG; Start 08/03/16 at 21:00 Clindamycin HCl/ Dextrose (Cleocin 900 Mg/ D5W (Pmx)) 50 ml @ 50 mls/hr Q8 IVPB Last administered on 08/06/16 13:34; Admin Dose 50 MLS/HR; Start 08/04/16 at 22:00 Sodium Hypochlorite (Dakin'S (1/4 Strength)) 1 applic DAILY IRR Last administered on 08/06/16 13:34; Admin Dose 1 APPLIC; Start 08/05/16 at 10:30 BRYON MICHELLE MD Aug 06, 2016 16:55
[2016-08-06 21:11] VITALS: BP 133/74; RESP 19
[2016-08-07] MEDS: ACCUCHECK AT 2AM (Patients on SS coverage) XX SCH (02:00)
[2016-08-07] MEDS: HYDROCODONE/APAP (5/325) TAB PO PRN ×3 (04:48→20:40)
[2016-08-07] MEDS: DEXTROSE 5%-0.45% NACL 1,000 ML IV SCH (04:49)
[2016-08-07] MEDS: CLINDAMYCIN 900 MG/D5W (PMX) 50 ML IVPB SCH (05:12)
[2016-08-07] MEDS: PANTOPRAZOLE (EC) 40 MG TAB PO SCH (05:12)
[2016-08-07] MEDS: FUROSEMIDE 40 MG TAB PO SCH ×2 (05:14→17:43)
[2016-08-07 07:45] VITALS: BP 144/73; RESP 20
[2016-08-07] MEDS: INSULIN ASPART [NOVOLOG] 3 ML PEN SC SCH ×4 (07:55→20:37)
[2016-08-07] MEDS: glipiZIDE 10 MG TAB PO SCH (08:03)
[2016-08-07] MEDS: LOSARTAN 50 MG TAB PO SCH ×2 (08:36→20:36)
[2016-08-07] MEDS: ASPIRIN (EC) 81 MG TAB PO SCH (08:36)
[2016-08-07] MEDS: DOCUSATE SODIUM 250 MG CAP PO SCH ×2 (08:36→20:36)
[2016-08-07] MEDS: METOPROLOL 50 MG TAB PO SCH ×2 (08:37→20:35)
[2016-08-07] MEDS: ENOXAPARIN 40 MG/0.4 ML SYG SC SCH (08:38)
[2016-08-07] MEDS: SODIUM HYPOCHLORITE 0.125% 473 ML BTL IRR SCH ×2 (09:00→13:19)
--- NOTE | 2016-08-07 12:43 | CONS ---
Date/Time of Note Date/Time of Note DATE: 08/07/16 TIME: 12:42 Assessment/Plan Assessment/Plan Chief Complaint/Hosp Course SUBJECTIVE: No changes overnight. The patient is alert, complaining of right lower extremity pain, no fevers. MICROBIOLOGY: Right lower extremity wound culture growing MARKO ANTIMICROBIALS: Patient is on clindamycin. ALLERGIES: SHE IS ALLERGIC TO PENICILLIN. PHYSICAL EXAMINATION: GENERAL: This is a morbidly obese, middle-aged woman who is in no distress. HEENT: Head atraumatic, normocephalic. Sclerae anicteric. Buccal mucosa pink. NECK: Obese. CHEST: Rise symmetrical. Breath sounds clear. HEART: S1, S2. ABDOMEN: Soft. Bowel tones present. EXTREMITIES: With right lower extremity dressing intact. ASSESSMENT: 1. Right lower extremity MARKO cellulitis with abscess, status post incision and drainage on 08/04/2016 2. Morbid obesity. 3. Diabetes. 4. Acute kidney injury. PLAN: Patient remains stable, will change abx to oral Cipro, follow surgical recommendations. DW staff Problems: Consultation Date/Type/Reason Admit Date/Time Jul 30, 2016 at 17:48 Initial Consult Date Type of Consultation: ID Exam/Review of Systems Vital Signs Vitals Vital Signs Date Time Temp Pulse Resp B/P Pulse Ox O2 Delivery O2 Flow Rate FiO2 08/07/16 07:45 98.0 63 20 144/73 95 Intake and Output 08/06/16 08/06/16 08/07/16 15:00 23:00 07:00 Intake Total 50 ml 1370 ml 1580 ml Balance 50 ml 1370 ml 1580 ml Results Result Diagram: 08/06/16 0528 08/06/16 0520 Results 24 hrs Laboratory Tests Test 08/06/16 17:13 08/06/16 20:47 08/07/16 07:29 08/07/16 11:32 Bedside Glucose 121 89 93 75 Medications Medications Current Medications Albuterol (Ventolin Hfa) 2 puff Q4H PRN INH WHEEZING AND SOB; Start 07/30/16 at 20:30 Aspirin (Halfprin) 81 mg DAILY PO Last administered on 08/07/16 08:36; Admin Dose 81 MG; Start 07/31/16 at 09:00 Furosemide (Lasix) 40 mg BID@06,18 PO Last administered on 08/07/16 05:14; Admin Dose 40 MG; Start 07/30/16 at 21:00 Metoprolol Tartrate (Lopressor) 50 mg BID PO Last administered on 08/07/16 08: 37; Admin Dose 50 MG; Start 07/30/16 at 21:00 Miscellaneous Information 1 ea NOTE XX ; Start 07/30/16 at 20:30 Glucose (Glutose) 15 gm Q15M PRN PO DECREASED GLUCOSE Last administered on 08/02 02:06; Admin Dose 15 GM; Start 07/30/16 at 20:30 Glucose (Glutose) 22.5 gm Q15M PRN PO DECREASED GLUCOSE; Start 07/30/16 at 20: 30 Dextrose (D50w Syringe) 25 ml Q15M PRN IV DECREASED GLUCOSE Last administered on 08/02/16 03:01; Admin Dose 25 ML; Start 07/30/16 at 20:30 Dextrose (D50w Syringe) 50 ml Q15M PRN IV DECREASED GLUCOSE; Start 07/30/16 at 20:30 Glucagon (Glucagen) 1 mg Q15M PRN IM DECREASED GLUCOSE; Start 07/30/16 at 20:30 Glucose (Glutose) 15 gm Q15M PRN BUCCAL DECREASED GLUCOSE; Start 07/30/16 at 20 :30 Ondansetron HCl (Zofran Inj) 4 mg Q6H PRN IV NAUSEA AND/OR VOMITING; Start at 23:00 Acetaminophen (Tylenol Tab) 650 mg Q6H PRN PO PAIN LEVEL 1-3 OR FEVER Last administered on 08/06/16 14:22; Admin Dose 650 MG; Start 07/30/16 at 23:00 Acetaminophen/ Hydrocodone Bitart ([place] (5/325)) 1 tab Q6H PRN PO MODERATE PAIN LEVEL 4-6 Last administered on 08/07/16 12:23; Admin Dose 1 TAB; Start at 23:00 Enoxaparin Sodium (Lovenox) 40 mg DAILY SC Last administered on 08/07/16 08:38 ; Admin Dose 40 MG; Start 07/31/16 at 09:00 Diagnostic Test (Pha) (Accucheck) 1 ea 02 XX ; Start 07/31/16 at 02:00 Pantoprazole 40 mg 40 mg DAILY@06 PO Last administered on 08/07/16 05:12; Admin Dose 40 MG; Start 08/01/16 at 06:00 Dextrose/Sodium Chloride (D5-1/2ns) 1,000 ml @ 30 mls/hr Q24H IV Last administered on 08/07/16 04:49; Admin Dose 30 MLS/HR; Start 08/02/16 at 03:30 Hydralazine HCl (Apresoline) 10 mg Q6H PRN IV for SBP >170 Last administered on 08/02/16 22:36; Admin Dose 10 MG; Start 08/02/16 at 22:30 Hydralazine HCl (Apresoline) 25 mg TID PO Last administered on 08/07/16 08:37 ; Admin Dose 25 MG; Start 08/03/16 at 09:00 Losartan Potassium (Cozaar) 50 mg BID PO Last administered on 08/07/16 08:36; Admin Dose 50 MG; Start 08/03/16 at 09:00 Docusate Sodium 250 mg 250 mg BID PO Last administered on 08/07/16 08:36; Admin Dose 250 MG; Start 08/03/16 at 21:00 Clindamycin HCl/ Dextrose (Cleocin 900 Mg/ D5W (Pmx)) 50 ml @ 50 mls/hr Q8 IVPB Last administered on 08/07/16 05:12; Admin Dose 50 MLS/HR; Start 08/04/16 at 22:00 Sodium Hypochlorite (Dakin'S (1/4 Strength)) 1 applic DAILY IRR Last administered on 08/06/16 13:34; Admin Dose 1 APPLIC; Start 08/05/16 at 10:30 SMILEY AVILES NP Aug 07, 2016 12:43
[2016-08-07] MEDS ORDERED: CIPROFLOXACIN 500 MG TAB PO ONE (13:00)
[2016-08-07 19:47] VITALS: BP 133/84; RESP 16
--- NOTE | 2016-08-07 22:47 | PN ---
Date/Time of Note Date/Time of Note DATE: 08/07/16 TIME: 22:45 Assessment/Plan VTE Prophylaxis VTE Prophylaxis Intervention: other Lines/Catheters IV C[facility]ter Type (from [facility]): Peripheral IV Urinary Cath still in place: No Assessment/Plan Chief Complaint/Hosp Course IMPRESSION: 1. Right lower extremity cellulitis./BLISTER s/p i and d [facility] AUREUS + 2. Acute kidney injury. STABLE 3. Hypertension. 4. History of chronic obstructive pulmonary disease. 5. Atherosclerotic heart disease. 6. The patient has diabetes mellitus 7 BLISTER+S/P I AND D 8 m stable PLAN WOUND CARE ANTIBIOTIC per dr villalba per id Problems: Subjective 24 Hr Interval Summary Gastrointestinal: no complaints Genitourinary: no complaints Exam/Review of Systems Vital Signs Vitals Vital Signs Date Time Temp Pulse Resp B/P Pulse Ox O2 Delivery O2 Flow Rate FiO2 08/07/16 19:47 98.2 73 16 133/84 95 Intake and Output 08/06/16 08/06/16 08/07/16 14:59 22:59 06:59 Intake Total 50 ml 1370 ml 1580 ml Balance 50 ml 1370 ml 1580 ml Exam Neck: supple Respiratory: clear to auscultation Cardiovascular: regular rate and rhythm Gastrointestinal: bowel sounds (+), soft, No tender Extremities: No edema Results Result Diagram: 08/06/1652708/06/16 05 Results 24 hrs Laboratory Tests Test 08/07/16 07:29 08/07/16 11:32 08/07/16 17:05 08/07/16 17:07 Bedside Glucose 93 75 89 Hemoglobin A1c 6.1 H Test 08/07/16 20:04 Bedside Glucose 84 Medications Medications Current Medications Albuterol (Ventolin Hfa) 2 puff Q4H PRN INH WHEEZING AND SOB; Start 07/30/16 at 20:30 Aspirin (Halfprin) 81 mg DAILY PO Last administered on 08/07/16 08:36; Admin Dose 81 MG; Start 07/31/16 at 09:00 Furosemide (Lasix) 40 mg BID@06,18 PO Last administered on 08/07/16 17:43; Admin Dose 40 MG; Start 07/30/16 at 21:00 Metoprolol Tartrate (Lopressor) 50 mg BID PO Last administered on 08/07/16 20: 35; Admin Dose 50 MG; Start 07/30/16 at 21:00 Miscellaneous Information 1 ea NOTE XX ; Start 07/30/16 at 20:30 Glucose (Glutose) 15 gm Q15M PRN PO DECREASED GLUCOSE Last administered on 08/02 02:06; Admin Dose 15 GM; Start 07/30/16 at 20:30 Glucose (Glutose) 22.5 gm Q15M PRN PO DECREASED GLUCOSE; Start 07/30/16 at 20: 30 Dextrose (D50w Syringe) 25 ml Q15M PRN IV DECREASED GLUCOSE Last administered on 08/02/16 03:01; Admin Dose 25 ML; Start 07/30/16 at 20:30 Dextrose (D50w Syringe) 50 ml Q15M PRN IV DECREASED GLUCOSE; Start 07/30/16 at 20:30 Glucagon (Glucagen) 1 mg Q15M PRN IM DECREASED GLUCOSE; Start 07/30/16 at 20:30 Glucose (Glutose) 15 gm Q15M PRN BUCCAL DECREASED GLUCOSE; Start 07/30/16 at 20 :30 Ondansetron HCl (Zofran Inj) 4 mg Q6H PRN IV NAUSEA AND/OR VOMITING; Start at 23:00 Acetaminophen (Tylenol Tab) 650 mg Q6H PRN PO PAIN LEVEL 1-3 OR FEVER Last administered on 08/06/16 14:22; Admin Dose 650 MG; Start 07/30/16 at 23:00 Acetaminophen/ Hydrocodone Bitart ([place] (5/325)) 1 tab Q6H PRN PO MODERATE PAIN LEVEL 4-6 Last administered on 08/07/16 20:40; Admin Dose 1 TAB; Start at 23:00 Enoxaparin Sodium (Lovenox) 40 mg DAILY SC Last administered on 08/07/16 08:38 ; Admin Dose 40 MG; Start 07/31/16 at 09:00 Diagnostic Test (Pha) (Accucheck) 1 ea 02 XX ; Start 07/31/16 at 02:00 Pantoprazole (Protonix Tab) 40 mg DAILY@06 PO Last administered on 08/07/16 05 :12; Admin Dose 40 MG; Start 08/01/16 at 06:00 Hydralazine HCl (Apresoline) 10 mg Q6H PRN IV for SBP >170 Last administered on 08/02/16 22:36; Admin Dose 10 MG; Start 08/02/16 at 22:30 Hydralazine HCl (Apresoline) 25 mg TID PO Last administered on 08/07/16 20:35 ; Admin Dose 25 MG; Start 08/03/16 at 09:00 Losartan Potassium (Cozaar) 50 mg BID PO Last administered on 08/07/16 20:36; Admin Dose 50 MG; Start 08/03/16 at 09:00 Docusate Sodium (Colace) 250 mg BID PO Last administered on 08/07/16 20:36; Admin Dose 250 MG; Start 08/03/16 at 21:00 Sodium Hypochlorite (Dakin'S (1/4 Strength)) 1 applic DAILY IRR Last administered on 08/07/16 13:19; Admin Dose 1 APPLIC; Start 08/05/16 at 10:30 Ciprofloxacin (Cipro) 500 mg BID@06,18 PO ; Start 08/08/16 at 06:00 Insulin Glargine (Lantus) 12 unit DAILY@08 SC ; Start 08/08/16 at 08:00 BRYON MICHELLE MD Aug 07, 2016 22:47
--- NOTE | 2016-08-07 23:32 | PN ---
Date/Time of Note Date/Time of Note DATE: 08/07/16 TIME: 23:31 Assessment/Plan Lines/Catheters IV C[facility] Type (from [facility]): Peripheral IV Abbott in Place (from [facility]): No Assessment/Plan Chief Complaint/Hosp Course 1. Right lower extremity cellulitis with abscess status post incision and drainage to/25 -Antibiotics -Local wound care -Nutrition optimization -Vitamin C -Outpatient follow up and Debridement prn -Outpatient vascular evaluation and the wound clinic 2. Possible peripheral vascular disease -Will need vascular outpatient follow-up -Encourage medical optimization 3. Morbid obesity with BMI of 38 -Nutrition optimization -Exercise optimization 4. Diabetes mellitus -Diet and medication control -Weight optimization encouraged 5. Hypertension -Diet and medication control -Weight optimization encouraged 6. Acute kidney injury. Cr improving -Judicious fluid management -Avoid nephrotoxic agents 7. Atherosclerotic heart disease -Medical optimization as above -Cardiac optimization Thank you, Problems: Subjective 24 Hr Interval Summary s/p I&D 08/04. Pain improved on right lower extremity. No fevers or chills. No nausea or vomiting. No chest pain or shortness of breath. No visual or neurologic changes. No dysuria. Positive bowel function. No headache. No seizure. Exam/Review of Systems Vital Signs Vitals Vital Signs Date Time Temp Pulse Resp B/P Pulse Ox O2 Delivery O2 Flow Rate FiO2 08/07/16 19:47 98.2 73 16 133/84 95 Intake and Output 08/06/16 08/06/16 08/07/16 15:00 23:00 07:00 Intake Total 50 ml 1370 ml 1580 ml Balance 50 ml 1370 ml 1580 ml Exam Free Text/Dictation Constitutional: alert, obese, oriented, No distress Psych: nl mood/affect, No anxiety Head: atraumatic, normocephalic Eyes: EOMI, PERRL, nl conjunctiva, No icteric ENMT: mucosa pink and moist, nl external ears & nose, nl lips & teeth Neck: jvd (min), non-tender, supple Respiratory: normal air movement, No congested cough, No labored breathing Cardiovascular: edema (RLE), regular rate and rhythm Gastrointestinal: non-tender, soft, No rebound or guarding Musculoskeletal: No nl extremities to inspection (RLE wound with packing) Extremities: No calf tenderness, No normal pulses Neurological: nl mental status, nl speech, nl strength Skin: nl turgor, RLE erythema improved. Wound with packing. No diaphoresis Lymph: nl lymph nodes Results Result Diagram: 08/06/16 0528 08/06/16 0520 GWENDOLYN KAMARA MD Aug 07, 2016 23:32
[2016-08-08] MEDS: ACCUCHECK AT 2AM (Patients on SS coverage) XX SCH (01:23)
[2016-08-08] MEDS: PANTOPRAZOLE (EC) 40 MG TAB PO SCH (05:35)
[2016-08-08] MEDS: CIPROFLOXACIN 500 MG TAB PO SCH ×2 (05:35→17:27)
[2016-08-08] MEDS: FUROSEMIDE 40 MG TAB PO SCH ×2 (05:36→17:28)
[2016-08-08] MEDS ORDERED: INSULIN GLARGINE [LANtus] 3 ML PEN SC SCH (08:00)
[2016-08-08] MEDS: INSULIN ASPART [NOVOLOG] 3 ML PEN SC SCH ×6 (08:00→17:31)
[2016-08-08 08:10] VITALS: BP 117/64; RESP 20
[2016-08-08] MEDS: DOCUSATE SODIUM 250 MG CAP PO SCH (08:45)
[2016-08-08] MEDS: ENOXAPARIN 40 MG/0.4 ML SYG SC SCH (08:45)
[2016-08-08] MEDS: LOSARTAN 50 MG TAB PO SCH (08:47)
[2016-08-08] MEDS: METOPROLOL 50 MG TAB PO SCH (08:47)
[2016-08-08] MEDS: ASPIRIN (EC) 81 MG TAB PO SCH (08:47)
[2016-08-08] MEDS: SODIUM HYPOCHLORITE 0.125% 473 ML BTL IRR SCH (08:47)
--- NOTE | 2016-08-08 11:39 | PDOCDIS ---
Discharge Instructions CONDITION Patient Condition: Stable HOME CARE INSTRUCTIONS: Special Diet: controlled carb, low cholesterol, low fat ACTIVITY: Activity Restrictions: Slowly Increase Activity FOLLOW UP/APPOINTMENTS Appointments F/U OWN PCP [address] [facility] BRYON MICHELLE MD Aug 08, 2016 11:39
--- NOTE | 2016-08-08 11:42 | PDOCDIS ---
Discharge Instructions CONDITION Patient Condition: Stable HOME CARE INSTRUCTIONS: Special Diet: controlled carb, low cholesterol, low fat ACTIVITY: Activity Restrictions: Slowly Increase Activity BRYON MICHELLE MD Aug 08, 2016 11:42
[2016-08-08] MEDS ORDERED: LOSA50TA6 PO (11:44)
[2016-08-08] MEDS ORDERED: HYDR-3498 PO (11:44)
[2016-08-08] MEDS ORDERED: CIPR500T4 PO (11:44)
[2016-08-08] MEDS ORDERED: DAK125 IRR (11:44)
--- NOTE | 2016-08-08 15:07 | CONS ---
Date/Time of Note Date/Time of Note DATE: 08/08/16 TIME: 15:06 Assessment/Plan Assessment/Plan Chief Complaint/Hosp Course SUBJECTIVE: No changes overnight. The patient is alert, complaining of right lower extremity pain, no fevers. MICROBIOLOGY: Right lower extremity wound culture growing MARKO ANTIMICROBIALS: Cipro ALLERGIES: SHE IS ALLERGIC TO PENICILLIN. PHYSICAL EXAMINATION: GENERAL: This is a morbidly obese, middle-aged woman who is in no distress. HEENT: Head atraumatic, normocephalic. Sclerae anicteric. Buccal mucosa pink. NECK: Obese. CHEST: Rise symmetrical. Breath sounds clear. HEART: S1, S2. ABDOMEN: Soft. Bowel tones present. EXTREMITIES: With right lower extremity dressing intact. ASSESSMENT: 1. Right lower extremity MARKO cellulitis with abscess, status post incision and drainage on 08/04/2016 2. Morbid obesity. 3. Diabetes. 4. Acute kidney injury. PLAN: Patient remains stable, continue Cipro, follow surgical recommendations. Anticipate to treat with abx for 2 weeks DW staff DW staff Problems: Consultation Date/Type/Reason Admit Date/Time Jul 30, 2016 at 17:48 Type of Consultation: ID Exam/Review of Systems Vital Signs Vitals Vital Signs Date Time Temp Pulse Resp B/P Pulse Ox O2 Delivery O2 Flow Rate FiO2 08/08/16 08:10 98.2 79 20 117/64 92 Intake and Output 08/07/16 08/07/16 08/08/16 15:00 23:00 07:00 Intake Total 1400 ml 450 ml Balance 1400 ml 450 ml Results Result Diagram: 08/06/16 0528 08/06/16 0520 Results 24 hrs Laboratory Tests Test 08/07/16 17:05 08/07/16 17:07 08/07/16 20:04 08/08/16 07:52 Hemoglobin A1c 6.1 H Bedside Glucose 89 84 103 Test 08/08/16 11:52 Bedside Glucose 112 Medications Medications Current Medications Albuterol (Ventolin Hfa) 2 puff Q4H PRN INH WHEEZING AND SOB; Start 07/30/16 at 20:30 Aspirin (Halfprin) 81 mg DAILY PO Last administered on 08/08/16t 08:47; Admin Dose 81 MG; Start 07/31/16 at 09:00 Furosemide (Lasix) 40 mg BID@06,18 PO Last administered on 08/08/16 05:36; Admin Dose 40 MG; Start 07/30/16 at 21:00 Metoprolol Tartrate (Lopressor) 50 mg BID PO Last administered on 08/08/16 08: 47; Admin Dose 50 MG; Start 07/30/16 at 21:00 Miscellaneous Information 1 ea NOTE XX ; Start 07/30/16 at 20:30 Glucose (Glutose) 15 gm Q15M PRN PO DECREASED GLUCOSE Last administered on 08/02 02:06; Admin Dose 15 GM; Start 07/30/16 at 20:30 Glucose (Glutose) 22.5 gm Q15M PRN PO DECREASED GLUCOSE; Start 07/30/16 at 20: 30 Dextrose (D50w Syringe) 25 ml Q15M PRN IV DECREASED GLUCOSE Last administered on 08/02/16 03:01; Admin Dose 25 ML; Start 07/30/16 at 20:30 Dextrose (D50w Syringe) 50 ml Q15M PRN IV DECREASED GLUCOSE; Start 07/30/16 at 20:30 Glucagon (Glucagen) 1 mg Q15M PRN IM DECREASED GLUCOSE; Start 07/30/16 at 20:30 Glucose (Glutose) 15 gm Q15M PRN BUCCAL DECREASED GLUCOSE; Start 07/30/16 at 20 :30 Ondansetron HCl (Zofran Inj) 4 mg Q6H PRN IV NAUSEA AND/OR VOMITING; Start at 23:00 Acetaminophen (Tylenol Tab) 650 mg Q6H PRN PO PAIN LEVEL 1-3 OR FEVER Last administered on 08/06/16 14:22; Admin Dose 650 MG; Start 07/30/16 at 23:00 Acetaminophen/ Hydrocodone Bitart (Kershaw (5/325)) 1 tab Q6H PRN PO MODERATE PAIN LEVEL 4-6 Last administered on 08/07/16 20:40; Admin Dose 1 TAB; Start at 23:00 Enoxaparin Sodium (Lovenox) 40 mg DAILY SC Last administered on 08/08/16 08:45 ; Admin Dose 40 MG; Start 07/31/16 at 09:00 Diagnostic Test (Pha) (Accucheck) 1 ea 02 XX ; Start 07/31/16 at 02:00 Pantoprazole (Protonix Tab) 40 mg DAILY@06 PO Last administered on 08/08/16 05: 35; Admin Dose 40 MG; Start 08/01/16 at 06:00 Hydralazine HCl (Apresoline) 10 mg Q6H PRN IV for SBP >170 Last administered on 08/02/16 22:36; Admin Dose 10 MG; Start 08/02/16 at 22:30 Hydralazine HCl (Apresoline) 25 mg TID PO Last administered on 08/08/16 13:43; Admin Dose 25 MG; Start 08/03/16 at 09:00 Losartan Potassium (Cozaar) 50 mg BID PO Last administered on 08/08/16 08:47; Admin Dose 50 MG; Start 08/03/16 at 09:00 Docusate Sodium (Colace) 250 mg BID PO Last administered on 08/08/16 08:45; Admin Dose 250 MG; Start 08/03/16 at 21:00 Sodium Hypochlorite (Dakin'S (1/4 Strength)) 1 applic DAILY IRR Last administered on 08/08/16 08:47; Admin Dose 1 APPLIC; Start 08/05/16 at 10:30 Ciprofloxacin (Cipro) 500 mg BID@06,18 PO Last administered on 08/08/16 05:35; Admin Dose 500 MG; Start 08/08/16 at 06:00 Insulin Glargine (Lantus) 12 unit DAILY@08 SC Last administered on 08/08/16 08: 44; Admin Dose 12 UNIT; Start 08/08/16 at 08:00 SMILEY AVILES NP Aug 08, 2016 15:07
--- NOTE | 2016-08-09 17:14 | PN ---
Date/Time of Note Date/Time of Note DATE: 08/08/16 TIME: 10:13 Assessment/Plan Lines/Catheters IV Catheter Type (from [facility]): Saline Lock Abbott in Place (from Nrs): No Assessment/Plan Chief Complaint/Hosp Course 1. Right lower extremity cellulitis with abscess status post incision and drainage to/25 -Antibiotics -Local wound care -Nutrition optimization -Vitamin C -Outpatient follow up and Debridement prn -Outpatient vascular evaluation and the wound clinic 2. Possible peripheral vascular disease -Will need vascular outpatient follow-up -Encourage medical optimization 3. Morbid obesity with BMI of 38 -Nutrition optimization -Exercise optimization 4. Diabetes mellitus -Diet and medication control -Weight optimization encouraged 5. Hypertension -Diet and medication control -Weight optimization encouraged 6. Acute kidney injury. Cr improving -Judicious fluid management -Avoid nephrotoxic agents 7. Atherosclerotic heart disease -Medical optimization as above -Cardiac optimization Thank you, Late entry 08/08 Problems: Subjective 24 Hr Interval Summary s/p I&D 08/04. Pain improved on right lower extremity. No fevers or chills. No nausea or vomiting. No chest pain or shortness of breath. No visual or neurologic changes. No dysuria. Positive bowel function. No headache. No seizure. Exam/Review of Systems Vital Signs Vitals Vital Signs Date Time Temp Pulse Resp B/P Pulse Ox O2 Delivery O2 Flow Rate FiO2 08/08/16 08:10 98.2 79 20 117/64 92 Intake and Output 08/08/16 08/08/16 08/09/16 15:00 23:00 07:00 Intake Total 1100 ml Balance 1100 ml Exam Free Text/Dictation Constitutional: alert, obese, oriented, No distress Psych: nl mood/affect, No anxiety Head: atraumatic, normocephalic Eyes: EOMI, PERRL, nl conjunctiva, No icteric ENMT: mucosa pink and moist, nl external ears & nose, nl lips & teeth Neck: jvd (min), non-tender, supple Respiratory: normal air movement, No congested cough, No labored breathing Cardiovascular: edema (RLE), regular rate and rhythm Gastrointestinal: non-tender, soft, No rebound or guarding Musculoskeletal: No nl extremities to inspection (RLE wound with packing) Extremities: No calf tenderness, No normal pulses Neurological: nl mental status, nl speech, nl strength Skin: nl turgor, RLE erythema improved. Wound with packing. No diaphoresis Lymph: nl lymph nodes Results Result Diagram: 08/06/16 0528 08/06/16 0520 GWENDOLYN KAMARA MD Aug 09, 2016 17:14
--- NOTE | 2016-08-09 17:40 | QN ---
Documentation Comment [id number] BRYON MICHELLE MD Aug 09, 2016 17:40
--- NOTE | 2016-08-09 19:46 | DS ---
DATE OF ADMISSION: 07/30/2016 DATE OF DISCHARGE: 08/08/2016 HOSPITAL COURSE: Patient was admitted with diagnosis of diabetes mellitus, hypertension, has acute kidney injury, possible right lower extremity cellulitis , history of COPD, atherosclerotic heart disease. Patient was seen by Dr. Back in consultation and Dr. Roly Gonzalez, underwent I and D. Patient Staphylococcus aureus infection. Noted methicillin-sensitive Staph aureus infection treated with IV antibiotics. The patient is responding very well. Patient at home takes_ medication. He was on insulin, which was switched back to an oral medication at the request of the patient. Patient will be discharged home. DISCHARGE DIAGNOSES: Right lower extremity cellulitis, status post I and D. Patient has obesity, diabetes mellitus, hypertension, underlying CKD, atherosclerotic heart disease, Staph aureus infection. DISCHARGE MEDICATIONS: Patient to continue on: 1. Ciprofloxacin. 2. Hydrocodone. 3. antibiotic 4. Sodium chloride. 5. Dakin solution. 6. Albuterol. 7. Aspirin. 8. Glipizide. 9. Hydrochlorothiazide. 10. Metoprolol. Metformin was stopped. Lasix was stopped. Patient to follow with Dr. Back and Dr. Gonzalez and myself, and patient's primary care doctor as an outpatient. CONDITION: Patient is stable at the time of discharge. Dictated By: BRYON WILLS/RATNA Conf#: [id number] DID#: [id number] MTDD
== END 2016-08-08 19:23 | disposition home or self-care (01) | DRG 603 ==
LOC: E/R 11:46 → PP2 17:48
PROVIDERS: ADMIT Internal Medicine Nephrology; ATTEND Internal Medicine Nephrology
PROC: 0H9KXZZ Drainage of Right Lower Leg Skin, External Approach (ICD-10-PCS; principal; 2016-08-04)
DX: L03.115 Cellulitis of right lower limb (principal); N17.9 Acute kidney failure, unspecified; E11.42 Type 2 diabetes mellitus with diabetic polyneuropathy; I13.0 Hypertensive heart and chronic kidney disease with heart failure and stage 1 through stage 4 chronic kidney disease, or unspecified chronic kidney disease; I50.9 Heart failure, unspecified; E66.2 Morbid (severe) obesity with alveolar hypoventilation; L02.415 Cutaneous abscess of right lower limb; B95.61 Methicillin susceptible Staphylococcus aureus infection as the cause of diseases classified elsewhere; J45.909 Unspecified asthma, uncomplicated; E86.0 Dehydration; J44.9 Chronic obstructive pulmonary disease, unspecified; N18.9 Chronic kidney disease, unspecified; S80.821A Blister (nonthermal), right lower leg, initial encounter; Z68.37 Body mass index [BMI] 37.0-37.9, adult; Z79.82 Long term (current) use of aspirin; Z79.84 Long term (current) use of oral hypoglycemic drugs; Z88.0 Allergy status to penicillin
CPT/HCPCS: 36415; 71010; 74176; 80048; 80053; 81001; 81003; 82962; 83036; 83690; 85025; 87070; 87081; 93005; 96374; 96375; 96376; C9113; J0360; J1650; J1815; J1956; J2270; J2405; J7030; J7040; J7042

== ENCOUNTER 2016-09-05 11:27 | Emergency (ER) | payer BC ==
[~2016-09-05] VITALS: Wt 88.0 kg
[~2016-09-05 11:27] MED LIST changes: -APR50 PO; -ASPI81TA3 PO; +CIPR500T4 PO; -CLIN-73 PO; +DAK125 IRR; -FURO40TA4 PO; +HYDR-3498 PO; -HYDR-902 PO; +LOSA50TA6 PO; -METF-382 PO; +METO-429 PO; -METO-448 PO; -METO25TA4 PO; -ONDA4TAB14 PO
[2016-09-05] MEDS ORDERED: ALBUTEROL 0.083% (NEB) 2.5 MG/3 ML AMP HHN STA (11:50)
[2016-09-05] MEDS ORDERED: LORAZEPAM 0.5 MG TAB PO ONE (12:00)
[2016-09-05] MEDS ORDERED: IBUPROFEN 600 MG TAB PO ONE (12:00)
--- NOTE | 2016-09-05 12:58 | RADRPT ---
PROCEDURE: Chest Radiograph. CLINICAL INDICATION: Cough TECHNIQUE: Single frontal chest radiograph. COMPARISON: Chest radiograph 07/30/2016 FINDINGS: The heart is magnified and may be enlarged.. Lung volumes are decreased in there is basilar atelect asis and central compressive changes. Superimposed basilar infiltrates cannot be excluded, however n o lobar or confluent infiltrate is seen. The bones are intact. IMPRESSION: 1. Low lung volumes with basilar atelectasis and central compressive changes. 2. Possible superimposed basilar infiltrates. Recommend follow-up as clinically indicated. RPTAT: KK .Chris Maldonado MD, MD Date Time Electronically viewed and signed by .Chris Maldonado MD, on 09/05/2016 12:58 .B/
[2016-09-05] MEDS ORDERED: ALPR0.5T PO (13:06)
--- NOTE | 2016-09-05 13:12 | ERD ---
ER Documentation Chief Complaint Date/Time DATE: 09/05/16 TIME: 13:10 Chief Complaint LEFT ARM PAIN AND CHEST PAIN FOR THE PAST FEW DAYS. NO N.V NO TRAUMA HPI 50-year-old woman presents with sharp nonexertional nonradiating chest pain 3- 4 days as well as bilateral upper extremity paresthesias, she has had similar episodes in the past. She denies using analgesics for her symptoms, denies fevers or chills, no cough, no calf or leg swelling, no vomiting or diarrhea. ROS All systems reviewed and are negative except as per history of present illness. Medications Home Meds Active Scripts Alprazolam* (Xanax*) 0.5 Mg Tab, 0.5 MG PO TID for ANXIETY, #9 TAB Prov:SERGIO RAMAN MD 09/05/16 Losartan Potassium* (Losartan Potassium*) 50 Mg Tablet, 50 MG PO BID for 14 Days , TAB Prov:BRYON MICHELLE MD 08/08/16 Reported Medications Metoprolol Tartrate* (Lopressor*) 50 Mg Tab, 50 MG PO BID, #60 TAB 07/30/16 Aspirin* (Aspirin* (EC)) 81 Mg Tablet.dr, 81 MG PO DAILY, TAB 05/10/16 Hydrochlorothiazide* (Hydrochlorothiazide*) 25 Mg Tab, 25 MG PO DAILY, #30 TAB 05/10/16 Glipizide* (Glipizide*) 10 Mg Tablet, 10 MG PO BID, TAB 05/10/16 Albuterol Sulfate* (Proair HFA*) 8.5 Gm Hfa.aer.ad, 2 PUFF INH Q4H Y for WHEEZING AND SOB, INH 07/02/14 Losartan Potassium* (Cozaar*) 100 Mg Tablet, 100 MG PO DAILY, TAB 07/02/14 Discontinued Scripts Sodium Hypochlorite (Dakin's (1/4 Strength)) 473 Ml Irrig.soln, 1 APPLIC IRR DAILY for 14 Days Prov:BRYON MICHELLE MD 08/08/16 Hydrocodone Bit-Acetaminophen (Hydrocodone Bit-APAP) 5-325MG Tablet, 1 TAB PO Q6H Y for MODERATE PAIN LEVEL 4-6 for 14 Days, TAB Prov:BRYON MICHELLE MD 08/08/16 Ciprofloxacin Hcl* (Ciprofloxacin Hcl*) 500 Mg Tablet, 500 MG PO BID@06,18 for 14 Days, TAB Prov:BRYON MICHELLE MD 08/08/16 Allergies Allergies: Coded Allergies: Penicillins (Verified Allergy, Mild, 07/30/16) PMhx/Soc Anxiety, COPD, hypertension, diabetes mellitus, obesity, recent right lower extremity cellulitis, coronary artery disease History of Surgery: Yes (SC Section X 4) Anesthesia Reaction: No Hx Neurological Disorder: No Hx Respiratory Disorders: Yes (Asthma) Hx Cardiac Disorders: Yes (HTN, High Cholesterol) Hx Psychiatric Problems: No Hx Miscellaneous Medical Probl: No Hx Alcohol Use: Yes ( Social drinker) Hx Substance Use: No Hx Tobacco Use: No Smoking Status: Never smoker FmHx Family History: diabetes Physical Exam Vitals Vital Signs Date Time Temp Pulse Resp B/P Pulse Ox O2 Delivery O2 Flow Rate FiO2 09/05/16 14:21 77 18 145/70 99 Room Air 09/05/16 12:24 70 18 159/73 95 Room Air 09/05/16 11:58 71 18 96 21 09/05/16 11:33 98.8 65 21 198/82 95 Physical Exam GENERAL: Well-developed, well-nourished, anxious HEENT: Moist mucous membranes, pink conjunctiva, no cervical spine tenderness or step-off deformities, no goiter, no jaundice or icterus, extraocular movements intact without pain. No submandibular induration, and no pharyngeal erythema NEURO: Alert and oriented 3, cranial nerves II through XII intact bilaterally, pupils equal round reactive to light, no focal deficits or facial asymmetry, sensation intact distally Strength 5/5 in upper and lower extremities bilaterally CARDIAC: Regular rate and rhythm, no murmurs rubs or gallops LUNGS: Clear bilaterally no wheezing crackles or stridor ABDOMEN: Soft nontender, no guarding, no rigidity, no rebound, no psoas sign no obturator sign. Normoactive bowel sounds SKIN: Warm and dry to touch, no abrasions, contusions, or hematomas, no lacerations, no ecchymosis, no target lesions, and without ulcers EXTREMITIES: No clubbing cyanosis or edema, calves are bilaterally symmetrical, no Homans sign, no popliteal cord sign. Distal pulses equal and bilateral PSYCH: Anxious Results 24 hrs Laboratory Tests Test 09/05/16 11:56 Troponin I < 0.012ng/ml Current Medications Medications (Trade) Dose Ordered Sig/Sarah Route PRN Reason Start Time Stop Time Status Last Admin Dose Admin Albuterol (Proventil 0.083% (Neb)) 5 mg ONCE STAT HHN 09/05/16 11:50 09/05/16 11:52 DC 09/05/16 11:58 Lorazepam (Ativan) 0.5 mg ONCE ONCE PO 09/05/16 12:00 09/05/16 12:01 DC 09/05/16 12:22 Ibuprofen (Motrin) 600 mg ONCE ONCE PO 09/05/16 12:00 09/05/16 12:01 DC 09/05/16 12:22 Procedures/MDM Patient was placed on shelter monitor rhythm strip revealed a sinus rhythm at about 70 bpm with upright P and T waves. EKG performed, read by me revealed a normal sinus rhythm at 73 bpm with a left axis deviation, narrow QRS complex, no concerning ST elevations or depressions noted. I administered lorazepam 0.5 mg p.o., ibuprofen 600 mg p.o., and albuterol 5 mg via nebulizer. She felt much better after medications were administered, remained afebrile, and respiratory rate was 18 breaths per minute and normal. Chest X-ray 1V Interpreted by me: Soft Tissue: No acute abnormalities Bones: No acute abnormalities Mediastinum/Cardiac Silhouette/Lungs: No acute abnormalities I do not suspect decompensated heart failure or pneumonia, patient looks well, and was told to return here in 1 day for reevaluation. I do not suspect her chest pain is related to an acute cardiac event Differential diagnoses considered, included but not limited to acute coronary syndrome, pulmonary embolism, aortic dissection, abdominal aortic aneurysm, sepsis, stroke, meningitis, encephalitis, pneumonia, appendicitis, cholecystitis , bowel obstruction, pyelonephritis, nephrolithiasis, cystitis, as well as metabolic, hematologic, and electrolyte abnormalities. As well as abscess, cellulitis, fractures, and dislocations. Patient feels much better at this time, and vital signs are normal, symptoms have improved. I did give strict instructions to return to the ED if symptoms continue or worsen, patient will otherwise follow-up with primary care physician. Patient understood instructions and agreed to plan. Departure Diagnosis: Primary Impression: Paresthesia Additional Impression: Chest pain Chest pain type: unspecified Qualified Code: R07.9 - Chest pain, unspecified type Condition: Good Patient Instructions: SERGIO Holguin MD Sep 05, 2016 13:12
[2016-09-05 14:21] VITALS: BP 145/70; PULSE 77; RESP 18
== END 2016-09-05 14:22 | disposition home or self-care (01) ==
LOC: E/R 11:27
DX: R20.2 Paresthesia of skin (principal); I10 Essential (primary) hypertension; J45.909 Unspecified asthma, uncomplicated; E11.9 Type 2 diabetes mellitus without complications; J44.9 Chronic obstructive pulmonary disease, unspecified; E66.9 Obesity, unspecified; I25.10 Atherosclerotic heart disease of native coronary artery without angina pectoris; R05 Cough; Z79.82 Long term (current) use of aspirin; Z79.84 Long term (current) use of oral hypoglycemic drugs
CPT/HCPCS: 71010; 84484; 93005; 94664; Z7610

== ENCOUNTER 2017-03-26 16:22 | Emergency (ER) | payer BC ==
[~2017-03-26] VITALS: Wt 117.0 kg
[~2017-03-26 16:22] MED LIST changes: +ATOR20TA65 PO; -CIPR500T4 PO; -DAK125 IRR; +FURO40TA4 PO; -HYD25 PO; -HYDR-3498 PO; -LOSA100T47 PO; +LOSA25TA5 PO; -LOSA50TA6 PO; +METF500T4 PO
[2017-03-26 16:54] VITALS: BP 199/93
[2017-03-26] MEDS ORDERED: ASPIRIN (EC) 325 MG TAB PO ONE (18:00)
--- NOTE | 2017-03-26 18:40 | RADRPT ---
PROCEDURE: US Lower extremity Venous. CLINICAL INDICATION: CALF PAIN, LEFT TECHNIQUE: Multiple sonographic images of the left lower extremity deep venous system was obtained utilizing grayscale, color-flow, compressive sonography and doppler imaging with augmentation. The images were reviewed on a PACS workstation. COMPARISON: None. FINDINGS: There is normal compressibility and flow within the left common femoral, deep femoral, superficial f emoral and popliteal veins. The deep veins the calf were incompletely visualized. IMPRESSION: No sonographic evidence for deep venous thrombosis in the left lower extremity. Physician Genevieve Date Time Electronically viewed and signed by Physician Genevieve on 03/26/2017 18:39 ML/
[2017-03-26] MEDS ORDERED: HYDR-902 PO (19:06)
--- NOTE | 2017-03-26 19:09 | ERD ---
ER Documentation Chief Complaint Date/Time DATE: 03/26/17 TIME: 19:07 Chief Complaint left knee pain, no injury, onset 2 weeks HPI This is a 51-year-old female complains of pain to her left posterior upper calf for the past week. Denies any injury says she has some sharp pain located left upper calf worse when she walks better and she still. No shortness of breath chest pain no swelling no erythema. No history of DVT in the past ROS All systems reviewed and are negative except as per history of present illness. Medications Home Meds Active Scripts Hydrocodone/Acetaminophen (Ashkum 10-325 Tablet) 1 Each Tablet, 1 TAB PO Q6H Y for PAIN, #20 TAB Prov:ISRAEL MARVIN DO 03/26/17 Losartan Potassium* (Losartan Potassium*) 25 Mg Tablet, 25 MG PO DAILY for 14 Days, #14 TAB Prov:MAGALY ROSARIO MD 01/30/17 Atorvastatin Calcium (Atorvastatin Calcium) 20 Mg Tablet, 20 MG PO HS for 30 Days, #30 TAB Prov:MAGALY ROSARIO MD 01/30/17 Albuterol Sulfate* (Proair HFA*) 8.5 Gm Hfa.aer.ad, 2 PUFF INH Q4H Y for WHEEZING AND SOB for 30 Days, #1 INH Prov:MAGALY ROSARIO MD 01/30/17 Reported Medications Metformin Hcl* (Metformin Hcl*) 500 Mg Tablet, 500 MG PO WITH BREAKFAST DINNE, # 30 TAB 01/24/17 Furosemide* (Furosemide*) 40 Mg Tablet, 40 MG PO BID, TAB 01/24/17 Metoprolol Tartrate* (Lopressor*) 50 Mg Tab, 50 MG PO BID, #60 TAB 07/30/16 Aspirin* (Aspirin* (EC)) 81 Mg Tablet.dr, 81 MG PO DAILY, TAB 05/10/16 Glipizide* (Glipizide*) 10 Mg Tablet, 10 MG PO BID, TAB 05/10/16 Allergies Allergies: Coded Allergies: Penicillins (Verified Allergy, Mild, 01/24/17) PMhx/Soc History of Surgery: Yes (C.section x 4) Anesthesia Reaction: No Hx Neurological Disorder: No Hx Respiratory Disorders: Yes (asthma, Pneumonia) Hx Cardiac Disorders: Yes (HPN,) Hx Psychiatric Problems: No Hx Miscellaneous Medical Probl: Yes (hypercholesterolemia) Hx Alcohol Use: No Hx Substance Use: No Hx Tobacco Use: No Smoking Status: Never smoker FmHx Family History: No coronary disease Physical Exam Vitals Vital Signs Date Time Temp Pulse Resp B/P Pulse Ox O2 Delivery O2 Flow Rate FiO2 03/26/17 16:54 199/93 03/26/17 16:27 99.2 68 18 210/107 98 Physical Exam Const: Well-developed, well-nourished Head: Atraumatic, normocephalic Eyes: Normal Conjunctiva, PERRLA, EOMI, normal sclera, no nystagmus ENT: Normal External Ears, Nose and Mouth, moist mucus membranes. Neck: Full range of motion. No meningismus, no lymphadenopathy. Resp: Clear to auscultation bilaterally, no wheezing, rhonchi, rales Cardio: Regular rate and rhythm, no murmurs, S1 S2 present Abd: Soft, non tender x 4, non distended. Normal bowel sounds, no guarding or rebound, no pulsitile abdominal masses or bruits Skin: No petechiae or rashes, no ecchymosis , no maculopapular rash Back: No midline or flank tenderness Ext: No cyanosis, or edema, FROM x 4, posterior left calf has tenderness to palpation with some slight bruising to the skin, no erythema no swelling, neurovascularly intact x 4 Neur: Awake and alert, STR 5/5 x 4, sensation intact x 4, no focal findings, cerebellum intact Psych: Normal Mood and Affect Results 24 hrs Current Medications Medications (Trade) Dose Ordered Sig/Sarah Route PRN Reason Start Time Stop Time Status Last Admin Dose Admin Aspirin (Ecotrin) 325 mg ONCE ONCE PO 03/26/17 18:00 03/26/17 18:01 DC 03/26/17 18:26 Procedures/MDM PROCEDURE: US Lower extremity Venous. CLINICAL INDICATION: CALF PAIN, LEFT TECHNIQUE: Multiple sonographic images of the left lower extremity deep venous system was obtained utilizing grayscale, color-flow, compressive sonography and doppler imaging with augmentation. The images were reviewed on a PACS workstation. COMPARISON: None. FINDINGS: There is normal compressibility and flow within the left common femoral, deep femoral, superficial femoral and popliteal veins. The deep veins the calf were incompletely visualized. IMPRESSION: No sonographic evidence for deep venous thrombosis in the left lower extremity. Eric Murrieta, Physician Date Time Electronically viewed and signed by Eric Murrieta Physician on 03/26/2017 18 :39 ML/ CC: ISRAEL MARVIN DO No evidence of DVT. Will treat as a muscle strain and provide some Ashkum Departure Diagnosis: Primary Impression: Muscle strain of left lower leg Encounter type: initial encounter Qualified Code: S86.912A - Muscle strain of left lower leg, initial encounter Condition: Stable Patient Instructions: Muscle Strain, Extremity ISRAEL MARVIN DO Mar 26, 2017 19:09
== END 2017-03-26 19:44 | disposition home or self-care (01) ==
LOC: E/R 16:22
DX: S86.912A Strain of unspecified muscle(s) and tendon(s) at lower leg level, left leg, initial encounter (principal); J45.909 Unspecified asthma, uncomplicated; X58.XXXA Exposure to other specified factors, initial encounter; Y92.9 Unspecified place or not applicable; Z79.82 Long term (current) use of aspirin; Z79.84 Long term (current) use of oral hypoglycemic drugs
CPT/HCPCS: 93971; Z7502; Z7610; 99283

== ENCOUNTER 2018-02-19 13:19 | Inpatient (IN) | END 2018-02-27 18:30 | disposition home health service (06) | DRG 291 ==

== ENCOUNTER 2018-05-04 19:23 | Emergency (ER) | END 2018-05-04 23:00 | disposition short-term general hospital (02) ==

== ENCOUNTER 2018-11-07 04:08 | Inpatient (IN) | payer OTHER ==
[~2018-11-07] VITALS: Ht 154.9 cm; Wt 114.8 kg
[~2018-11-07 04:08] MED LIST changes: -ALBU8.5H3 INH; +ALBU8.5H8 INH; +ASPI-1046 PO; -ASPI-664 PO; -ATOR20TA65 PO; +ATOR40TA68 PO; +FLUT1AER INH; -GLIP-95 PO; +GLIP10TA14 PO; +HYDR-3980 PO; +ISOS10TA2 PO; -LOSA25TA5 PO; +LOSA50TA2 PO; +METF500T24 PO; -METF500T4 PO; +NIFE30TA2 PO; +PRED20TA PO
--- NOTE | 2018-11-07 04:24 | ERD ---
ER Documentation Chief Complaint Chief Complaint SOB HPI The patient is a 52-year-old female, presenting to the ER because of acute d yspnea that began around 8 PM last night, had similar symptoms previously, complains of cough for the last 3-day with substernal chest discomfort tonight. She denies fever, chills, neck pain, abdominal pain, vomiting, dizzy, diarrhea. She does not smoke nor drink Past medical history: Hypertension, asthma, diabetes mellitus, history of CHF, dyslipidemia Past surgical history: None ROS All systems reviewed and are negative except as per history of present illness. Medications Home Meds Active Scripts Prednisone* (Prednisone*) 20 Mg Tab, 40 MG PO DAILY for 3 Days, #6 TAB Prov:VIVIANA CALABRESE MD 02/27/18 Fluticasone-Vilanterol (Breo Ellipta Inhaler) 100-25 Mcg/Actuation Aer.pow.ba, 1 INH INH DAILY for 30 Days, #1 INH 5 Refills Prov:VIVIANA CALABRESE MD 02/27/18 Nifedipine (Procardia Xl) 30 Mg Tab.er.24, 60 MG PO DAILY for 30 Days, #60 TAB 5 Refills Prov:VIVIANA CALABRESE MD 02/27/18 Losartan Potassium* (Cozaar*) 50 Mg Tablet, 50 MG PO BID for 30 Days, #60 TAB 5 Refills Prov:VIVIANA CALABRESE MD 02/27/18 Isosorbide Dinitrate* (Isordil*) 10 Mg Tablet, 20 MG PO TID for 30 Days, #180 TAB 5 Refills Prov:VIVIANA CALABRESE MD 02/27/18 Atorvastatin* (Atorvastatin*) 40 Mg Tablet, 40 MG PO HS for 30 Days, #30 TAB 5 Refills Prov:VIVIANA CALABRESE MD 02/27/18 Metformin Hcl* (Metformin Hcl*) 500 Mg Tablet, 500 MG PO WITH BREAKFAST DINNE for 30 Days, #60 TAB 5 Refills Prov:VIVIANA CALABRESE MD 02/27/18 Furosemide* (Furosemide*) 40 Mg Tablet, 40 MG PO BID for 30 Days, #60 TAB 5 Refills Prov:VIVIANA CALABRESE MD 02/27/18 Glipizide* (Glipizide*) 10 Mg Tablet, 10 MG PO BID for 30 Days, #60 TAB 5 Refills Prov:VIVIANA CALABRESE MD 02/27/18 Hydrocodone/Acetaminophen ([place] 10-325 Tablet) 1 Each Tablet, 1 TAB PO Q6H PRN for PAIN, #20 TAB Prov:ISRAEL MARVIN DO 03/26/17 Albuterol Sulfate* (Proair HFA*) 8.5 Gm Hfa.aer.ad, 2 PUFF INH Q4H PRN for WHEEZING AND SOB for 30 Days, #1 INH Prov:MAGALY ROSARIO MD 01/30/17 Reported Medications Metoprolol Tartrate* (Lopressor*) 50 Mg Tab, 50 MG PO BID, #60 TAB 07/30/16 Aspirin* (Aspirin* (EC)) 81 Mg Tablet.dr, 81 MG PO DAILY, TAB 05/10/16 Allergies Allergies: Coded Allergies: Penicillins (Verified Allergy, Mild, 05/04/18) PMhx/Soc History of Surgery: Yes (C-sections) Anesthesia Reaction: No Hx Neurological Disorder: No Hx Respiratory Disorders: Yes (Asthma, increased sputum production, pneumonia) Hx Cardiac Disorders: Yes (Hypertension) Hx Psychiatric Problems: Yes (Depression) Hx Miscellaneous Medical Probl: Yes (ASTHMA, OBESITY) Hx Alcohol Use: Yes (Occassional) Hx Substance Use: No Hx Tobacco Use: No Physical Exam Vitals Vital Signs Date Temp Pulse Resp B/P (MAP) Pulse Ox O2 O2 Flow FiO2 Time Delivery Rate 11/07/18 71 18 118/68 98 Venturi 05:12 (85) Mask 11/07/18 80 28 100 Non 18.0 04:54 Rebreather Mask 11/07/18 Non 15 04:34 Rebreather 11/07/18 Non 15.0 04:25 Rebreather 11/07/18 98.4 90 22 163/74 92 04:14 (103) Physical Exam Const: No acute distress. Head: Atraumatic. Eyes: Normal Conjunctiva. ENT: Normal External Ears, Nose and Mouth. Neck: Full range of motion. No meningismus. Resp: Tachypneic, bilateral expiratory wheezes, bibasilar crackle Cardio: Regular rate and rhythm. Abd: Soft, obese, normal bowel sounds, non tender. Skin: No petechiae or rashes. Back: No midline or flank tenderness. Ext: No cyanosis, or edema. Neur: Awake and alert. No focal deficit Psych: Normal Mood and Affect. Result Diagram: 11/07/18 0425 11/07/185 Results 24 hrs Laboratory Tests Test 11/07/18 04:25 White Blood Count 9.7 10^3/ul Red Blood Count 5.06 10^6/ul Hemoglobin 14.7 g/dl Hematocrit 48.4 % Mean Corpuscular Volume 95.7 fl Mean Corpuscular Hemoglobin 29.1 pg Mean Corpuscular Hemoglobin Concent 30.4 g/dl Red Cell Distribution Width 16.2 % Platelet Count 221 10^3/UL Mean Platelet Volume 10.0 fl Immature Granulocytes % 2.100 % Neutrophils % 68.9 % Lymphocytes % 19.9 % Monocytes % 5.7 % Eosinophils % 2.8 % Basophils % 0.6 % Nucleated Red Blood Cells % 1.6 /100WBC Immature Granulocytes # 0.200 10^3/ul Neutrophils # 6.7 10^3/ul Lymphocytes # 1.9 10^3/ul Monocytes # 0.6 10^3/ul Eosinophils # 0.3 10^3/ul Basophils # 0.1 10^3/ul Nucleated Red Blood Cells # 0.2 10^3/ul Prothrombin Time 11.8 Sec Prothrombin Time Ratio 0.9 INR International Normalized Ratio 0.86 Activated Partial Thromboplast Time 27.2 Sec Sodium Level 136 mmol/L Potassium Level 5.1 mmol/L Chloride Level 98 mmol/L Carbon Dioxide Level 32 mmol/L Anion Gap 6 Blood Urea Nitrogen 31 mg/dl Creatinine 1.32 mg/dl Est Glomerular Filtrat Rate mL/min 42 mL/min Glucose Level 206 mg/dl Calcium Level 7.9 mg/dl Troponin I 0.018 ng/ml B-Type Natriuretic Peptide 903 PG/ML Current Medications Medications Dose Sig/Sarah Start Time Status Last (Trade) Ordered Route PRN Stop Time Admin Dose Reason Admin 7 mg ONCE STAT 11/07/18 DC 11/07/18 Levalbuterol INH 04:30 04:46 (Xopenex 11/07/18 04:33 Neb) Ipratropium 2 mg ONCE STAT 11/07/18 DC 11/07/18 [place] INH 04:30 04:46 (Atrovent 11/07/18 04:33 0.02% (Neb)) 125 mg ONCE ONCE 11/07/18 DC 11/07/18 Methylprednis IV 04:30 04:37 olone Sodium 11/07/18 04:33 Succinate (Solu-Medrol) Magnesium 50 ml @ 25 ONCE ONCE 11/07/18 11/07/18 Sulfate mls/hr IVPB 05:00 04:50 11/07/18 06:59 Procedures/MDM EKG: Read by emergency physician Rate/Rhythm: Normal Sinus Rhythm 74 beats/min QRS, ST, T-waves: No ST elevation, no T inversion, LAFB, prolong QT Impression: Abnormal EKG MEDICAL MAKING DECISION: The patient is a 52-year-old female, presenting with a cute respiratory failure due to acute asthma exacerbation and acute CHF exacerbation. She was treated with Xopenex 7 mg and Atrovent 2 mg continuous nebulizer, Solu-Medrol 125 mg IV, magnesium 2 g IV for acute asthma, lasix 40 mg IV for acute CHF. She responded well to the aforementioned treatment The differential diagnoses considered include but are not limited to asthma, COPD, pneumonia, pulmonary embolus, pleural effusion, congestive heart failure. Departure Diagnosis: Primary Impression: Respiratory failure, acute Additional Impressions: Asthma exacerbation CHF exacerbation Renal insufficiency Condition: Stable Comments I discussed the findings with the patient. I discussed the patient with Dr Sanchez for 5:40am , who was made aware of the lab, the treatment, the patient condition. The patient is admitted to Tel Disclaimer: Inadvertent spelling and grammatical errors are likely due to EHR/dictation software use and do not reflect on the overall quality of patient care. Also, please note that the electronic time recorded on this note does not necessarily reflect the actual time of the patient encounter. JUDITH DAVIDSON MD November 07, 2018 04:24
[2018-11-07] MEDS ORDERED: LEVALBUTEROL (NEB) 1.25 MG/0.5 ML AMP INH STA (04:30)
[2018-11-07] MEDS ORDERED: IPRATROPIUM (NEB) 0.5 MG/2.5 ML AMP INH STA (04:30)
[2018-11-07] MEDS ORDERED: METHYLPREDNISOLONE 125 MG INJ IV ONE (04:30)
[2018-11-07] MEDS ORDERED: MAGNESIUM SULFATE 2 GM/50 ML 50 ML IVPB ONE (05:00)
[2018-11-07] MEDS ORDERED: FUROSEMIDE 40 MG INJ IV ONE ×2 (06:00→11:00)
[2018-11-07] MEDS ORDERED: ONDANSETRON 4 MG INJ IV PRN (07:00)
[2018-11-07] MEDS ORDERED: ACETAMINOPHEN 325 MG TAB PO PRN (07:00)
[2018-11-07] MEDS ORDERED: METO-407 PO (07:56)
[2018-11-07] MEDS ORDERED: LOSA100T15 PO (07:57)
[2018-11-07] MEDS ORDERED: OMEG1CAP2 PO (07:58)
[2018-11-07] MEDS ORDERED: ASPI81TA52 PO (07:58)
[2018-11-07] MEDS ORDERED: ISOS20TA19 PO (07:58)
[2018-11-07] MEDS ORDERED: NIFE60TA24 PO (07:59)
[2018-11-07] MEDS ORDERED: FURO-110 PO (07:59)
[2018-11-07] MEDS ORDERED: GLIP10TA14 PO (07:59)
[2018-11-07] MEDS ORDERED: METF500T24 PO (08:00)
[2018-11-07] MEDS ORDERED: ATOR40TA68 PO (08:00)
[2018-11-07] MEDS ORDERED: GABA300C16 PO (08:01)
[2018-11-07] MEDS ORDERED: LOSARTAN 50 MG TAB PO SCH (11:00)
[2018-11-07] MEDS ORDERED: FUROSEMIDE 40 MG INJ IV SCH (11:00)
[2018-11-07] MEDS ORDERED: ALBUTEROL/IPRATROPIUM (NEB) 3 ML AMP HHN PRN (11:00)
--- NOTE | 2018-11-07 11:27 | CONS ---
Assessment/Plan Cardiology NYHA: II Heart Failure Type: Acute on Chronic Heart Failure Type: Diastolic Assessment/Plan Hospital Course (Demo Recall) Acute decompensated diastolic congestive heart failure Respiratory failure, on BiPAP Diabetes Hypertension Dyslipidemia Morbid obesity -Patient presents with symptoms of progressive worsening shortness of breath, cough for the past week. She is currently on BiPAP. -Chest x-ray with evidence of pulmonary vascular congestion/edema, will give additional dose of IV Lasix now, if no significant improvement, consider Bumex drip -Patient also with history of asthma, possible concomitant component -We will obtain serial cardiac enzymes, echocardiogram Consultation Date/Type/Reason Admit Date/Time Type of Consult Cardiology Reason for Consultation Shortness of breath Date/Time of Note DATE: 11/07/18 TIME: 11:22 Hx of Present Illness This is a 52-year-old female past medical history of diastolic congestive heart failure, hypertension, dyslipidemia, morbid obesity who presents with worsening shortness of breath. As per the son at bedside, patient has not been feeling well over the past week. Patient with increased cough, shortness of breath. Yesterday morning, patient with worsening shortness of breath and fatigue. Patient also with productive cough. As per the son, patient is noncompliant w hen it comes to diet of low-sodium or calorie restriction. He is unsure regarding her medication compliance. She does have home oxygen at home which she uses intermittently, she has had to use it on a more frequent basis of the past few days. 12 point review of systems was performed with all pertinent positives and negatives mentioned above and all else is negative Past Medical History Medical History: congestive heart failure, diabetes, hypertension Home Meds Reported Medications Gabapentin* (Gabapentin*) 300 Mg Capsule, 300 MG PO TID, #90 CAP 11/07/18 Atorvastatin* (Atorvastatin*) 40 Mg Tablet, 40 MG PO QHS, #30 TAB 11/07/18 Metformin Hcl* (Metformin Hcl*) 500 Mg Tablet, 500 MG PO WITH BREAKFAST DINNE, #60 TAB 11/07/18 Nifedipine* (Afeditab CR*) 60 Mg Tablet.er, 60 MG PO DAILY, #30 TAB.SA 11/07/18 Furosemide* (Lasix*) 20 Mg Tablet, 20 MG PO BID, TAB 11/07/18 Glipizide* (Glipizide*) 10 Mg Tablet, 10 MG PO BID, TAB 11/07/18 Isosorbide Dinitrate* (Isosorbide Dinitrate*) 20 Mg Tablet, 20 MG PO TID, TAB 11/07/18 Aspirin (Low Dose Aspirin) 81 Mg Tablet.dr, 81 MG PO DAILY, #30 TAB 11/07/18 [place]-3 Acid Ethyl Esters (Lovaza) 1 Gm Capsule, 1 GM PO BID, CAP 11/07/18 Losartan Potassium* (Losartan Potassium*) 100 Mg Tablet, 100 MG PO DAILY, TAB 11/07/18 Metoprolol Tartrate* (Lopressor*) 100 Mg Tablet, 100 MG PO TID, #60 TAB 11/07/18 Discontinued Reported Medications Metoprolol Tartrate* (Lopressor*) 50 Mg Tab, 50 MG PO BID, #60 TAB 07/30/16 Aspirin* (Aspirin* (EC)) 81 Mg Tablet.dr, 81 MG PO DAILY, TAB 05/10/16 Discontinued Scripts Prednisone* (Prednisone*) 20 Mg Tab, 40 MG PO DAILY for 3 Days, #6 TAB Prov:VIVIANA CALABRESE MD 02/27/18 Fluticasone-Vilanterol (Breo Ellipta Inhaler) 100-25 Mcg/Actuation Aer.pow.ba, 1 INH INH DAILY for 30 Days, #1 INH 5 Refills Prov:VIVIANA CALABRESE MD 02/27/18 Nifedipine (Procardia Xl) 30 Mg Tab.er.24, 60 MG PO DAILY for 30 Days, #60 TAB 5 Refills Prov:VIVIANA CALABRESE MD 02/27/18 Losartan Potassium* (Cozaar*) 50 Mg Tablet, 50 MG PO BID for 30 Days, #60 TAB 5 Refills Prov:VIVIANA CALABRESE MD 02/27/18 Isosorbide Dinitrate* (Isordil*) 10 Mg Tablet, 20 MG PO TID for 30 Days, #180 TAB 5 Refills Prov:VIVIANA CALABRESE MD 02/27/18 Atorvastatin* (Atorvastatin*) 40 Mg Tablet, 40 MG PO HS for 30 Days, #30 TAB 5 Refills Prov:VIVIANA CALABRESE MD 02/27/18 Metformin Hcl* (Metformin Hcl*) 500 Mg Tablet, 500 MG PO WITH BREAKFAST DINNE for 30 Days, #60 TAB 5 Refills Prov:VIVIANA CALABRESE MD 02/27/18 Furosemide* (Furosemide*) 40 Mg Tablet, 40 MG PO BID for 30 Days, #60 TAB 5 R efills Prov:VIVIANA CALABRESE MD 02/27/18 Glipizide* (Glipizide*) 10 Mg Tablet, 10 MG PO BID for 30 Days, #60 TAB 5 Refills Prov:VIVIANA CALABRESE MD 02/27/18 Hydrocodone/Acetaminophen ([place] 10-325 Tablet) 1 Each Tablet, 1 TAB PO Q6H PRN for PAIN, #20 TAB Prov:ISRAEL MARVIN DO 03/26/17 Albuterol Sulfate* (Proair HFA*) 8.5 Gm Hfa.aer.ad, 2 PUFF INH Q4H PRN for WHEEZING AND SOB for 30 Days, #1 INH Prov:MAGALY ROSARIO MD 01/30/17 Medications Current Medications Ondansetron HCl (Zofran Inj) 4 mg ER BRIDGE PRN IV NAUSEA/VOMITING; Start 11/07/18 at 07:00; Stop 11/08/18 at 06:59 Acetaminophen (Tylenol Tab) 650 mg ER BRIDGE PRN PO .MILD PAIN 1-3 OR TEMP; Start 11/07/18 at 07:00; Stop 11/08/18 at 06:59 Aspirin (Halfprin) 81 mg DAILY PO ; Start 11/07/18 at 11:00; Status UNV Atorvastatin Calcium (Lipitor) 40 mg QHS PO ; Start 11/07/18 at 21:00; Status UNV Gabapentin (Neurontin) 300 mg TID PO ; Start 11/07/18 at 13:00; Status UNV Glipizide (Glucotrol) 10 mg BID PO ; Start 11/07/18 at 11:00; Status UNV Isosorbide Dinitrate (Isordil) 20 mg TID PO ; Start 11/07/18 at 13:00; Status UNV Losartan Potassium (Cozaar) 100 mg DAILY PO ; Start 11/07/18 at 11:00; Status UNV Metoprolol Tartrate (Lopressor) 100 mg TID PO ; Start 11/07/18 at 13:00; Status UNV Nifedipine (Procardia Xl) 60 mg DAILY PO ; Start 11/07/18 at 11:00; Status UNV Furosemide (Lasix) 40 mg BID IV ; Start 11/07/18 at 11:00; Status UNV Albuterol/ Ipratropium (Duoneb) 3 ml Q6 PRN HHN SHORTNESS OF BREATH; Start 11/07/18 at 11:00; Status UNV Insulin Aspart (Novolog Insulin Pen) NOVOLOG *MODERATE* ALGORITHM WITH MEALS BEDTIME SC ; Start 11/07/18 at 12:00; Status UNV Miscellaneous Information (* Miscellaneous Pharmacy Order) Discontinue all previ... ONCE ONCE XX ; Start 11/07/18 at 11:00; Stop 11/07/18 at 11:01; Status UNV Furosemide (Lasix) 60 mg ONCE ONCE IV ; Start 11/07/18 at 11:00; Stop 11/07/18 at 11:01; Status UNV Allergies: Coded Allergies: Penicillins (Verified Allergy, Mild, 11/07/18) Social History Smoking Status: Never smoker Exam/Review of Systems Vital Signs Vitals Vital Signs Date Temp Pulse Resp B/P (MAP) Pulse Ox O2 O2 Flow FiO2 Time Delivery Rate 11/07/18 70 16 127/72 96 BIPAP 08:26 (90) 11/07/18 40 07:15 11/07/18 18.0 05:52 11/07/18 98.4 04:14 Exam Exam Sleeping but arousable, follows commands, on BiPAP, son at bedside, morbidly obese Head: normocephalic Respiratory: other (Coarse breath sounds bilaterally, scattered crackles) Cardiovascular: regular rate and rhythm, systolic murmur (S1-S2 heard) Gastrointestinal: soft, non-tender, bowel sounds Extremities: edema Labs Result Diagram: 11/07/18 0425 11/07/18 0425 Results 24hrs Laboratory Tests Test 11/07/18 04:25 11/07/18 05:37 White Blood Count 9.7 Red Blood Count 5.06 Hemoglobin 14.7 Hematocrit 48.4 H Mean Corpuscular Volume 95.7 Mean Corpuscular Hemoglobin 29.1 Mean Corpuscular Hemoglobin Concent 30.4 L Red Cell Distribution Width 16.2 H Platelet Count 221 Mean Platelet Volume 10.0 Immature Granulocytes % 2.100 H Neutrophils % 68.9 Lymphocytes % 19.9 Monocytes % 5.7 Eosinophils % 2.8 Basophils % 0.6 Nucleated Red Blood Cells % 1.6 H Immature Granulocytes # 0.200 H Neutrophils # 6.7 Lymphocytes # 1.9 Monocytes # 0.6 Eosinophils # 0.3 Basophils # 0.1 Nucleated Red Blood Cells # 0.2 H Prothrombin Time 11.8 L Prothrombin Time Ratio 0.9 INR International Normalized Ratio 0.86 Activated Partial Thromboplast Time 27.2 Sodium Level 136 Potassium Level 5.1 Chloride Level 98 Carbon Dioxide Level 32 H Anion Gap 6 Blood Urea Nitrogen 31 H Creatinine 1.32 H Est Glomerular Filtrat Rate mL/min 42 L Glucose Level 206 Calcium Level 7.9 L Troponin I 0.018 B-Type Natriuretic Peptide 903 H Blood Gas Specimen Source Blood arterial Arterial Blood Date Drawn 11/07/2018 5:40:54 AM Arterial Blood pH (Temp corrected) 7.254 *L Arterial Blood pCO2 (Temp correct) 63.8 H Arterial Blood pO2 (Temp corrected) 92.0 Arterial Blood HCO3 27.6 H Arterial Blood Base Excess -1.2 Arterial Blood Oxygen Saturation 96.3 [place] Test ACCEPTAB Arterial Blood Gas Puncture Site Right Radial Arterial Blood Carboxyhemoglobin 1.3 Arterial Blood Methemoglobin 0.4 Blood Gas A-a O2 Differential 156.3 H Oxyhemoglobin Percent 94.7 Blood Gas Temperature 37.0 Blood Gas Modality MASK - SIMPLE FiO2 45.0 Blood Gas Critical Value Read Back M STUART RAMÍREZ Blood Gas Notified Whom UP Blood Gas Notified Time 11/07/2018 5:55:21 AM Imaging Imaging ECG sinus rhythm at 74 bpm, QRS 94 ms, left anterior fascicular block, nonspecific ST abnormalities Medications Medications Current Medications Ondansetron HCl (Zofran Inj) 4 mg ER BRIDGE PRN IV NAUSEA/VOMITING; Start 11/07/18 at 07:00; Stop 11/08/18 at 06:59 Acetaminophen (Tylenol Tab) 650 mg ER BRIDGE PRN PO .MILD PAIN 1-3 OR TEMP; Start 11/07/18 at 07:00; Stop 11/08/18 at 06:59 Aspirin (Halfprin) 81 mg DAILY PO ; Start 11/07/18 at 11:00; Status UNV Atorvastatin Calcium (Lipitor) 40 mg QHS PO ; Start 11/07/18 at 21:00; Status UNV Gabapentin (Neurontin) 300 mg TID PO ; Start 11/07/18 at 13:00; Status UNV Glipizide (Glucotrol) 10 mg BID PO ; Start 11/07/18 at 11:00; Status UNV Isosorbide Dinitrate (Isordil) 20 mg TID PO ; Start 11/07/18 at 13:00; Status UNV Losartan Potassium (Cozaar) 100 mg DAILY PO ; Start 11/07/18 at 11:00; Status UNV Metoprolol Tartrate (Lopressor) 100 mg TID PO ; Start 11/07/18 at 13:00; Status UNV Nifedipine (Procardia Xl) 60 mg DAILY PO ; Start 11/07/18 at 11:00; Status UNV Furosemide (Lasix) 40 mg BID IV ; Start 11/07/18 at 11:00; Status UNV Albuterol/ Ipratropium (Duoneb) 3 ml Q6 PRN HHN SHORTNESS OF BREATH; Start 11/07/18 at 11:00; Status UNV Insulin Aspart (Novolog Insulin Pen) NOVOLOG *MODERATE* ALGORITHM WITH MEALS BEDTIME SC ; Start 11/07/18 at 12:00; Status UNV Miscellaneous Information (* Miscellaneous Pharmacy Order) Discontinue all previ... ONCE ONCE XX ; Start 11/07/18 at 11:00; Stop 11/07/18 at 11:01; Status UNV Furosemide (Lasix) 60 mg ONCE ONCE IV ; Start 11/07/18 at 11:00; Stop 11/07/18 at 11:01; Status UNV Jose Manuel Lamas DO November 07, 2018 11:27
[2018-11-07] MEDS ORDERED: GLUCAGON 1 MG INJ IM PRN (12:00)
[2018-11-07] MEDS ORDERED: GLUCOSE GEL 15 GRAM TUBE PO PRN ×2 (12:00)
[2018-11-07] MEDS ORDERED: DEXTROSE 50% 50 ML SYRINGE IV PRN ×2 (12:00)
[2018-11-07] MEDS ORDERED: GLUCOSE GEL 15 GRAM TUBE BUCCAL PRN (12:00)
[2018-11-07] MEDS: NIFEdipine (XL) 60 MG TAB PO SCH (12:54)
[2018-11-07] MEDS: ASPIRIN (EC) 81 MG TAB PO SCH (12:54)
[2018-11-07] MEDS: GABAPENTIN 300 MG CAP PO SCH ×2 (12:55→21:18)
[2018-11-07] MEDS: ISOSORBIDE DINITRATE 20 MG TAB PO SCH ×2 (12:55→21:19)
[2018-11-07] MEDS: glipiZIDE 10 MG TAB PO SCH ×2 (13:10→21:23)
[2018-11-07] MEDS: INSULIN ASPART [NOVOLOG] 3 ML PEN SC SCH ×3 (13:12→21:00)
[2018-11-07] MEDS: METOPROLOL 100 MG TAB PO SCH ×2 (13:13→21:18)
--- NOTE | 2018-11-07 13:54 | RADRPT ---
Echocardiogram Report Patient Name: JAMAR REYESPatient ID: [id number] : 1965 (52y 11m)Study Date: 11/07/2018 11:27:06 AM Gender: FAccession #: [id number] Tech: Nathanael Sampson RDCS Location: [facility] Ref.Physician: LE COREY Height(Cm): BSA: Weight(Kg): Quality: AdequateOrder Physician: LE COREY Account #: Procedures: Echocardiographic Report: Transthoracic echocardiogram with complete 2D, M-Mode, and doppler examination. Indications: Evaluate Left Ventricular function. Measurements: 2D/M Mode Doppler Measurement Value Normal Range Measurement Value Normal Range LVIDd 2D 5.2 [ 3.8 - 5.2 ] cm AV Peak Edwin 2.1 [ 100.0 - 170.0 ] cm/sec LVIDs 2D 3.0 [ 2.2 - 3.5 ] cm AV Peak PG 17.0 [ 2.0 - 9.0 ] mmHg LVPWd 2D 1.4 [ 0.6 - 0.9 ] cm LVOT Peak Edwin 1.1 [ 70.0 - 110.0 ] cm/sec IVSd 2D 1.0 [ 0.6 - 0.9 ] cm LVOT Peak PG 5.0 [ 2.0 - 6.0 ] mmHg IVS/LVPW 2D 0.7 ratio MV E Peak Edwin 1.2 [ 60.0 - 130.0 ] cm/sec AoR Diam 2D 3.4 [ 2.3 - 3.1 ] cm MV A Peak Edwin 1.3 [ 100.0 - 120.0 ] cm/sec LA/Ao 2D 1 ratio MV E/A 0.9 [ 0.8 - 1.5 ] ratio LA Dimen 2D 3.5 [ 2.7 - 3.8 ] cm MV Decel Time 250 [ 104 - 258 ] msec Lat E` Edwin 0.1 [ 10.0 - 15.0 ] cm/sec MV E/A 0.9 [ 0.8 - 1.5 ] ratio TR Peak Edwin 3.6 [ 100.0 - 280.0 ] cm/sec TR Peak PG 52.0 mmHg RVSP 67.0 [ 10.0 - 36.0 ] mmHg RA Pressure 15.0 mmHg Findings: Left Ventricle: Normal left ventricular systolic function. Normal left ventricular cavity size. Moderate asymmetric septal hypertrophy. Ejection fraction is visually estimated at 60 %. Tissue Doppler/Mitral Doppler indices are consistent with impaired relaxation (Stage I diastolic dysfunction). Right Ventricle: Normal right ventricular size. Normal right ventricular systolic function. Left Atrium: The left atrium is normal in size. Right Atrium: The right atrium is normal in size. Mitral Valve: Mild mitral leaflet calcification. Moderate mitral annular calcification. Mild mitral valve regurgitation. Aortic Valve: Aortic sclerosis without significant stenosis. Trace aortic valve regurgitation. Tricuspid Valve: Normal appearance of the tricuspid valve. The estimated Peak RVSP is 67 mmHg. There is moderate tricuspid regurgitation. Pulmonic Valve: Normal pulmonic valve appearance. Pericardium: Normal pericardium with no significant pericardial effusion. Aorta: Normal aortic root. IVC: Dilated IVC without respiratory collapse consistent with elevated right atrial pressure. Conclusions: Normal left ventricular systolic function. Normal left ventricular cavity size. Moderate asymmetric septal hypertrophy. Ejection fraction is visually estimated at 60 %. Tissue Doppler/Mitral Doppler indices are consistent with impaired relaxation (Stage I diastolic dysfunction). Normal right ventricular size. Normal right ventricular systolic function. The left atrium is normal in size. The right atrium is normal in size. Mild mitral valve regurgitation. Aortic sclerosis without significant stenosis. Trace aortic valve regurgitation. The estimated Peak RVSP is 67 mmHg. There is moderate tricuspid regurgitation. Normal pericardium with no significant pericardial effusion. Electronically Signed By: Jose Manuel Lamas 2018-11-07 13:52:53 PDT
--- NOTE | 2018-11-07 15:12 | HP ---
DATE OF ADMISSION: 11/07/2018 CHIEF COMPLAINT: Chest pain and shortness of breath. HISTORY OF PRESENT ILLNESS: A 52-year-old moderately obese female with multiple medical problems inc luding chronic asthma, obstructive sleep apnea, hypertension and type 2 diabetes mellitus presented t o emergency room with complaints of acute shortness of breath that started about 8:00 p.m. the night prior to admission. The patient also reports substernal chest discomfort. She has had history of no ncompliance with medical therapy. Initial evaluation in the emergency room revealed acute respirator y distress due to CHF exacerbation. Chest x-ray showed pulmonary vascular congestion. The patient w as placed on BiPAP and received IV Lasix. PAST MEDICAL HISTORY: 1. Hypertension. 2. Type 2 diabetes mellitus. 3. History of chronic asthma. 4. Obstructive sleep apnea. 5. Chronic congestive heart failure. 6. Hyperlipidemia. MEDICATIONS PRIOR TO ADMISSION: 1. Breo inhaler. 2. Procardia XL 60 mg daily. 3. Losartan 50 mg mass b.i.d. 4. Isosorbide dinitrate 20 mg t.i.d. 5. Lipitor 40 mg daily. 6. Metformin 500 mg b.i.d. 7. Lasix 40 mg b.i.d. 8. Glipizide 10 mg b.i.d. 9. [place] as needed. 10. Albuterol inhaler. 11. Lopressor 50 mg b.i.d. 12. Aspirin 81 mg daily. ALLERGIES: THE PATIENT IS ALLERGIC TO PENICILLIN. SOCIAL HISTORY: She denies tobacco use and drinks alcohol occasionally. PHYSICAL EXAMINATION: GENERAL: Well-developed, well-nourished, moderately obese female who is in mild respiratory distress . She is on BiPAP. VITAL SIGNS: Stable. Saturation is 96% on 40% of FiO2. LUNGS: Mild rhonchi. CARDIAC: Regular rate and rhythm. Distant heart sounds. ABDOMEN: Soft, obese, nontender, nondistended. Normoactive bowel sounds. EXTREMITIES: No clubbing, cyanosis or edema. NEUROLOGICAL: Grossly nonfocal. LABORATORY DATA: CBC within normal limits. Basic metabolic panel shows BUN of 31, creatinine of 1.3 2. Troponin of 0.018. BNP is elevated at 903. ASSESSMENT: 1. A 52-year-old female presenting with acute congestive heart failure exacerbation. A 2D echo from 02/2018 showed normal ejection fraction. 2. History of asthma. 3. Obstructive sleep apnea. 4. Hypertension. 5. Type 2 diabetes mellitus. 6. Hyperlipidemia. 7. Stage III chronic kidney disease. 8. History of noncompliance with medical therapy. PLAN: 1. Place in tele observation. 2. Serial troponins. 3. IV Lasix. 4. Repeat 2D echo. 5. Resume selective home medications. 6. Cardiology consultation was requested. Dictated By: LE MILLER/RATNA Conf#: [id number] DID#: [id number] CC: JUDITH DAVIDSON MD;*End*
[2018-11-07 16:00] VITALS: Ht 154.9 cm; Wt 114.8 kg
[2018-11-07 16:10] VITALS: BP 138/75; PULSE 61; RESP 16
[2018-11-07] MEDS: FUROSEMIDE 40 MG INJ IV SCH (17:19)
[2018-11-07 17:47] VITALS: PULSE 95
[2018-11-07 20:00] VITALS: BP 123/62; PULSE 71; PULSE 80; RESP 18
[2018-11-07] MEDS: ATORVASTATIN 40 MG TAB PO SCH (21:18)
[2018-11-08] VITALS (10 sets, daily range): BP systolic 121–146; BP diastolic 6–80; PULSE 51–76; RESP 18–21
[2018-11-08] MEDS: FUROSEMIDE 40 MG INJ IV SCH ×2 (05:56→17:20)
[2018-11-08] MEDS: INSULIN ASPART [NOVOLOG] 3 ML PEN SC SCH ×4 (08:00→20:29)
[2018-11-08] MEDS: ISOSORBIDE DINITRATE 20 MG TAB PO SCH ×3 (08:24→20:30)
[2018-11-08] MEDS: glipiZIDE 10 MG TAB PO SCH ×2 (08:24→20:29)
[2018-11-08] MEDS: NIFEdipine (XL) 60 MG TAB PO SCH (08:24)
[2018-11-08] MEDS: GABAPENTIN 300 MG CAP PO SCH ×3 (08:24→20:28)
[2018-11-08] MEDS: ASPIRIN (EC) 81 MG TAB PO SCH (08:24)
[2018-11-08] MEDS: METOPROLOL 100 MG TAB PO SCH (08:27)
[2018-11-08] MEDS: BISACODYL 10 MG SUPP PR SCH (16:30)
--- NOTE | 2018-11-08 16:32 | PN ---
Date/Time of Note Date/Time of Note DATE: 11/08/18 TIME: 16:31 Assessment/Plan VTE Prophylaxis Risk score (from Ns)>0 risk: 4 SCD applied (from Ns): Yes Pharmacological prophylaxis: LMWH Lines/Catheters IV Catheter Type (from Nrs): Saline Lock Urinary Cath still in place: No Assessment/Plan Assessment/Plan 1. Ms. Miles is a 52-year-old woman who presented yesterday with an acute congestive heart failure exacerbation. A 2D echo nine months ago showed normal ejection fraction, and echo yesterday showed only moderate asymmetric septal hypertrophy with a normal ejection fraction of 60%. She also had evidence for Stage I diastolic dysfunction. Serial troponins were negative for ischemia. 2. History of asthma 3. Obstructive sleep apnea, on BiPAP 4. Hypertension 5. Type 2 diabetes mellitus 6. Hyperlipidemia 7. Stage III chronic kidney disease PLAN: 1. Continue on telemetry observation. 2. Continue with IV Lasix 3. Resume selective home medications, but switch to Atrovent q4h 4. Bowel management with Colace and dulcolax suppository 5. DVT prevention with LMWH 6. GI protection with famotidine 7. Patient is full-code 8. Disposition: home when stabilized, anticipating continued home oxygen Trevor Jones MD PhD [facility] [phone] Result Diagram: 11/07/18 0425 11/08/18 0509 Results 24hrs Laboratory Tests Test 11/07/18 17:24 11/07/18 20:50 11/08/18 05:09 11/08/18 07:54 Bedside Glucose 200 169 149 Sodium Level 137 Potassium Level 5.0 Chloride Level 98 Carbon Dioxide Level 31 Anion Gap 8 Blood Urea Nitrogen 47 #H Creatinine 1.36 H Est Glomerular Filtrat 41 L Rate mL/min Glucose Level 139 # Calcium Level 7.8 L Test 11/08/18 12:11 Bedside Glucose 74 Exam/Review of Systems Exam Vitals Vital Signs Date Temp Pulse Resp B/P (MAP) Pulse Ox O2 O2 Flow FiO2 Time Delivery Rate 11/08/18 96 6.0 15:34 11/08/18 98.2 59 20 121/67 Nasal 15:05 (85) Cannula 11/07/18 40 11:00 Intake and Output 11/07/18 11/07/18 11/08/18 1515:00 23:00 07:00 IntakeIntake Total 300 ml BalanceBalance 300 ml Exam GENERAL: Large, frequent wheezing cough, mild respiratory distress. HEENT: PERRL, EOMI, no icterus. No JVD LUNGS: Moderate diffuse rhonchi and wheezing. Struggling to expand chest CVS: Regular rhythm, rapid rate, 2/6 RUSB systolic murmur. Good peripheral perfusion with no edema. ABD: Soft, obese, non-tender. Normal bowel sounds. MSk: No clubbing, cyanosis or edema. No arthritis NEURO: Alert, oriented, cranial nerves/motor/light touch sensation intact. Intact speech and memory. Appropriate affect. SKIN: No rash Results Results 24hrs Laboratory Tests Test 11/07/18 17:24 11/07/18 20:50 11/08/18 05:09 11/08/18 07:54 Bedside Glucose 200 169 149 Sodium Level 137 Potassium Level 5.0 Chloride Level 98 Carbon Dioxide Level 31 Anion Gap 8 Blood Urea Nitrogen 47 #H Creatinine 1.36 H Est Glomerular Filtrat 41 L Rate mL/min Glucose Level 139 # Calcium Level 7.8 L Test 11/08/18 12:11 Bedside Glucose 74 Medications Medication Current Medications Aspirin (Halfprin) 81 mg DAILY PO Last administered on 11/08/18 08:24; Admin Dose 81 MG; Start 11/07/18 at 11:00 Atorvastatin Calcium (Lipitor) 40 mg QHS PO Last administered on 11/07/18 21:18; Admin Dose 40 MG; Start 11/07/18 at 21:00 Gabapentin (Neurontin) 300 mg TID PO Last administered on 11/08/18 13:25; Admin Dose 300 MG; Start 11/07/18 at 13:00 Glipizide (Glucotrol) 10 mg BID PO Last administered on 11/08/18 08:24; Admin Dose 10 MG; Start 11/07/18 at 11:00 Isosorbide Dinitrate (Isordil) 20 mg TID PO Last administered on 11/08/18 13:25; Admin Dose 20 MG; Start 11/07/18 at 13:00 Metoprolol Tartrate (Lopressor) 100 mg TID PO Last administered on 11/08/18 08: 27; Admin Dose 100 MG; Start 11/07/18 at 13:00; Status Hold Nifedipine (Procardia Xl) 60 mg DAILY PO Last administered on 11/08/18at 08:24; Admin Dose 60 MG; Start 11/07/18 at 11:00 Albuterol/ Ipratropium (Duoneb) 3 ml Q6 PRN HHN SHORTNESS OF BREATH; Start 11/07/18 at 11:00 Insulin Aspart (Novolog Insulin Pen) NOVOLOG *MODERATE* ALGORITHM WITH MEALS BEDTIME SC Last administered on 11/07/18at 17:38; Admin Dose 4 UNIT; Start 11/07/18 at 12:00 Furosemide (Lasix) 40 mg BID DIURETICS IV Last administered on 11/08/18at 05:56; Admin Dose 40 MG; Start 11/07/18 at 18:00 Miscellaneous Information 1 ea NOTE XX ; Start 11/07/18 at 12:00 Glucose (Glutose) 15 gm Q15M PRN PO DECREASED GLUCOSE; Start 11/07/18 at 12:00 Glucose (Glutose) 22.5 gm Q15M PRN PO DECREASED GLUCOSE; Start 11/07/18 at 12:00 Dextrose (D50w Syringe) 25 ml Q15M PRN IV DECREASED GLUCOSE; Start 11/07/18 at 12:00 Dextrose (D50w Syringe) 50 ml Q15M PRN IV DECREASED GLUCOSE; Start 11/07/18 at 12:00 Glucagon (Glucagen) 1 mg Q15M PRN IM DECREASED GLUCOSE; Start 11/07/18 at 12:00 Glucose (Glutose) 15 gm Q15M PRN BUCCAL DECREASED GLUCOSE; Start 11/07/18 at 12:00 SUBHASH JONES M.D. Nov 08, 2018 16:32
[2018-11-08] MEDS: ATORVASTATIN 40 MG TAB PO SCH (20:28)
[2018-11-08] MEDS: DOCUSATE SODIUM 100 MG CAP PO SCH (20:28)
[2018-11-09] VITALS (12 sets, daily range): BP systolic 123–143; BP diastolic 64–70; PULSE 56–92; RESP 18–21
[2018-11-09] MEDS: FUROSEMIDE 40 MG INJ IV SCH ×2 (06:13→17:40)
[2018-11-09] MEDS: INSULIN ASPART [NOVOLOG] 3 ML PEN SC SCH ×4 (08:00→20:58)
[2018-11-09] MEDS: DOCUSATE SODIUM 100 MG CAP PO SCH ×2 (08:55→20:56)
[2018-11-09] MEDS: NIFEdipine (XL) 60 MG TAB PO SCH (08:55)
[2018-11-09] MEDS: ISOSORBIDE DINITRATE 20 MG TAB PO SCH ×3 (08:55→20:58)
[2018-11-09] MEDS: BISACODYL 10 MG SUPP PR SCH (08:55)
[2018-11-09] MEDS: GABAPENTIN 300 MG CAP PO SCH ×3 (08:56→20:56)
[2018-11-09] MEDS: glipiZIDE 10 MG TAB PO SCH ×2 (08:56→20:57)
[2018-11-09] MEDS: ASPIRIN (EC) 81 MG TAB PO SCH (08:56)
--- NOTE | 2018-11-09 09:07 | CONS ---
Assessment/Plan Cardiology NYHA: II Heart Failure Type: Acute on Chronic Heart Failure Type: Diastolic Consultation Date/Type/Reason Admit Date/Time November 07, 2018 at 06:41 Initial Consult Date Type of Consult Cardiology Date/Time of Note DATE: 11/09/18 TIME: 09:06 24 HR Interval Summary Free Text/Dictation Acute decompensated diastolic congestive heart failure Respiratory failure, on BiPAP Diabetes Hypertension Dyslipidemia Morbid obesity off CPAP still short of breath with decreased breath sounds renal function penidng if Creatinine stable would give Bumex drip 1mg/hr x 4 hrs Exam/Review of Systems Vital Signs Vitals Vital Signs Date Temp Pulse Resp B/P (MAP) Pulse Ox O2 O2 Flow FiO2 Time Delivery Rate 11/09/18 58 08:17 11/09/18 97.5 21 130/70 96 Nasal 07:33 (90) Cannula 11/09/18 6.0 04:30 11/07/18 40 11:00 Intake and Output 11/08/18 11/08/18 11/09/18 1515:00 23:00 07:00 IntakeIntake Total 1200 ml 360 ml BalanceBalance 1200 ml 360 ml Exam Constitutional: alert, oriented Respiratory: congested cough, diminished breath sounds Cardiovascular: regular rate and rhythm Labs Result Diagram: 11/07/18 0425 11/08/18 0509 Results 24hrs Laboratory Tests Test 11/08/18 12:11 11/08/18 17:18 11/08/18 20:09 11/09/18 08:16 Bedside Glucose 74 100 161 90 Medications Medications Current Medications Aspirin (Halfprin) 81 mg DAILY PO Last administered on 11/09/18at 08:56; Admin Dose 81 MG; Start 11/07/18 at 11:00 Atorvastatin Calcium (Lipitor) 40 mg QHS PO Last administered on 11/08/18at 20:28; Admin Dose 40 MG; Start 11/07/18 at 21:00 Gabapentin (Neurontin) 300 mg TID PO Last administered on 11/09/18at 08:56; Admin Dose 300 MG; Start 11/07/18 at 13:00 Glipizide (Glucotrol) 10 mg BID PO Last administered on 11/09/18at 08:56; Admin Dose 10 MG; Start 11/07/18 at 11:00 Isosorbide Dinitrate (Isordil) 20 mg TID PO Last administered on 11/09/18 08:55; Admin Dose 20 MG; Start 11/07/18 at 13:00 Metoprolol Tartrate (Lopressor) 100 mg TID PO Last administered on 11/08/18 08:27; Admin Dose 100 MG; Start 11/07/18 at 13:00; Status Hold Nifedipine (Procardia Xl) 60 mg DAILY PO Last administered on 11/09/18 08:55; Admin Dose 60 MG; Start 11/07/18 at 11:00 Albuterol/ Ipratropium (Duoneb) 3 ml Q6 PRN HHN SHORTNESS OF BREATH Last administered on 11/08/18 17:46; Admin Dose 3 ML; Start 11/07/18 at 11:00 Insulin Aspart (Novolog Insulin Pen) NOVOLOG *MODERATE* ALGORITHM WITH MEALS BEDTIME SC Last administered on 11/07/18 17:38; Admin Dose 4 UNIT; Start 11/07/18 at 12:00 Furosemide (Lasix) 40 mg BID DIURETICS IV Last administered on 11/09/18 06:13; Admin Dose 40 MG; Start 11/07/18 at 18:00 Miscellaneous Information 1 ea NOTE XX ; Start 11/07/18 at 12:00 Glucose (Glutose) 15 gm Q15M PRN PO DECREASED GLUCOSE; Start 11/07/18 at 12:00 Glucose (Glutose) 22.5 gm Q15M PRN PO DECREASED GLUCOSE; Start 11/07/18 at 12:00 Dextrose (D50w Syringe) 25 ml Q15M PRN IV DECREASED GLUCOSE; Start 11/07/18 at 12:00 Dextrose (D50w Syringe) 50 ml Q15M PRN IV DECREASED GLUCOSE; Start 11/07/18 at 12:00 Glucagon (Glucagen) 1 mg Q15M PRN IM DECREASED GLUCOSE; Start 11/07/18 at 12:00 Glucose (Glutose) 15 gm Q15M PRN BUCCAL DECREASED GLUCOSE; Start 11/07/18 at 12 :00 Docusate Sodium (Colace) 100 mg BID PO Last administered on 11/09/18 08:55; Admin Dose 100 MG; Start 11/08/18 at 21:00 Bisacodyl (Dulcolax Supp) 10 mg DAILY PA Last administered on 11/08/18at 16:30; Admin Dose 10 MG; Start 11/08/18 at 16:30 NADYA STORY MD Nov 09, 2018 09:07
[2018-11-09] MEDS ORDERED: BUMETANIDE 4 MG in DEXTROSE 5% 24 ML IV ONE (20:00)
[2018-11-09] MEDS: ATORVASTATIN 40 MG TAB PO SCH (20:57)
[2018-11-10] VITALS (12 sets, daily range): BP systolic 128–170; BP diastolic 61–79; PULSE 60–89; RESP 18–20
[2018-11-10] MEDS: FUROSEMIDE 40 MG INJ IV SCH (05:48)
[2018-11-10] MEDS: INSULIN ASPART [NOVOLOG] 3 ML PEN SC SCH ×4 (07:36→20:46)
[2018-11-10] MEDS: glipiZIDE 10 MG TAB PO SCH ×2 (08:35→20:45)
[2018-11-10] MEDS: NIFEdipine (XL) 60 MG TAB PO SCH (08:35)
[2018-11-10] MEDS: ISOSORBIDE DINITRATE 20 MG TAB PO SCH ×3 (08:35→20:45)
[2018-11-10] MEDS: DOCUSATE SODIUM 100 MG CAP PO SCH ×2 (08:35→20:45)
[2018-11-10] MEDS: GABAPENTIN 300 MG CAP PO SCH ×3 (08:35→20:46)
[2018-11-10] MEDS: ASPIRIN (EC) 81 MG TAB PO SCH (08:35)
[2018-11-10] MEDS: BISACODYL 10 MG SUPP PR SCH (08:36)
--- NOTE | 2018-11-10 14:46 | CONS ---
Assessment/Plan Cardiology NYHA: II Heart Failure Type: Acute on Chronic Heart Failure Type: Diastolic Assessment/Plan Hospital Course (Demo Recall) Acute decompensated diastolic congestive heart failure Respiratory failure, off BiPAP Diabetes Hypertension Dyslipidemia Morbid obesity -Patient with progressive improvement in shortness of breath, will transition to p.o. Bumex -Continue blood pressure control -Of importance his medication compliance, diet and sodium restrictions Consultation Date/Type/Reason Admit Date/Time November 07, 2018 at 06:41 Initial Consult Date Type of Consult Cardiology Date/Time of Note DATE: 11/10/18 TIME: 14:44 24 HR Interval Summary Free Text/Dictation Shortness of breath is better. Denies palpitations or chest pain Exam/Review of Systems Vital Signs Vitals Vital Signs Date Temp Pulse Resp B/P (MAP) Pulse Ox O2 O2 Flow FiO2 Time Delivery Rate 11/10/18 64 12:00 11/10/18 98.3 20 148/68 94 11:32 (94) 11/10/18 Nasal 4.0 08:30 Cannula 11/07/18 40 11:00 Intake and Output 11/09/18 11/09/18 11/10/18 1515:00 23:00 07:00 IntakeIntake Total 1000 ml BalanceBalance 1000 ml Exam Constitutional: alert, oriented (Sitting in chair, no apparent distress) Head: normocephalic Respiratory: other (Coarse breath sounds bilaterally, no wheezing) Cardiovascular: regular rate and rhythm (S1-S2 heard) Gastrointestinal: soft, non-tender, bowel sounds Extremities: edema (Trace) Labs Result Diagram: 11/09/18 1314 11/09/18 1314 Results 24hrs Laboratory Tests Test 11/09/18 16:51 11/09/18 20:19 11/10/18 07:35 11/10/18 11:41 Bedside Glucose 79 137 88 90 Medications Medications Current Medications Aspirin (Halfprin) 81 mg DAILY PO Last administered on 11/10/18at 08:35; Admin Dose 81 MG; Start 11/07/18 at 11:00 Atorvastatin Calcium (Lipitor) 40 mg QHS PO Last administered on 11/09/18at 20:57; Admin Dose 40 MG; Start 11/07/18 at 21:00 Gabapentin (Neurontin) 300 mg TID PO Last administered on 11/10/18at 13:32; Admin Dose 300 MG; Start 11/07/18 at 13:00 Glipizide (Glucotrol) 10 mg BID PO Last administered on 11/10/18 08:35; Admin Dose 10 MG; Start 11/07/18 at 11:00 Isosorbide Dinitrate (Isordil) 20 mg TID PO Last administered on 11/10/18at 13:32; Admin Dose 20 MG; Start 11/07/18 at 13:00 Metoprolol Tartrate (Lopressor) 100 mg TID PO Last administered on 11/08/18at 08:27; Admin Dose 100 MG; Start 11/07/18 at 13:00; Status Hold Nifedipine (Procardia Xl) 60 mg DAILY PO Last administered on 11/10/18at 08:35; Admin Dose 60 MG; Start 11/07/18 at 11:00 Albuterol/ Ipratropium (Duoneb) 3 ml Q6 PRN HHN SHORTNESS OF BREATH Last administered on 11/08/18at 17:46; Admin Dose 3 ML; Start 11/07/18 at 11:00 Insulin Aspart (Novolog Insulin Pen) NOVOLOG *MODERATE* ALGORITHM WITH MEALS BEDTIME SC Last administered on 11/07/18at 17:38; Admin Dose 4 UNIT; Start 11/07/18 at 12:00 Furosemide (Lasix) 40 mg BID DIURETICS IV Last administered on 11/10/18at 05:48; Admin Dose 40 MG; Start 11/07/18 at 18:00 Miscellaneous Information 1 ea NOTE XX ; Start 11/07/18 at 12:00 Glucose (Glutose) 15 gm Q15M PRN PO DECREASED GLUCOSE; Start 11/07/18 at 12:00 Glucose (Glutose) 22.5 gm Q15M PRN PO DECREASED GLUCOSE; Start 11/07/18 at 12:00 Dextrose (D50w Syringe) 25 ml Q15M PRN IV DECREASED GLUCOSE; Start 11/07/18 at 12:00 Dextrose (D50w Syringe) 50 ml Q15M PRN IV DECREASED GLUCOSE; Start 11/07/18 at 12:00 Glucagon (Glucagen) 1 mg Q15M PRN IM DECREASED GLUCOSE; Start 11/07/18 at 12:00 Glucose (Glutose) 15 gm Q15M PRN BUCCAL DECREASED GLUCOSE; Start 11/07/18 at 12:00 Docusate Sodium (Colace) 100 mg BID PO Last administered on 11/10/18at 08:35; Adm in Dose 100 MG; Start 11/08/18 at 21:00 Bisacodyl (Dulcolax Supp) [address] Last administered on 11/10/18at 08:36; Admin Dose 10 MG; Start 11/08/18 at 16:30 Bumetanide 6 mg/ Dextrose 60 ml @ 10 mls/hr Q6H ONCE IV ; Start 11/10/18 at 15:00; Stop 11/10/18 at 20:59; Status Jose Manuel Boggs DO Nov 10, 2018 14:46
[2018-11-10] MEDS ORDERED: FURO-109 PO (14:47)
--- NOTE | 2018-11-10 14:48 | PDOCDIS ---
Discharge Instructions CONDITION [id number] Patient Condition: [id number] Good HOME CARE INSTRUCTIONS: [id number] Diet Instructions: [id number] Activity Restrictions: [id number] Slowly Increase Activity FOLLOW UP/APPOINTMENTS Follow-up Plan pcp [address] Lamas 1 week LE COREY MD Nov 10, 2018 14:48
[2018-11-10] MEDS ORDERED: BUMETANIDE 6 MG in DEXTROSE 5% 36 ML IV ONE (16:30)
[2018-11-10] MEDS ORDERED: BUMETANIDE 1 MG TAB PO SCH (18:00)
[2018-11-10] MEDS: ATORVASTATIN 40 MG TAB PO SCH (20:45)
== END 2018-11-10 22:20 | disposition home health service (06) | DRG 291 ==
LOC: E/R 04:08 → 6WM 06:41
PROVIDERS: ADMIT Family Medicine; ATTEND Internal Medicine
DX: I13.0 Hypertensive heart and chronic kidney disease with heart failure and stage 1 through stage 4 chronic kidney disease, or unspecified chronic kidney disease (principal); J96.90 Respiratory failure, unspecified, unspecified whether with hypoxia or hypercapnia; I50.33 Acute on chronic diastolic (congestive) heart failure; Z68.42 Body mass index [BMI] 45.0-49.9, adult; E11.8 Type 2 diabetes mellitus with unspecified complications; E66.01 Morbid (severe) obesity due to excess calories; N18.3 Chronic kidney disease, stage 3 (moderate); E78.5 Hyperlipidemia, unspecified; J45.909 Unspecified asthma, uncomplicated; F32.9 Major depressive disorder, single episode, unspecified; G47.33 Obstructive sleep apnea (adult) (pediatric)
CPT/HCPCS: 36415; 36600; 71045; 71046; 80048; 82803; 82962; 83735; 83880; 84484; 85025; 85610; 85730; 93005; 93306; 94644; 94660; 94664; 96374; 96375; J1815; J1940; J2930; J3475

== ENCOUNTER 2019-03-03 13:45 | Emergency (ER) | payer OTHER ==
[~2019-03-03] VITALS: Ht 149.9 cm; Wt 111.7 kg
[~2019-03-03 13:45] MED LIST changes: +ACET500C5 PO; -ALBU8.5H8 INH; -ASPI-1046 PO; +ASPI81TA52 PO; +BEN25 PO; -FLUT1AER INH; +FURO-109 PO; -FURO40TA4 PO; +GABA300C16 PO; -HYDR-3980 PO; -ISOS10TA2 PO; +ISOS20TA19 PO; +LOSA100T15 PO; -LOSA50TA2 PO; -METF500T24 PO; +METO-407 PO; -METO-429 PO; -NIFE30TA2 PO; +NIFE60TA24 PO; +OMEG1CAP2 PO; -PRED20TA PO
[2019-03-03 14:02] VITALS: BP 190/99; PULSE 77; RESP 18; Ht 149.9 cm; Wt 111.7 kg
[2019-03-03] MEDS ORDERED: FUROSEMIDE 20 MG TAB PO ONE (16:30)
== END 2019-03-03 16:38 | disposition home or self-care (01) ==
LOC: FTE 13:45
DX: M54.6 Pain in thoracic spine (principal); R05 Cough; M25.512 Pain in left shoulder; J45.909 Unspecified asthma, uncomplicated; I10 Essential (primary) hypertension; Z79.82 Long term (current) use of aspirin; Z79.84 Long term (current) use of oral hypoglycemic drugs
CPT/HCPCS: 71045; 80048; 83880; 84484; 85025; 93005; Z7502; Z7610